=== PATIENT | female | born 1935 | race Caucasian/White ===

== ENCOUNTER 2018-12-27 17:18 | Emergency (ER) | payer BC, MEDICARE ==
[~2018-12-27] VITALS: Ht 170.2 cm; Wt 81.6 kg
--- OUTSIDE RECORDS SUMMARY | 2018-12-27 17:24 | XMS REPORT | Referral Summary ---
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 Name Role Phone Dago Bai PCP Encounter VC Date(s): 08/15/15 - 08/15/15 [facility] Le[facility], [address] [place] [address] Discharge Diagnosis: Hypertension Discharge Diagnosis: Hypothyroidism Discharge Diagnosis: Depression Discharge Diagnosis: Arthritis Discharge Diagnosis: Tension headache Discharge Disposition: 01-Home or Self Care Attending Physician: Dago Bai MD Admitting Physician: Dago Bai MD Vital Signs Most recent to 1 oldest [Reference Range]: Temperature Tympanic 5.7 degC [36.6-38.1 degC] *LOW* (08/15/15 11:26 AM) Peripheral Pulse 60 bpm Rate [60-100 bpm] (08/15/15 11:26 AM) Respiratory Rate 16 br/min [14-20 br/min] (08/15/15 11:26 AM) Blood Pressure 168/84 mmHg [90-140/60-90 mmHg] *HI* (08/15/15 11:26 AM) Problem List Condition Effective Dates Status Health Status Informant Allergic Active rhinitis(Confirmed) Allergies(Confirmed) Active Bladder Active problem(Confirmed) Blood Active transfusion(Confirme d) Bronchitis(Confirmed Active ) Chicken Active pox(Confirmed) Constipation(Confirm Active ed) Arthritis(Confirmed) Active Tension Active headache(Confirmed) Hearing Active loss(Confirmed) Hypertension(Confirm Active ed) Hyperthyroidism(Conf Active irmed) Hypothyroidism(Confi Active rmed) Osteoarthritis(Confi Active rmed) Overweight(Confirmed Active ) Pneumonia(Confirmed) Active Depression(Confirmed Active ) Sinus Active infection(Confirmed) Thyroid Active disease(Confirmed) Allergies, Adverse Reactions, Alerts Substance Reaction Severity Status acetaminophen ILL FEELING Active codeine Active HYDROcodone ILL FEELING Active iodine Active lisinopril Active pregabalin Active sulfamethoxazole Active Medications amitriptyline 25 mg oral tablet 2 tabs, Oral, Bedtime (once a day), # 180 tabs, 3 Refill(s), Pharmacy: [facility] [id number], 2 tabs Oral Bedtime (once a day) Start Date: 11/28/14 Status: Ordered amLODIPine 2.5 mg oral tablet See Instructions, TAKE ONE TABLET BY MOUTH EVERY DAY, # 90 tabs, 3 Refill(s), eRx: [facility] [id number], TAKE ONE TABLET BY MOUTH EVERY DAY Start Date: 09/18/14 Status: Ordered chlorzoxazone 500 mg oral tablet tabs, Oral, TID, 0 Refill(s) Start Date: 11/16/14 Status: Ordered Citracal + D Oral, BID, 0 Refill(s) Start Date: 06/07/14 Status: Ordered Coreg 25 mg oral tablet 1 tabs, Oral, BID, # 60 tabs, 10 Refill(s), Pharmacy: [facility] [id number], 1 tabs Oral BID Start Date: 11/16/14 Status: Ordered Fioricet oral tablet 1 tabs, Oral, q8hr, as needed for headache, [facility], # 90 tabs, 0 Refill(s), Pharmacy: [facility] [id number] Start Date: 08/15/15 Status: Ordered furosemide 40 mg oral tablet 1 tabs, Oral, Daily, # 90 tabs, 3 Refill(s), Pharmacy: [facility] [id number], 1 tabs Oral Daily Start Date: 11/28/14 Status: Ordered Inderal LA 120 mg oral capsule, extended release 1 caps, Oral, Daily, # 90 caps, 3 Refill(s), Pharmacy: [facility], 1 caps Oral Daily Start Date: 11/16/14 Status: Ordered Klor-Con M20 oral tablet, extended release 1 tabs, Oral, Daily, # 90 tabs, 3 Refill(s), Pharmacy: [facility] [id number], 1 tabs Oral Daily Start Date: 11/28/14 Status: Ordered levothyroxine 150 mcg (0.15 mg) oral tablet See Instructions, TAKE ONE TABLET BY MOUTH ONCE DAILY, # 90 tabs, eRx: [facility], TAKE ONE TABLET BY MOUTH ONCE DAILY Start Date: 06/21/15 Status: Ordered losartan 100 mg oral tablet See Instructions, TAKE ONE TABLET BY MOUTH EVERY DAY, # 90 tabs, 3 Refill(s), Pharmacy: [facility], TAKE ONE TABLET BY MOUTH EVERY DAY Start Date: 11/16/14 Status: Ordered meloxicam 15 mg oral tablet See Instructions, TAKE ONE TABLET BY MOUTH EVERY DAY, # 90 tabs, 3 Refill(s), eRx: [facility], TAKE ONE TABLET BY MOUTH EVERY DAY Start Date: 09/18/14 Status: Ordered multivitamin Daily, 0 Refill(s) Start Date: 06/07/14 Status: Ordered PARoxetine 20 mg oral tablet See Instructions, TAKE ONE TABLET BY MOUTH EVERY DAY, # 90 tabs, 4 Refill(s), eRx: [facility], TAKE ONE TABLET BY MOUTH EVERY DAY Start Date: 09/18/14 Status: Ordered pramipexole 0.25 mg oral tablet 1 tabs, Oral, BID, # 180 tabs, 3 Refill(s), Pharmacy: [facility] [id number], 1 tabs Oral BID Start Date: 11/16/14 Status: Ordered Vitamin C with Carole Hips Daily, 0 Refill(s) Start Date: 06/07/14 Status: Ordered Results Chemistry Most recent to 1 oldest [Reference Range]: Sodium Lvl [135-144 142 mEq/L mEq/L] (08/15/15 12:00 PM) Potassium Lvl 3.8 mEq/L [3.5-5.2 mEq/L] (08/15/15 12:00 PM) Chloride [99-111 108 mEq/L mEq/L] (08/15/15 12:00 PM) CO2 [22-31 mEq/L] 26 mEq/L (08/15/15 12:00 PM) AGAP [3-20] 8 (08/15/15 12:00 PM) BUN [10-20 mg/dL] 13 mg/dL (08/15/15 12:00 PM) Glucose Lvl [70-99 149 mg/dL mg/dL] *HI* (08/15/15 12:00 PM) Creatinine Lvl 0.92 mg/dL [0.57-1.11 mg/dL] (08/15/15 12:00 PM) eGFR [>60 mL/min] 59 mL/min 1 *ABN* (08/15/1500 PM) Calcium Lvl 9.0 mg/dL [8.9-10.5 mg/dL] (08/15/1500 PM) Albumin Lvl [3.4-4.8 4.2 gm/dL gm/dL] (08/15/15:00 PM) Total Protein 6.8 gm/dL [6.2-8.1 gm/dL] (08/15/15:00 PM) Globulin [1.8-4.0 2.6 gm/dL gm/dL] (08/15/15 12:00 PM) ALT [0-55 U/L] 19 U/L (08/15/15 PM) AST [5-34 U/L] 15 U/L (08/15/15:00 PM) Alk Phos [40-150 87 U/L U/L] (08/15/15:00 PM) Bili Total [0.2-1.2 0.7 mg/dL mg/dL] (08/15/15:00 PM) Chol [0-199 mg/dL] 229 mg/dL *HI* (08/15/1500 PM) Trig [0-149 mg/dL] 126 mg/dL (08/15/15:00 PM) HDL [40-84 mg/dL] 46 mg/dL (08/15/15:00 PM) LDL [0-130 mg/dL] 158 mg/dL *HI* (08/15/1500 PM) VLDL Cholesterol 25 mg/dL [0-28 mg/dL] (08/15/15 12:00 PM) Cardiac Risk 5.0 [0.0-5.0] (08/15/15 12:00 PM) TSH with Reflex Free 1.69 T4 [0.35-4.94] (08/15/15 12:00 PM) 1Result Comment: Multiply eGFR results by 1.21 for race. Immunizations Vaccine Date Refusal Reason influenza virus vaccine, inactivated 08/15/15 influenza virus vaccine, live 08/23/13 influenza virus vaccine, live 09/24/12 pneumococcal 23-polyvalent vaccine 04/02/09 Procedures Procedure Date Related Diagnosis Body Site Colonoscopy1, 2 08/30/10 Colon cancer screening3 10/26/09 Angioplasty Appendectomy Bladder repair Heel spur, removed from right foot Hysterectomy4 Knee replacement 1Colon cancer screening 2Polyp-like structures removed was benign, with inflammatory changes 3colonoscopy, polyp 4First year she had an abnormal then years later she had a vaginal hyst. Social History Social History Type Response Smoking Status Never smoker Assessment and Plan Extracted from: Title: Office Visit Note Author: Dago Bai MD Date: 08/15/15 Assessment/Plan Arthritis, Polyosteoarthritis, unspecified Chronic stable no change in current treatment. Ordered: Office Visit Level 4 Est 35373 Depression, Major depressive disorder, recurrent, mild Depression appears to be well-controlled no change in current treatment recommended. Ordered: Office Visit Level 4 Est 58715 Episodic tension-type headache, not intractable, Tension headache She feels like her headaches are pretty significantly since being on the Inderal will continue that without change. Fioricet was refilled. Ordered: Office Visit Level 4 Est 80036 Essential (primary) hypertension, Hypertension Blood pressures a little high here but it's been normal at home. No change in current treatment recommended. Fasting laboratory studies ordered today. Follow-up in 6 months. Ordered: influenza virus vaccine, inactivated, 0.5 mL, IntraMuscular, Once, First Dose: 08/15/15 12:00:00 CDT, Stop Date: 08/15/15 12:00:00 CDT Comprehensive Metabolic Panel Lipid Panel Office Visit Level 4 Est 25006 Hypothyroidism, Hypothyroidism, unspecified Ordered: TSH with Reflex Free T4 Orders: butalbital/acetaminophen/caffeine, 1 tabs, Oral, q8hr, as needed for headache, [facility], # 90 tabs, 0 Refill(s), Pharmacy: [id number]
--- OUTSIDE RECORDS SUMMARY | 2018-12-27 17:25 | XMS REPORT | Referral Summary ---
Author Author [facility], [facility] Organization [facility] Address Unknown Phone Unavailable Care Team Providers Care Record Keeper Name Role Phone Dago Bai PCP Encounter Date(s): 08/01/16 - 08/01/16 [facility] [address] [place] [id number] Discharge Diagnosis: Hypothyroidism Discharge Diagnosis: Depression Discharge Diagnosis: Allergic rhinitis Discharge Diagnosis: Hypertension Discharge Diagnosis: Osteoarthritis Discharge Disposition: 01-Home or Self Care Attending Physician: Dago Bai MD Admitting Physician: Dago Bai MD Vital Signs Most recent to 1 oldest [Reference Range]: Temperature Tympanic 35.7 degC [36.6-38.1 degC] *LOW* (08/01/16 9:53 AM) Peripheral Pulse 72 bpm Rate [60-100 bpm] (08/01/16 9:53 AM) Respiratory Rate 16 br/min [14-20 br/min] (08/01/16 9:53 AM) Blood Pressure 134/70 mmHg [90-140/60-90 mmHg] (08/01/16 9:53 AM) Problem List Condition Effective Dates Status Health Status Informant Allergic Active rhinitis(Confirmed) Allergies(Confirmed) Active Bladder Active problem(Confirmed) Blood Active transfusion(Confirme d) Bronchitis(Confirmed Active ) Chicken Active pox(Confirmed) Constipation(Confirm Active ed) Arthritis(Confirmed) Active Osteoarthritis(Confi Active rmed) Tension Active headache(Confirmed) Hearing Active loss(Confirmed) Hypertension(Confirm Active ed) Hyperthyroidism(Conf Active irmed) Hypothyroidism(Confi Active rmed) Overweight(Confirmed Active ) Pneumonia(Confirmed) Active Depression(Confirmed Active ) Sinus Active infection(Confirmed) Thyroid Active disease(Confirmed) Allergies, Adverse Reactions, Alerts Substance Reaction Severity Status acetaminophen ILL FEELING Active codeine Active HYDROcodone ILL FEELING Active iodine Active lisinopril Active pregabalin Active sulfamethoxazole Active Medications amitriptyline 25 mg oral tablet See Instructions, TAKE TWO TABLETS BY MOUTH ONCE DAILY AT BEDTIME, # 180 tabs, 1 Refill(s), eRx: [facility] [id number], TAKE TWO TABLETS BY MOUTH ONCE DAILY AT BEDTIME Start Date: 07/01/16 Status: Ordered amLODIPine 2.5 mg oral tablet See Instructions, TAKE ONE TABLET BY MOUTH ONCE DAILY, # 90 tabs, 1 Refill(s), eRx: [facility] [address], TAKE ONE TABLET BY MOUTH ONCE DAILY Start Date: 03/26/16 Status: Ordered chlorzoxazone 500 mg oral tablet See Instructions, TAKE ONE TABLET BY MOUTH THREE TIMES DAILY, # 200 tabs, eRx: [facility] [address], TAKE ONE TABLET BY MOUTH THREE TIMES DAILY Start Date: 05/23/16 Status: Ordered Citracal + D Oral, BID, 0 Refill(s) Start Date: 06/07/14 Status: Ordered Coreg 25 mg oral tablet 25 mg 1 tabs, Oral, BID, # 180 tabs, 3 Refill(s), Pharmacy: [facility] [address], 1 tabs Oral BID Start Date: 04/18/16 Status: Ordered Fioricet oral tablet 1 tabs, Oral, q8hr, as needed for headache, [facility], # 90 tabs, 0 Refill(s), Pharmacy: [place] [id number] Start Date: 08/15/15 Status: Ordered furosemide 40 mg oral tablet See Instructions, TAKE ONE TABLET BY MOUTH ONCE DAILY, # 90 tabs, 1 Refill(s), eRx: [facility] [address], TAKE ONE TABLET BY MOUTH ONCE DAILY Start Date: 07/01/16 Status: Ordered gabapentin 300 mg oral capsule 300 mg 1 caps, Oral, BID, # 60 caps, 1 Refill(s), Pharmacy: [facility] [address], 1 caps Oral BID Start Date: 04/18/16 Status: Ordered Klor-Con M20 oral tablet, extended release See Instructions, TAKE ONE TABLET BY MOUTH ONCE DAILY, # 90 tabs, 1 Refill(s), eRx: [facility] [address], TAKE ONE TABLET BY MOUTH ONCE DAILY Start Date: 03/17/16 Status: Ordered levothyroxine 150 mcg (0.15 mg) oral tablet See Instructions, TAKE ONE TABLET BY MOUTH ONCE DAILY, # 90 tabs, 10 Refill(s), eRx: [facility], TAKE ONE TABLET BY MOUTH ONCE DAILY Start Date: 09/03/15 Status: Ordered losartan 100 mg oral tablet See Instructions, TAKE ONE TABLET BY MOUTH ONCE DAILY, # 90 tabs, 1 Refill(s), eRx: [facility], TAKE ONE TABLET BY MOUTH ONCE DAILY Start Date: 07/30/16 Status: Ordered meloxicam 15 mg oral tablet See Instructions, TAKE ONE TABLET BY MOUTH ONCE DAILY, # 90 tabs, eRx: [facility] [address], TAKE ONE TABLET BY MOUTH ONCE DAILY Start Date: 07/22/16 Status: Ordered multivitamin Daily, 0 Refill(s) Start Date: 06/07/14 Status: Ordered PARoxetine 20 mg oral tablet See Instructions, TAKE ONE TABLET BY MOUTH ONCE DAILY, # 90 tabs, 1 Refill(s), eRx: [facility] [address], TAKE ONE TABLET BY MOUTH ONCE DAILY Start Date: 04/04/16 Status: Ordered pramipexole 0.25 mg oral tablet See Instructions, TAKE ONE TABLET BY MOUTH TWICE DAILY, # 180 tabs, 1 Refill(s) , eRx: [facility] [address], TAKE ONE TABLET BY MOUTH TWICE DAILY Start Date: 02/25/16 Status: Ordered prednisoLONE acetate ophthalmic 1 drops, Eye-Both, Daily, 0 Refill(s) Start Date: 01/30/16 Status: Ordered propranolol 120 mg oral capsule, extended release See Instructions, TAKE ONE CAPSULE BY MOUTH ONCE DAILY, # 90 caps, 1 Refill(s), eRx: [facility] [address], TAKE ONE CAPSULE BY MOUTH ONCE DAILY Start Date: 06/23/16 Status: Ordered triamcinolone 0.1% topical cream 1 nikolay, Topical, TID, # 30 g, 0 Refill(s), Pharmacy: [facility] [id number] Start Date: 01/30/16 Status: Ordered Vitamin C with Carole Hips Daily, 0 Refill(s) Start Date: 06/07/14 Status: Ordered Results No data available for this section Immunizations Vaccine Date Refusal Reason influenza virus vaccine, inactivated 08/01/16 influenza virus vaccine, inactivated 08/15/15 influenza virus vaccine, live 08/23/13 influenza virus vaccine, live 09/24/12 pneumococcal 13-valent conjugate vaccine 08/01/16 pneumococcal 23-polyvalent vaccine 04/02/09 Procedures Procedure Date [...] Visit Note Author: Dago Bai MD Date: 08/01/16 Assessment/Plan 1.Hypertension Blood pressure appears to be well-controlled no change in current treatment recommended. Recent laboratory studies reviewed. Report card reviewed and provided. Follow-up in 6 months. Ordered: Office Visit Level 4 Est 20973 2.Hypothyroidism She is due for TSH pedis are had lab drawn will see if they can run a TSHfrom the lab that was drawn previously. Continue current treatmentand dosage. Ordered: Office Visit Level 4 Est 28699 3.Depression Chronic relatively stable no change in current treatment recommended. Ordered: Office Visit Level 4 Est 34097 4.Osteoarthritis She appears to be having some trouble with her arthritis in her left thumb. We'll set up an appointment with Dr. Rg and see if they canhelp her with this perhaps with injection. Ordered: Office Visit Level 4 Est 34517 5.Allergic rhinitis Chronic stable no change in current treatment recommended. Ordered: Office Visit Level 4 Est 26859
--- OUTSIDE RECORDS SUMMARY | 2018-12-27 17:25 | XMS REPORT | Referral Summary ---
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 Name Role Phone Dago Bai PCP Encounter VC Date(s): 02/15/15 - 02/15/15 [facility], [address] [place] [id number] Discharge Diagnosis: Hypertension Discharge Diagnosis: Hypothyroidism Discharge Diagnosis: Osteoarthritis Discharge Diagnosis: Bilateral leg weakness Discharge Diagnosis: Depression Discharge Disposition: Home or Self Care Attending Physician: Dago Bai MD Admitting Physician: Dago Bai MD Vital Signs Most recent to 1 oldest [Reference Range]: Temperature Tympanic 36.2 degC [36.6-38.1 degC] *LOW* (02/15/15 10:17 AM) Peripheral Pulse 64 bpm Rate [60-100 bpm] (02/15/15 10:17 AM) Respiratory Rate 16 br/min [14-20 br/min] (02/15/15 10:17 AM) Blood Pressure 148/90 mmHg [90-140/60-90 mmHg] *HI* (02/15/15 10:17 AM) Problem List Condition Effective Dates Status Health Status Informant Allergic Active rhinitis(Confirmed) Allergies(Confirmed) Active Arthritis(Confirmed) Active Bladder Active problem(Confirmed) Blood Active transfusion(Confirme d) Bronchitis(Confirmed Active ) Chicken Active pox(Confirmed) Constipation(Confirm Active ed) Depression(Confirmed Active ) Hearing Active loss(Confirmed) Hypertension(Confirm Active ed) Hyperthyroidism(Conf Active irmed) Hypothyroidism(Confi Active rmed) Osteoarthritis(Confi Active rmed) Overweight(Confirmed Active ) Pneumonia(Confirmed) Active Sinus Active infection(Confirmed) Tension Active headache(Confirmed) Thyroid Active disease(Confirmed) Allergies, Adverse Reactions, Alerts Substance Reaction Severity Status acetaminophen ILL FEELING Active codeine Active HYDROcodone ILL FEELING Active iodine Active lisinopril Active pregabalin Active sulfamethoxazole Active Medications amitriptyline 25 mg oral tablet 2 tabs, Oral, Bedtime (once a day), # 180 tabs, 3 Refill(s), Pharmacy: [facility], 2 tabs Oral Bedtime (once a day) Start Date: 11/28/14 Status: Ordered amLODIPine 2.5 mg oral tablet See Instructions, TAKE ONE TABLET BY MOUTH EVERY DAY, # 90 tabs, 3 Refill(s), eRx: [facility], TAKE ONE TABLET BY MOUTH EVERY DAY Special Instructions: TAKE ONE TABLET BY MOUTH EVERY DAY Start Date: 09/18/14 Status: Ordered chlorzoxazone 500 mg oral tablet tabs, Oral, TID, 0 Refill(s) Start Date: 11/16/14 Status: Ordered Citracal + D Oral, BID, 0 Refill(s) Start Date: 06/07/14 Status: Ordered Coreg 25 mg oral tablet 1 tabs, Oral, BID, # 60 tabs, 10 Refill(s), Pharmacy: [place] [facility] [id number], 1 tabs Oral BID Start Date: 11/16/14 Status: Ordered Fioricet oral tablet 1 tabs, Oral, q8hr, as needed for headache, [facility], # 90 tabs, 0 Refill(s) Special Instructions: [facility] Start Date: 11/06/14 Stop Date: 11/06/15 Status: Ordered furosemide 40 mg oral tablet 1 tabs, Oral, Daily, # 90 tabs, 3 Refill(s), Pharmacy: [facility], 1 tabs Oral Daily Start Date: 11/28/14 Status: Ordered Inderal LA 120 mg oral capsule, extended release 1 caps, Oral, Daily, # 90 caps, 3 Refill(s), Pharmacy: [facility], 1 caps Oral Daily Start Date: 11/16/14 Status: Ordered Klor-Con M20 oral tablet, extended release 1 tabs, Oral, Daily, # 90 tabs, 3 Refill(s), Pharmacy: [facility], 1 tabs Oral Daily Start Date: 11/28/14 Status: Ordered levothyroxine 150 mcg (0.15 mg) oral tablet 1 tabs, Oral, Daily, # 90 tabs, 1 Refill(s), Pharmacy: [facility], 1 tabs Oral Daily Start Date: 09/25/14 Status: Ordered losartan 100 mg oral tablet See Instructions, TAKE ONE TABLET BY MOUTH EVERY DAY, # 90 tabs, 3 Refill(s), Pharmacy: [facility], TAKE ONE TABLET BY MOUTH EVERY DAY Special Instructions: TAKE ONE TABLET BY MOUTH EVERY DAY Start Date: 11/16/14 Status: Ordered meloxicam 15 mg oral tablet See Instructions, TAKE ONE TABLET BY MOUTH EVERY DAY, # 90 tabs, 3 Refill(s), eRx: [facility], TAKE ONE TABLET BY MOUTH EVERY DAY Special Instructions: TAKE ONE TABLET BY MOUTH EVERY DAY Start Date: 09/18/14 Status: Ordered multivitamin Daily, 0 Refill(s) Start Date: 06/07/14 Status: Ordered PARoxetine 20 mg oral tablet See Instructions, TAKE ONE TABLET BY MOUTH EVERY DAY, # 90 tabs, 4 Refill(s), eRx: [facility], TAKE ONE TABLET BY MOUTH EVERY DAY Special Instructions: TAKE ONE TABLET BY MOUTH EVERY DAY Start Date: 09/18/14 Status: Ordered pramipexole 0.25 mg oral tablet 1 tabs, Oral, BID, # 180 tabs, 3 Refill(s), Pharmacy: [facility] [place] [address], 1 tabs Oral BID Start Date: 11/16/14 Status: Ordered Vitamin C with Carole Hips Daily, 0 Refill(s) Start Date: 06/07/14 Status: Ordered Results No data available for this section Immunizations Vaccine Date Refusal Reason influenza virus vaccine, live 08/23/13 influenza virus [...] smoker Assessment and Plan Extracted from: Title: Ambulatory Patient Education Author: Dago Bai MD Date: Family Medicine Hypertension As your heart beats, it forces blood through your arteries. This force is your blood pressure. If the pressure is too high, it is called hypertension (HTN) or high blood pressure. HTN is dangerous because you may have it and not know it. High blood pressure may mean that your heart has to work harder to pump blood. Your arteries may be narrow or stiff. The extra work puts you at risk for heart disease, stroke, and other problems. Blood pressure consists of two numbers, a higher number over a lower, 110/72, for example. It is stated as "110 over 72." The ideal is below 120 for the top number (systolic ) and under 80 for the bottom (diastolic ). Write down your blood pressure today. You should pay close attention to your blood pressure if you have certain conditions such as: Heart failure. Prior heart attack. Diabetes Chronic kidney disease. Prior stroke. Multiple risk factors for heart disease. To see if you have HTN, your blood pressure should be measured while you are seated with your arm held at the level of the heart. It should be measured at least twice. A one-time elevated blood pressure reading (especially in the Emergency Department) does not mean that you need treatment. There may be conditions in which the blood pressure is different between your right and left arms. It is important to see your caregiver soon for a recheck. Most people have essential hypertension which means that there is not a specific cause. This type of high blood pressure may be lowered by changing lifestyle factors such as: Stress. Smoking. Lack of exercise. Excessive weight. Drug/tobacco/alcohol use. Eating less salt. Most people do not have symptoms from high blood pressure until it has caused damage to the body. Effective treatment can often prevent, delay or reduce that damage. TREATMENT When a cause has been identified, treatment for high blood pressure is directed at the cause. There are a large number of medications to treat HTN. These fall into several categories, and your caregiver will help you select the medicines that are best for you. Medications may have side effects. You should review side effects with your caregiver. If your blood pressure stays high after you have made lifestyle changes or started on medicines, Your medication(s) may need to be changed. Other problems may need to be addressed. Be certain you understand your prescriptions, and know how and when to take your medicine. Be sure to follow up with your caregiver within the time frame advised ( usually within two weeks) to have your blood pressure rechecked and to review your medications. If you are taking more than one medicine to lower your blood pressure, make sure you know how and at what times they should be taken. Taking two medicines at the same time can result in blood pressure that is too low. SEEK IMMEDIATE MEDICAL CARE IF: You develop a severe headache, blurred or changing vision, or confusion. You have unusual weakness or numbness, or a faint feeling. You have severe chest or abdominal pain, vomiting, or breathing problems. MAKE SURE YOU: Understand these instructions. Will watch your condition. Will get help right away if you are not doing well or get worse. Document Released: 10/12/2006 Document Revised: 01/03/2013 Document Reviewed: Exit[employer] Patient Information 2014 [place]. No follow up information was provided. Extracted from: Title: Office Visit Note Author: Dago Bai MD Date: 02/15/15 Assessment/Plan Bilateral leg weakness I recommended some physical therapy. I think this is likely due to deconditioning and perhaps related to her arthritis in her back. Hopefully the therapy will strength in her legs and reduce her fall risk and keep her more functional. If she has further problems with this she' ll let me know. Ordered: Office Visit Level 4 Est 63089 Depression Stable no change in current treatment. Follow-up in 3 months. Ordered: Office Visit Level 4 Est 12227 Hypertension Blood pressures at home within normal. Encouraged her to take her medication consistently. She has questions or concerns she'll let us now. Follow-up in 3 months. Ordered: Office Visit Level 4 Est 53296 Hypothyroidism Stable no change in current dosage. Ordered: Office Visit Level 4 Est 13429 Osteoarthritis Overall stable no change in current treatment.. Ordered: Office Visit Level 4 Est 63113
--- OUTSIDE RECORDS SUMMARY | 2018-12-27 17:25 | XMS REPORT | Referral Summary ---
Author Author [facility], [facility] Organization [facility] Le[facility] Address Unknown Phone Unavailable Care Team Providers Care Procurement Coordinator Name Role Phone Dago Bai PCP Encounter VC Date(s): 04/16/17 - 04/16/17 [facility]ARR[facility] Leija [place], [address] [place] [address]- Discharge Diagnosis: Dependent edema Discharge Diagnosis: Hypertension Discharge Disposition: 01-Home or Self Care Attending Physician: Dago Bai MD Admitting Physician: Dago Bai MD Vital Signs Most recent to 1 oldest [Reference Range]: Temperature Tympanic 36.5 degC [36.6-38.1 degC] *LOW* (04/16/17 9:22 AM) Peripheral Pulse 64 bpm Rate [60-100 bpm] (04/16/17 9:22 AM) Blood Pressure 128/66 mmHg [90-140/60-90 mmHg] (04/16/17 9:22 AM) Problem List Condition Effective Dates Status Health Status Informant Allergic Active rhinitis(Confirmed) Allergies(Confirmed) Active Bladder Active problem(Confirmed) Blood Active transfusion(Confirme d) Bronchitis(Confirmed Active ) Chicken Active pox(Confirmed) Constipation(Confirm Active ed) Arthritis(Confirmed) Active Osteoarthritis(Confi Active rmed) Tension Active headache(Confirmed) Hearing Active loss(Confirmed) Hypertension(Confirm Active ed) Hyperthyroidism(Conf Active irmed) Hypothyroidism(Confi Active rmed) [facility] arthritis, Active thumb, degenerative(Confirm ed) Overweight(Confirmed Active ) Pneumonia(Confirmed) Active Depression(Confirmed Active ) Sinus Active infection(Confirmed) Thyroid Active disease(Confirmed) Allergies, Adverse Reactions, Alerts Substance Reaction Severity Status acetaminophen ILL FEELING Active codeine Active HYDROcodone ILL FEELING Active iodine Active lisinopril Active pregabalin Active sulfamethoxazole Active Medications amitriptyline 25 mg oral tablet See Instructions, TAKE TWO TABLETS BY MOUTH ONCE DAILY AT BEDTIME, # 180 tabs, 2 Refill(s), eRx: [place] [address] Start Date: 12/31/16 Status: Ordered amLODIPine 2.5 mg oral tablet See Instructions, TAKE ONE TABLET BY MOUTH ONCE DAILY, # 90 tabs, 3 Refill(s), eRx: [place] [address] Start Date: 03/30/17 Status: Ordered butalbital/acetaminophen/caffeine 50 mg-325 mg-40 mg oral tablet See Instructions, TAKE ONE TABLET BY MOUTH EVERY 8 HOURS NEEDED FOR HEADACHE , # 90 tabs, eRx: [place] [address], TAKE ONE TABLET BY MOUTH EVERY 8 HOURS NEEDED FOR HEADACHE Start Date: 09/25/16 Status: Ordered chlorzoxazone 500 mg oral tablet See Instructions, TAKE ONE TABLET BY MOUTH THREE TIMES DAILY, # 200 tabs, eRx: [place] [address] Start Date: 03/30/17 Status: Ordered Citracal + D Oral, BID, 0 Refill(s) Start Date: 06/07/14 Status: Ordered Coreg 25 mg oral tablet 25 mg 1 tabs, Oral, BID, # 180 tabs, 3 Refill(s), Pharmacy: [place] [address], 1 tabs Oral BID Start Date: 04/18/16 Status: Ordered furosemide 40 mg oral tablet See Instructions, TAKE ONE TABLET BY MOUTH ONCE DAILY, # 90 tabs, 2 Refill(s), eRx: [place] [address] Start Date: 02/13/17 Status: Ordered gabapentin 300 mg oral capsule 300 mg 1 caps, Oral, BID, # 60 caps, 1 Refill(s), Pharmacy: [place] [address], 1 caps Oral BID Start Date: 04/18/16 Status: Ordered Klor-Con M20 oral tablet, extended release See Instructions, TAKE ONE TABLET BY MOUTH ONCE DAILY, # 90 tabs, 1 Refill(s), eRx: [place] [address], TAKE ONE TABLET BY MOUTH ONCE DAILY Start Date: 09/25/16 Status: Ordered levothyroxine 150 mcg (0.15 mg) oral tablet See Instructions, TAKE ONE TABLET BY MOUTH ONCE DAILY, # 90 tabs, 2 Refill(s), eRx: [place] [address], TAKE ONE TABLET BY MOUTH ONCE DAILY Start Date: 09/25/16 Status: Ordered losartan 100 mg oral tablet See Instructions, TAKE ONE TABLET BY MOUTH ONCE DAILY, # 90 tabs, 1 Refill(s), eRx: [facility], TAKE ONE TABLET BY MOUTH ONCE DAILY Start Date: 07/30/16 Status: Ordered meloxicam 15 mg oral tablet See Instructions, TAKE ONE HALF TABLET BY MOUTH ONCE DAILY, # 90 tabs, 0 Refill( s), other reason (Rx) Start Date: 04/07/17 Status: Ordered multivitamin Daily, 0 Refill(s) Start Date: 06/07/14 Status: Ordered PARoxetine 20 mg oral tablet See Instructions, TAKE ONE TABLET BY MOUTH ONCE DAILY, # 90 tabs, 1 Refill(s), eRx: [facility] Start Date: 11/11/16 Status: Ordered pramipexole 0.25 mg oral tablet See Instructions, TAKE ONE TABLET BY MOUTH TWICE DAILY, # 180 tabs, 1 Refill(s) , Pharmacy: [place] [address], TAKE ONE TABLET BY MOUTH TWICE DAILY Start Date: 11/11/16 Status: Ordered propranolol 120 mg oral capsule, extended release See Instructions, TAKE ONE CAPSULE BY MOUTH ONCE DAILY, # 90 caps, 1 Refill(s), eRx: [facility] Start Date: 12/31/16 Status: Ordered Tears Naturale drops, Eye-Both, BID, as needed for dry eyes, 0 Refill(s) Start Date: 04/07/17 Status: Ordered triamcinolone 0.1% topical cream 1 nikolay, Topical, TID, # 30 g, 0 Refill(s), Pharmacy: [place] [address] Start Date: 01/30/16 Status: Ordered Vitamin C with Carole Hips Daily, 0 Refill(s) Start Date: 06/07/14 Status: Ordered Results No data available for this section Immunizations Given and Recorded Vaccine Date Status Refusal Reason influenza virus vaccine, inactivated 08/01/16 Given influenza virus vaccine, inactivated 08/15/15 Given influenza virus vaccine, live 08/23/13 Given influenza virus vaccine, live 09/24/12 Given pneumococcal 13-valent conjugate vaccine 08/01/16 Given pneumococcal 23-polyvalent vaccine 04/02/09 Recorded Procedures Procedure Date Related Diagnosis Body Site [...] Visit Note Author: Dago Bai MD Date: 04/16/17 Assessment/Plan 1.Dependent edema Overall this is improved. I suggested that she take the second dose of Lasix on a when necessary basis. She is encouraged to try to keep her feet elevated when she has opportunity. I encouraged her to explorethe use of support stockings as recommended by Sarah during her last visit. Continue other medications without change. 2.Hypertension Overall stable no change in current treatment recommended. I told her would be glad to help withrecord transferwhen she establishes with a new physicianat her new home.
--- OUTSIDE RECORDS SUMMARY | 2018-12-27 17:25 | XMS REPORT | Referral Summary ---
Author Author [facility] Le[facility], [facility] Organization [facility] Le[facility] Address Unknown Phone Unavailable Care Team Providers Care Prom Burn Off Operator Name Role Phone Dago Bai PCP Encounter Date(s): 12/25/16 - 12/25/16 [facility]ARR[facility] Leija [place], [address] [place] [address] Discharge Diagnosis: Greater trochanteric bursitis of right hip Discharge Diagnosis: Pain of right hip joint Discharge Disposition: 01-Home or Self Care Attending Physician: Sarah Cross APRN Admitting Physician: Sarah Cross APRN Vital Signs Most recent to 1 oldest [Reference Range]: Temperature Tympanic 36 degC [36.6-38.1 degC] *LOW* (12/25/16 9:20 AM) Peripheral Pulse 68 bpm Rate [60-100 bpm] (12/25/16 9:20 AM) Blood Pressure 130/82 mmHg [90-140/60-90 mmHg] (12/25/16 9:20 AM) Problem List Condition Effective Dates Status [...] BEDTIME, # 180 tabs, 1 Refill(s), eRx: [facility] [place] [address], TAKE TWO TABLETS BY MOUTH ONCE DAILY AT BEDTIME Start Date: 07/01/16 Status: Ordered amLODIPine 2.5 mg oral tablet See Instructions, TAKE ONE TABLET BY MOUTH ONCE DAILY, # 90 tabs, 1 Refill(s), eRx: [facility] [place] [address], TAKE ONE TABLET BY MOUTH ONCE DAILY Start Date: 09/25/16 Status: Ordered butalbital/acetaminophen/caffeine 50 mg-325 mg-40 mg oral tablet See Instructions, TAKE ONE TABLET BY MOUTH EVERY 8 HOURS NEEDED FOR HEADACHE , # 90 tabs, eRx: [facility] [place] [address], TAKE ONE TABLET BY MOUTH EVERY 8 HOURS NEEDED FOR HEADACHE Start Date: 09/25/16 Status: Ordered chlorzoxazone 500 mg oral tablet See Instructions, TAKE ONE TABLET BY MOUTH THREE TIMES DAILY, # 200 tabs, eRx: [place] [address] Start Date: 11/11/16 Status: Ordered Citracal + D Oral, BID, 0 Refill(s) Start Date: 06/07/14 Status: Ordered Coreg 25 mg oral tablet 25 mg 1 tabs, Oral, BID, # 180 tabs, 3 Refill(s), Pharmacy: [place] [address], 1 tabs Oral BID Start Date: 04/18/16 Status: Ordered furosemide 40 mg oral tablet See Instructions, TAKE ONE TABLET BY MOUTH ONCE DAILY, # 90 tabs, 1 Refill(s), eRx: [place] [address], TAKE ONE TABLET BY MOUTH ONCE DAILY Start Date: 07/01/16 Status: Ordered gabapentin 300 mg oral capsule 300 mg 1 caps, Oral, BID, # 60 caps, 1 Refill(s), Pharmacy: [place] [address], 1 caps Oral BID Start Date: 04/18/16 Status: Ordered Klor-Con M20 oral tablet, extended release See Instructions, TAKE ONE TABLET BY MOUTH ONCE DAILY, # 90 tabs, 1 Refill(s), eRx: [place] [address], TAKE ONE TABLET BY MOUTH ONCE DAILY Start Date: 09/25/16 Status: Ordered levothyroxine 150 mcg (0.15 mg) oral tablet See Instructions, TAKE ONE TABLET BY MOUTH ONCE DAILY, # 90 tabs, 2 Refill(s), eRx: [facility]28, TAKE ONE TABLET BY MOUTH ONCE DAILY Start Date: 09/25/16 Status: Ordered losartan 100 mg oral tablet See Instructions, TAKE ONE TABLET BY MOUTH ONCE DAILY, # 90 tabs, 1 Refill(s), eRx: [facility], TAKE ONE TABLET BY MOUTH ONCE DAILY Start Date: 07/30/16 Status: Ordered meloxicam 15 mg oral tablet See Instructions, TAKE ONE TABLET BY MOUTH ONCE DAILY, # 90 tabs, eRx: [place] [address] Start Date: 11/11/16 Status: Ordered multivitamin Daily, 0 Refill(s) Start Date: 06/07/14 Status: Ordered PARoxetine 20 mg oral tablet See Instructions, TAKE ONE TABLET BY MOUTH ONCE DAILY, # 90 tabs, 1 Refill(s), eRx: [place] [address] Start Date: 11/11/16 Status: Ordered pramipexole 0.25 mg oral tablet See Instructions, TAKE ONE TABLET BY MOUTH TWICE DAILY, # 180 tabs, 1 Refill(s) , Pharmacy: [place] [address], TAKE ONE TABLET BY MOUTH TWICE DAILY Start Date: 11/11/16 Status: Ordered prednisoLONE acetate ophthalmic 1 drops, Eye-Both, Daily, 0 Refill(s) Start Date: 01/30/16 Status: Ordered propranolol 120 mg oral capsule, extended release See Instructions, TAKE ONE CAPSULE BY MOUTH ONCE DAILY, # 90 caps, 1 Refill(s), eRx: [place] [address], TAKE ONE CAPSULE BY MOUTH ONCE DAILY Start Date: 06/23/16 Status: Ordered triamcinolone 0.1% topical cream 1 nikolay, Topical, TID, # 30 g, 0 Refill(s), Pharmacy: [place] [address] Start Date: 01/30/16 Status: Ordered Vitamin C [...] Procedures Procedure Date Related Diagnosis Body Site Arthrocentesis, aspiration and/or injection, 12/25/16 major joint or bursa (eg, shoulder, hip, knee, subacromial bursa); without ultrasound guidance Colonoscopy1, 2 08/30/10 Colon cancer screening3 10/26/09 [...] and Plan Extracted from: Title: Office Visit Note-right hip Author: Sarah Cross APRN Date: pain Assessment/Plan 1.Greater trochanteric bursitis of right hip Discussed cortisone injection versus physical therapyversus pain control. Patient would like to try a cortisone injection. Side effects discussed. Risk of infection and bleeding discussed. Verbal consent is obtained. Patient is placed in a side lyingposition. Using sterile no touch technique utilizing 25-gauge 1-1/2 inchneedle. 1 mL of Kenalog (40 mg) and 1 mL of bupivacainewas injectedin the point of maximaltendernessin analiquot fashion. She tolerated this well and a sterile dressing was applied. She voices pain that had improved some but not completely resolved. 2.Pain of right hip joint X-ray of the hip obtained and reviewed. Mild degenerative changes. Discussed that to working diagnosis is the bursitis. Cannot completely exclude that her painmay be coming more from her backas she does have chronic low back pain and some mild radiculopathy symptoms. I requested she call us back on Thursday and give us an update on her pain. If anything changes in the meantime to let us know. Continue meloxicam, gabapentinas she has been doing and Tylenolas needed. Ordered: XR Hip w Pelvis when perform 2-3 vws RT
--- OUTSIDE RECORDS SUMMARY | 2018-12-27 17:25 | XMS REPORT | Referral Summary ---
Author Author Via HARRIS Leija Newton, [facility] Organization Via HARRIS Leija Newton [facility] Address Unknown Phone Unavailable Care Team Providers Care Tank Car Reconditioner Name Role Phone Dago Bai PCP Encounter Date(s): 10/16/15 - 10/16/15 Via HARRIS Leija Newton, [address] [place] [address] Discharge Diagnosis: Acute URI Discharge Diagnosis: Pharyngitis Discharge Disposition: 01-Home or Self Care Attending Physician: Sarah Cross APRN Admitting Physician: Sarah Cross APRN Vital Signs Most recent to 1 oldest [Reference Range]: Temperature Tympanic 36.9 degC [36.6-38.1 degC] (10/16/15 1:00 PM) Peripheral Pulse 68 bpm Rate [60-100 bpm] (10/16/15 1:00 PM) Blood Pressure 124/76 mmHg [90-140/60-90 mmHg] (10/16/15 1:00 PM) Problem List Condition Effective Dates Status Health [...] day), # 180 tabs, 3 Refill(s), Pharmacy: [id number], 2 tabs Oral Bedtime (once a day) Start Date: 11/28/14 Status: Ordered amLODIPine 2.5 mg oral tablet See Instructions, TAKE ONE TABLET BY MOUTH EVERY DAY, # 90 tabs, 1 Refill(s), eRx: [facility], TAKE ONE TABLET BY MOUTH EVERY DAY Start Date: 09/26/15 Status: Ordered amoxicillin 875 mg oral tablet 875 mg 1 tabs, Oral, BID, X 10 days, # 20 tabs, 0 Refill(s), 1 tabs Oral BID, x10 days Start Date: 10/16/15 Stop Date: 10/26/15 Status: Ordered chlorzoxazone 500 mg oral tablet tabs, Oral, TID, 0 Refill(s) Start Date: 11/16/14 Status: Ordered Citracal + D Oral, BID, 0 Refill(s) Start Date: 06/07/14 Status: Ordered Coreg 25 mg oral tablet 1 tabs, Oral, BID, # 60 tabs, 10 Refill(s), Pharmacy: [facility], 1 tabs Oral BID Start Date: 11/16/14 Status: Ordered Fioricet oral tablet 1 tabs, Oral, q8hr, as needed for headache, [facility], # 90 tabs, 0 Refill(s), Pharmacy: [facility] Start Date: 08/15/15 Status: Ordered furosemide 40 mg oral tablet 1 tabs, Oral, Daily, # 90 tabs, 3 Refill(s), Pharmacy: [facility], 1 tabs Oral Daily Start Date: 11/28/14 Status: Ordered Inderal LA 120 mg oral capsule, extended release 1 caps, Oral, Daily, # 90 caps, 3 Refill(s), Pharmacy: [facility], 1 caps Oral Daily Start Date: 11/16/14 Status: Ordered Klor-Con M20 oral tablet, extended release 1 tabs, Oral, Daily, # 90 tabs, 3 Refill(s), Pharmacy: [facility], 1 tabs Oral Daily Start Date: 11/28/14 Status: Ordered levothyroxine 150 mcg (0.15 mg) oral tablet See Instructions, TAKE ONE TABLET BY MOUTH ONCE DAILY, # 90 tabs, 10 Refill(s), eRx: [facility], TAKE ONE TABLET BY MOUTH ONCE DAILY Start Date: 09/03/15 Status: Ordered losartan 100 mg oral tablet See Instructions, TAKE ONE TABLET BY MOUTH EVERY DAY, # 90 tabs, 3 Refill(s), Pharmacy: [facility], TAKE ONE TABLET BY MOUTH EVERY DAY Start Date: 11/16/14 Status: Ordered meloxicam 15 mg oral tablet See Instructions, TAKE ONE TABLET BY MOUTH EVERY DAY, # 90 tabs, 3 Refill(s), eRx: [facility], TAKE ONE TABLET BY MOUTH EVERY DAY Start Date: 09/18/14 Status: Ordered multivitamin Daily, 0 Refill(s) Start Date: 06/07/14 Status: Ordered PARoxetine 20 mg oral tablet See Instructions, TAKE ONE TABLET BY MOUTH EVERY DAY, # 90 tabs, 4 Refill(s), eRx: [facility], TAKE ONE TABLET BY MOUTH EVERY DAY Start Date: 09/18/14 Status: Ordered pramipexole 0.25 mg oral tablet 1 tabs, Oral, BID, # 180 tabs, 3 Refill(s), Pharmacy: [place] [id number], 1 tabs Oral BID Start Date: 11/16/14 [...] and Plan Extracted from: Title: Office Visit Note-URI Author: Sarah Cross GERIATRICS PHYSICIAN Date: Assessment/Plan 1.Pharyngitis Rapid strep obtained. We'll call patient with results. Discussed with patient this is most likely viral in nature. If not improving over the next 2-3 days patient may start amoxicillin 875 mg one by mouth twice a day 10 days. Encourage extra rest, extra fluids. [id number] Mucinex or Delsym per package instructions are good choices for cough. Salt water gargles Chloraseptic spray, Tylenol for sore throat. Soft foods. Notify office if symptoms fail to improve. Ordered: Office Visit Level 3 Est 14233 Rapid Strep 2.Acute URI Ordered: Office Visit Level 3 Est 07987 Orders: amoxicillin, 875 mg 1 tabs, Oral, BID, X 10 days, # 20 tabs, 0 Refill( s), 1 tabs Oral BID,x10 days
--- OUTSIDE RECORDS SUMMARY | 2018-12-27 17:25 | XMS REPORT | Referral Summary ---
Author Author Via HARRIS Leija Newton, [facility] Organization Via PatriciaHARRIS Garza Newton [facility] Address Unknown Phone Unavailable Care Team Providers Care Photovoltaic Testing Technician Name Role Phone Dago Bai PCP Encounter VC Date(s): 03/27/17 - 03/27/17 [facility] HARRIS Leija Newton [address] [place] [address]- Discharge Diagnosis: Dependent edema Discharge Diagnosis: Osteoarthritis Discharge Diagnosis: Hypertension Discharge Diagnosis: Hypothyroidism Discharge Disposition: 01-Home or Self Care Attending Physician: Dago Bai MD Admitting Physician: Dago Bai MD Vital Signs Most recent to 1 oldest [Reference Range]: Temperature Tympanic 36.4 degC [36.6-38.1 degC] *LOW* (03/27/17 9:18 AM) Peripheral Pulse 64 bpm Rate [60-100 bpm] (03/27/17 9:18 AM) Respiratory Rate 18 br/min [14-20 br/min] (03/27/17 9:18 AM) Blood Pressure 130/68 mmHg [90-140/60-90 mmHg] (03/27/17 9:18 AM) Problem List Condition Effective Dates Status [...] BEDTIME, # 180 tabs, 2 Refill(s), eRx: [facility] [facility] [id number] Start Date: 12/31/16 Status: Ordered amLODIPine 2.5 mg oral tablet See Instructions, TAKE ONE TABLET BY MOUTH ONCE DAILY, # 90 tabs, 1 Refill(s), eRx: [facility] [id number], TAKE ONE TABLET BY MOUTH ONCE DAILY Start Date: 09/25/16 Status: Ordered butalbital/acetaminophen/caffeine 50 mg-325 mg-40 mg oral tablet See Instructions, TAKE ONE TABLET BY MOUTH EVERY 8 HOURS NEEDED FOR HEADACHE , # 90 tabs, eRx: [place] [id number], TAKE ONE TABLET BY MOUTH EVERY 8 HOURS NEEDED FOR HEADACHE Start Date: 09/25/16 Status: Ordered chlorzoxazone 500 mg oral tablet See Instructions, TAKE ONE TABLET BY MOUTH THREE TIMES DAILY, # 200 tabs, eRx: [place] [id number] Start Date: 11/11/16 Status: Ordered Citracal + D Oral, BID, 0 Refill(s) Start Date: 06/07/14 Status: Ordered Coreg 25 mg oral tablet 25 mg 1 tabs, Oral, BID, # 180 tabs, 3 Refill(s), Pharmacy: [place] [id number], 1 tabs Oral BID Start Date: 04/18/16 Status: Ordered furosemide 40 mg oral tablet See Instructions, TAKE ONE TABLET BY MOUTH ONCE DAILY, # 90 tabs, 2 Refill(s), eRx: [place] [id number] Start Date: 02/13/17 Status: Ordered gabapentin 300 mg oral capsule 300 mg 1 caps, Oral, BID, # 60 caps, 1 Refill(s), Pharmacy: [place] [id number], 1 caps Oral BID Start Date: 04/18/16 Status: Ordered Klor-Con M20 oral tablet, extended release See Instructions, TAKE ONE TABLET BY MOUTH ONCE DAILY, # 90 tabs, 1 Refill(s), eRx: [place] [id number], TAKE ONE TABLET BY MOUTH ONCE DAILY Start Date: 09/25/16 Status: Ordered levothyroxine 150 mcg (0.15 mg) oral tablet See Instructions, TAKE ONE TABLET BY MOUTH ONCE DAILY, # 90 tabs, 2 Refill(s), eRx: [place] [id number], TAKE ONE TABLET BY MOUTH ONCE DAILY Start Date: 09/25/16 Status: Ordered losartan 100 mg oral tablet See Instructions, TAKE ONE TABLET BY MOUTH ONCE DAILY, # 90 tabs, 1 Refill(s), eRx: [place] [id number], TAKE ONE TABLET BY MOUTH ONCE DAILY Start Date: 07/30/16 Status: Ordered meloxicam 15 mg oral tablet See Instructions, TAKE ONE TABLET BY MOUTH ONCE DAILY, # 90 tabs, eRx: [place] [id number] Start Date: 02/13/17 Status: Ordered multivitamin Daily, 0 Refill(s) Start Date: 06/07/14 Status: Ordered PARoxetine 20 mg oral tablet See Instructions, TAKE ONE TABLET BY MOUTH ONCE DAILY, # 90 tabs, 1 Refill(s), eRx: [place] [id number] Start Date: 11/11/16 Status: Ordered pramipexole 0.25 mg oral tablet See Instructions, TAKE ONE TABLET BY MOUTH TWICE DAILY, # 180 tabs, 1 Refill(s) , Pharmacy: [place] [address], TAKE ONE TABLET BY MOUTH TWICE DAILY Start Date: 11/11/16 Status: Ordered prednisoLONE acetate ophthalmic 1 drops, Eye-Both, Daily, 0 Refill(s) Start Date: 01/30/16 Status: Ordered propranolol 120 mg oral capsule, extended release See Instructions, TAKE ONE CAPSULE BY MOUTH ONCE DAILY, # 90 caps, 1 Refill(s), eRx: [place] [id number] Start Date: 12/31/16 Status: Ordered triamcinolone 0.1% topical cream 1 nikolay, Topical, TID, # 30 g, 0 Refill(s), Pharmacy: [place] [id number] Start Date: 01/30/16 Status: Ordered Vitamin C [...] Visit Note Author: Dago Bai MD Date: 03/27/17 Assessment/Plan 1.Dependent edema I think this edema is primarily dependentand in part may be due to medications. I've asked her to hold her meloxicamfor the next couple weeks. She may use extra strengthor arthritis strength Tylenolas a substitute. I've also asked her to increase her furosemide to40 mg twice a day for the next week. I encouraged her to continue to try to keep her legs elevated. If she is not improving with the edema over the next few weeks she'll let me now. We also discussed using some compression that may be of some benefit. 2.Hypertension Blood pressures relatively stable. We discussed that the amlodipine may be contributing to the swelling but I want her to continue on it and her other regular medications. 3.Hypothyroidism Chronic and stable no change in current treatment recommended. 4.Osteoarthritis We will take her off the meloxicam and she may usearthritis strength Tylenol as mentioned above. She's having increased trouble with her arthritis she'll let me know.
--- OUTSIDE RECORDS SUMMARY | 2018-12-27 17:26 | XMS REPORT | Referral Summary ---
Author Author Via HARRIS Leija Newton, [facility] Organization Via PatriciaHARRIS Garza Newton [facility] Address Unknown Phone Unavailable Care Team Providers Care Creative Guru Name Role Phone Dago Bai PCP Encounter VC Date(s): 01/30/16 - 01/30/16 Via HARRIS Leija Newton [address] [place] [address] Discharge Diagnosis: Hypothyroidism Discharge Diagnosis: Hypertension Discharge Diagnosis: Osteoarthritis Discharge Diagnosis: Allergic rhinitis Discharge Disposition: 01-Home or Self Care Attending Physician: Dago Bai MD Admitting Physician: Dago Bai MD Vital Signs Most recent to 1 oldest [Reference Range]: Temperature Tympanic 36 degC [36.6-38.1 degC] *LOW* (01/30/16 11:09 AM) Peripheral Pulse 72 bpm Rate [60-100 bpm] (01/30/16 11:09 AM) Respiratory Rate 16 br/min [14-20 br/min] (01/30/16 11:09 AM) Blood Pressure 144/84 mmHg [90-140/60-90 mmHg] *HI* (01/30/16 11:09 AM) Problem List Condition Effective Dates Status [...] BEDTIME, # 180 tabs, 1 Refill(s), eRx: [facility], TAKE TWO TABLETS BY MOUTH ONCE DAILY AT BEDTIME Start Date: 12/24/15 Status: Ordered amLODIPine 2.5 mg oral tablet See Instructions, TAKE ONE TABLET BY MOUTH EVERY DAY, # 90 tabs, 1 Refill(s), eRx: [place] [id number], TAKE ONE TABLET BY MOUTH EVERY DAY Start Date: 09/26/15 Status: Ordered chlorzoxazone 500 mg oral tablet 500 mg 1 tabs, Oral, TID, # 200 tabs, 0 Refill(s), Pharmacy: [place] [address], 1 tabs Oral TID Start Date: 11/12/15 Stop Date: 11/12/16 Status: Ordered Citracal + D Oral, BID, 0 Refill(s) Start Date: 06/07/14 Status: Ordered Coreg 25 mg oral tablet 25 mg 1 tabs, Oral, BID, # 180 tabs, 0 Refill(s), Pharmacy: [place] [address], 1 tabs Oral BID Start Date: 12/17/15 Status: Ordered Fioricet oral tablet 1 tabs, Oral, q8hr, as needed for headache, [facility], # 90 tabs, 0 Refill(s), Pharmacy: [place] [address] Start Date: 08/15/15 Status: Ordered furosemide 40 mg oral tablet See Instructions, TAKE ONE TABLET BY MOUTH ONCE DAILY, # 90 tabs, 1 Refill(s), eRx: [place] [address], TAKE ONE TABLET BY MOUTH ONCE DAILY Start Date: 12/24/15 Status: Ordered Klor-Con M20 oral tablet, extended release 1 tabs, Oral, Daily, # 90 tabs, 3 Refill(s), Pharmacy: [place] [id number], 1 tabs Oral Daily Start Date: 11/28/14 Status: Ordered levothyroxine 150 mcg (0.15 mg) oral tablet See Instructions, TAKE ONE TABLET BY MOUTH ONCE DAILY, # 90 tabs, 10 Refill(s), eRx: [place] [address], TAKE ONE TABLET BY MOUTH ONCE DAILY Start Date: 09/03/15 Status: Ordered losartan 100 mg oral tablet See Instructions, TAKE ONE TABLET BY MOUTH ONCE DAILY, # 90 tabs, eRx: [facility], TAKE ONE TABLET BY MOUTH ONCE DAILY Start Date: 01/21/16 Status: Ordered meloxicam 15 mg oral tablet See Instructions, TAKE ONE TABLET BY MOUTH EVERY DAY, # 90 tabs, eRx: [facility], TAKE ONE TABLET BY MOUTH EVERY DAY Start Date: 01/21/16 Status: Ordered multivitamin Daily, 0 Refill(s) Start Date: 06/07/14 Status: Ordered PARoxetine 20 mg oral tablet See Instructions, TAKE ONE TABLET BY MOUTH EVERY DAY, # 90 tabs, eRx: [facility], TAKE ONE TABLET BY MOUTH EVERY DAY Start Date: 01/21/16 Status: Ordered pramipexole 0.25 mg oral tablet 1 tabs, Oral, BID, # 180 tabs, 3 Refill(s), Pharmacy: [place] [address], 1 tabs Oral BID Start Date: 11/16/14 Status: Ordered prednisoLONE acetate ophthalmic 1 drops, Eye-Both, Daily, 0 Refill(s) Start Date: 01/30/16 Status: Ordered propranolol 120 mg oral capsule, extended release See Instructions, TAKE ONE CAPSULE BY MOUTH ONCE DAILY, # 90 caps, 1 Refill(s), eRx: [facility], TAKE ONE CAPSULE BY MOUTH ONCE DAILY Start Date: 12/19/15 Status: Ordered triamcinolone 0.1% topical cream 1 nikolay, Topical, TID, # 30 g, 0 Refill(s), Pharmacy: [place] [id number] Start Date: 01/30/16 Status: Ordered Vitamin C [...] Visit Note Author: Dago Bai MD Date: 01/30/16 Assessment/Plan Allergic rhinitis, Allergic rhinitis due to pollen Chronic stable no change in current treatment is recommended. Ordered: Office Visit Level 4 Est 79905 Essential (primary) hypertension, Hypertension Blood pressure is adequately controlled for now want her at at this point. Medications and treatments reviewed no changes are recommended at this time. Laboratory studies from last fall reviewed. Report card reviewed and provided. Follow-up in 6 months with fasting lab prior to that appointment. Ordered: Office Visit Level 4 Est 15111 Hypothyroidism, Hypothyroidism, unspecified Chronic stable on current dosage will check lab withnext appointment. Ordered: Office Visit Level 4 Est 55108 Osteoarthritis, Polyosteoarthritis, unspecified Chronic stable no change in current treatment. Ordered: Office Visit Level 4 Est 60194 Orders: triamcinolone topical, 1 nikolay, Topical, TID, # 30 g, 0 Refill(s), Pharmacy: [id number]
--- OUTSIDE RECORDS SUMMARY | 2018-12-27 17:26 | XMS REPORT | Referral Summary ---
Author Author Via HARRIS Leija Newton, [facility] Organization Via HARRIS Leija Newton [facility] Address Unknown Phone Unavailable Care Team Providers Care Bilingual Administrative Assistant Name Role Phone Dago Bai PCP Encounter VC Date(s): 08/15/15 - 08/15/15 Via HARRIS Leija Newton, [address] [place] [address]- Discharge Diagnosis: Hypertension Discharge Diagnosis: Hypothyroidism Discharge [...] BEDTIME, # 180 tabs, 1 Refill(s), eRx: [facility], TAKE TWO TABLETS BY MOUTH ONCE DAILY AT BEDTIME Start Date: 12/24/15 Status: Ordered amLODIPine 2.5 mg oral tablet See Instructions, TAKE ONE TABLET BY MOUTH EVERY DAY, # 90 tabs, 1 Refill(s), eRx: [place] [address], TAKE ONE TABLET BY MOUTH EVERY DAY Start Date: 09/26/15 Status: Ordered chlorzoxazone 500 mg oral tablet 500 mg 1 tabs, Oral, TID, # 200 tabs, 0 Refill(s), Pharmacy: [place] [address], 1 tabs Oral TID Start Date: 11/12/15 Stop Date: 11/12/16 Status: Ordered Citracal + D Oral, BID, 0 Refill(s) Start Date: 06/07/14 Status: Ordered Coreg 25 mg oral tablet 25 mg 1 tabs, Oral, BID, # 180 tabs, 0 Refill(s), Pharmacy: [place] [address], 1 tabs Oral BID Start Date: 12/17/15 Status: Ordered Fioricet oral tablet 1 tabs, Oral, q8hr, as needed for headache, [facility], # 90 tabs, 0 Refill(s), Pharmacy: [place] [address] Start Date: 08/15/15 Status: Ordered furosemide 40 mg oral tablet See Instructions, TAKE ONE TABLET BY MOUTH ONCE DAILY, # 90 tabs, 1 Refill(s), eRx: [place] [address], TAKE ONE TABLET BY MOUTH ONCE DAILY Start Date: 12/24/15 Status: Ordered Klor-Con M20 oral tablet, extended release 1 tabs, Oral, Daily, # 90 tabs, 3 Refill(s), Pharmacy: [place] [address], 1 tabs Oral Daily Start Date: 11/28/14 Status: Ordered levothyroxine 150 mcg (0.15 mg) oral tablet See Instructions, TAKE ONE TABLET BY MOUTH ONCE DAILY, # 90 tabs, 10 Refill(s), eRx: [place] [address], TAKE ONE TABLET BY MOUTH ONCE DAILY Start Date: 09/03/15 Status: Ordered losartan 100 mg oral tablet See Instructions, TAKE ONE TABLET BY MOUTH ONCE DAILY, # 90 tabs, eRx: [facility], TAKE ONE TABLET BY MOUTH ONCE DAILY Start Date: 01/21/16 Status: Ordered meloxicam 15 mg oral tablet See Instructions, TAKE ONE TABLET BY MOUTH EVERY DAY, # 90 tabs, eRx: [facility], TAKE ONE TABLET BY MOUTH EVERY DAY Start Date: 01/21/16 Status: Ordered multivitamin Daily, 0 Refill(s) Start Date: 06/07/14 Status: Ordered PARoxetine 20 mg oral tablet See Instructions, TAKE ONE TABLET BY MOUTH EVERY DAY, # 90 tabs, eRx: [facility], TAKE ONE TABLET BY MOUTH EVERY DAY Start Date: 01/21/16 Status: Ordered pramipexole 0.25 mg oral tablet 1 tabs, Oral, BID, # 180 tabs, 3 Refill(s), Pharmacy: [place] [address], 1 tabs Oral BID Start Date: 11/16/14 Status: Ordered prednisoLONE acetate ophthalmic 1 drops, Eye-Both, Daily, 0 Refill(s) Start Date: 01/30/16 Status: Ordered propranolol 120 mg oral capsule, extended release See Instructions, TAKE ONE CAPSULE BY MOUTH ONCE DAILY, # 90 caps, 1 Refill(s), eRx: [facility], TAKE ONE CAPSULE BY MOUTH ONCE DAILY Start Date: 12/19/15 Status: Ordered triamcinolone 0.1% topical cream 1 nikolay, Topical, TID, # 30 g, 0 Refill(s), Pharmacy: [place] [address] Start Date: 01/30/16 Status: Ordered Vitamin C [...] eGFR [>60 mL/min] 59 mL/min 1 *ABN* (08/15/15:00 PM) Calcium Lvl 9.0 mg/dL [8.9-10.5 mg/dL] (08/15/15:00 PM) Albumin Lvl [3.4-4.8 4.2 gm/dL gm/dL] (08/15/15 12:00 PM) Total Protein 6.8 gm/dL [6.2-8.1 gm/dL] (08/15/15 12:00 PM) Globulin [1.8-4.0 2.6 gm/dL gm/dL] (08/15/15 12:00 PM) ALT [0-55 U/L] 19 U/L (08/15/15:00 PM) AST [5-34 U/L] 15 U/L (08/15/15 12:00 PM) Alk Phos [40-150 87 U/L U/L] (08/15/15 12:00 PM) Bili Total [0.2-1.2 0.7 mg/dL mg/dL] (08/15/15 12:00 PM) Chol [0-199 mg/dL] 229 mg/dL *HI* (08/15/15 12:00 PM) Trig [0-149 mg/dL] 126 mg/dL (08/15/15 12:00 PM) HDL [40-84 mg/dL] 46 mg/dL (08/15/15 12:00 PM) LDL [0-130 mg/dL] 158 mg/dL *HI* (08/15/15:00 PM) VLDL Cholesterol 25 mg/dL [0-28 mg/dL] [...] treatment. Ordered: Office Visit Level 4 Est 41212 Depression, Major depressive disorder, recurrent, mild Depression appears to be well-controlled no change in current treatment recommended. Ordered: Office Visit Level 4 Est 69428 Episodic tension-type headache, not intractable, Tension headache She feels like her headaches are pretty significantly since being on the Inderal will continue that without change. Fioricet was refilled. Ordered: Office Visit Level 4 Est 49355 Essential (primary) hypertension, Hypertension Blood pressures a little high here but it's been normal at home. No change in current treatment recommended. Fasting laboratory studies ordered today. Follow-up in 6 months. Ordered: influenza virus vaccine, inactivated, 0.5 mL, IntraMuscular, Once, First Dose: 08/15/15 12:00:00 CDT, Stop Date: 08/15/15 12:00:00 CDT Comprehensive Metabolic Panel Lipid Panel Office Visit Level 4 Est 74676 Hypothyroidism, Hypothyroidism, unspecified Ordered: TSH with Reflex Free T4 Orders: butalbital/acetaminophen/caffeine, 1 tabs, Oral, q8hr, as needed for headache, [facility], # 90 tabs, 0 Refill(s), Pharmacy: [id number]
--- OUTSIDE RECORDS SUMMARY | 2018-12-27 17:26 | XMS REPORT | Referral Summary ---
Author Author [facility] Organization [facility] Address Unknown Phone Unavailable Care Team Providers Care Manufacturing Engineering Director Name Role Phone Dago Bai PCP Encounter VC Date(s): 09/03/16 - 09/03/16 [facility] [address] [facility] [place] [id number] Discharge Diagnosis: CMC arthritis, thumb, degenerative Discharge Disposition: 01-Home or Self Care Attending Physician: Peyman Martin MD Admitting Physician: Peyman Martin MD Vital Signs Most recent to 1 oldest [Reference Range]: Respiratory Rate 16 br/min [14-20 br/min] (09/03/16 10:59 AM) Problem List Condition Effective Dates Status [...] BEDTIME, # 180 tabs, 1 Refill(s), eRx: [id number], TAKE TWO TABLETS BY MOUTH ONCE DAILY AT BEDTIME Start Date: 07/01/16 Status: Ordered amLODIPine 2.5 mg oral tablet See Instructions, TAKE ONE TABLET BY MOUTH ONCE DAILY, # 90 tabs, 1 Refill(s), eRx: [place] [id number], TAKE ONE TABLET BY MOUTH ONCE DAILY Start Date: 03/26/16 Status: Ordered chlorzoxazone 500 mg oral tablet See Instructions, TAKE ONE TABLET BY MOUTH THREE TIMES DAILY, # 200 tabs, eRx: [place] [id number], TAKE ONE TABLET BY MOUTH THREE TIMES DAILY Start Date: 05/23/16 Status: Ordered Citracal + D Oral, BID, 0 Refill(s) Start Date: 06/07/14 Status: Ordered Coreg 25 mg oral tablet 25 mg 1 tabs, Oral, BID, # 180 tabs, 3 Refill(s), Pharmacy: [place] [id number], 1 tabs Oral BID Start Date: 04/18/16 Status: Ordered Fioricet oral tablet 1 tabs, Oral, q8hr, as needed for headache, [facility], # 90 tabs, 0 Refill(s), Pharmacy: [place] [id number] Start Date: 08/15/15 Status: Ordered furosemide 40 mg oral tablet See Instructions, TAKE ONE TABLET BY MOUTH ONCE DAILY, # 90 tabs, 1 Refill(s), eRx: [place] [id number], TAKE ONE TABLET BY MOUTH ONCE DAILY Start Date: 07/01/16 Status: Ordered gabapentin 300 mg oral capsule 300 mg 1 caps, Oral, BID, # 60 caps, 1 Refill(s), Pharmacy: [place] [id number], 1 caps Oral BID Start Date: 04/18/16 Status: Ordered Klor-Con M20 oral tablet, extended release See Instructions, TAKE ONE TABLET BY MOUTH ONCE DAILY, # 90 tabs, 1 Refill(s), eRx: [place] [id number], TAKE ONE TABLET BY MOUTH ONCE DAILY Start Date: 03/17/16 Status: Ordered levothyroxine 150 mcg (0.15 mg) oral tablet See Instructions, TAKE ONE TABLET BY MOUTH ONCE DAILY, # 90 tabs, 10 Refill(s), eRx: [place] [id number], TAKE ONE TABLET BY MOUTH ONCE DAILY Start Date: 09/03/15 Status: Ordered losartan 100 mg oral tablet See Instructions, TAKE ONE TABLET BY MOUTH ONCE DAILY, # 90 tabs, 1 Refill(s), eRx: [facility] [id number], TAKE ONE TABLET BY MOUTH ONCE DAILY Start Date: 07/30/16 Status: Ordered meloxicam 15 mg oral tablet See Instructions, TAKE ONE TABLET BY MOUTH ONCE DAILY, # 90 tabs, eRx: [facility] 2428, TAKE ONE TABLET BY MOUTH ONCE DAILY Start Date: 07/22/16 Status: Ordered multivitamin Daily, 0 Refill(s) Start Date: 06/07/14 Status: Ordered PARoxetine 20 mg oral tablet See Instructions, TAKE ONE TABLET BY MOUTH ONCE DAILY, # 90 tabs, 1 Refill(s), eRx: [facility] 2428, TAKE ONE TABLET BY MOUTH ONCE DAILY Start Date: 04/04/16 Status: Ordered pramipexole 0.25 mg oral tablet See Instructions, TAKE ONE TABLET BY MOUTH TWICE DAILY, # 180 tabs, 1 Refill(s) , eRx: [place] [id number], TAKE ONE TABLET BY MOUTH TWICE DAILY Start Date: 02/25/16 Status: Ordered prednisoLONE acetate ophthalmic 1 drops, Eye-Both, Daily, 0 Refill(s) Start Date: 01/30/16 Status: Ordered propranolol 120 mg oral capsule, extended release See Instructions, TAKE ONE CAPSULE BY MOUTH ONCE DAILY, # 90 caps, 1 Refill(s), eRx: [facility] 242, TAKE ONE CAPSULE BY MOUTH ONCE DAILY Start Date: 06/23/16 Status: Ordered triamcinolone 0.1% topical cream 1 nikolay, Topical, TID, # 30 g, 0 Refill(s), Pharmacy: [place] [id number] Start Date: 01/30/16 Status: Ordered Vitamin C [...] Diagnosis Body Site Arthrocentesis, aspiration and/or injection, 09/03/16 small joint or bursa (eg, fingers, toes); without ultrasound guidance Colonoscopy1, 2 08/30/10 Colon [...] Extracted from: Title: Office Visit Note Author: Peyman Martin MD Date: 09/03/16 Assessment/Plan Bilateral thumb pain The left thumb on x-ray hassignificant CMC arthritis. There is grade 3 CMC arthritis. I recommended an injection of his left thumb. We'll also give her a brace to wear. 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 There is no significant osteophytes. The patient was instructed todo some splinting of the IP joint on this right side for the next 4 weeks. Splint is much as possible. We'll give her an anti-inflammatory also to rub around the joint. Hopefully this will be helpful in decreasing the discomfort. I explained that injections at the IP joint much less effective than anthe larger joints of the hand. Injection: 40 mg Kenalog Technique: The basilar joint of theleft thumb was prepped with a chlorhexidine stick. Injection of 1 percent lidocaine with epinephrine was performed in a field block around the basilar joint on the radial side. This injection was taken down to the joint capsule. 5 mL of 1 percent lidocaine with epinephrine was utilized for the field block. This was allowed to sit for 5 minutes. Injection of 40 mg of Kenalog was directed into the joint. A Band-Aid was placed. Patient had full range of motion without any discomfort after the procedure. No signs of complications. Band-Aid placed. Ordered: Request for Therapies XR Finger Thumb Left XR Finger Thumb Right
--- OUTSIDE RECORDS SUMMARY | 2018-12-27 17:26 | XMS REPORT | Referral Summary ---
Author Author [facility] Organization [facility] Address Unknown Phone Unavailable Care Team Providers Care Children'S Attendant Name Role Phone Dago Bai PCP Encounter VC Date(s): 10/03/16 - 10/03/16 [facility] 1947 [facility] [place] [id number] Discharge Diagnosis: CMC arthritis, thumb, degenerative Discharge Disposition: 01-Home or Self Care Attending Physician: Peyman Martin MD Admitting Physician: Peyman Martin MD Vital Signs No data available for this section Problem List Condition Effective Dates Status Health [...] BEDTIME, # 180 tabs, 1 Refill(s), eRx: [id number], TAKE TWO TABLETS BY MOUTH ONCE DAILY AT BEDTIME Start Date: 07/01/16 Status: Ordered amLODIPine 2.5 mg oral tablet See Instructions, TAKE ONE TABLET BY MOUTH ONCE DAILY, # 90 tabs, 1 Refill(s), eRx: [facility] 2428, TAKE ONE TABLET BY MOUTH ONCE DAILY Start Date: 09/25/16 Status: Ordered butalbital/acetaminophen/caffeine 50 mg-325 mg-40 mg oral tablet See Instructions, TAKE ONE TABLET BY MOUTH EVERY 8 HOURS NEEDED FOR HEADACHE , # 90 tabs, eRx: [facility] 2428, TAKE ONE TABLET BY MOUTH EVERY 8 HOURS NEEDED FOR HEADACHE Start Date: 09/25/16 Status: Ordered chlorzoxazone 500 mg oral tablet See Instructions, TAKE ONE TABLET BY MOUTH THREE TIMES DAILY, # 200 tabs, eRx: [facility] 242, TAKE ONE TABLET BY MOUTH THREE TIMES DAILY Start Date: 05/23/16 Status: Ordered Citracal + D Oral, BID, 0 Refill(s) Start Date: 06/07/14 Status: Ordered Coreg 25 mg oral tablet 25 mg 1 tabs, Oral, BID, # 180 tabs, 3 Refill(s), Pharmacy: [place] [id number], 1 tabs Oral BID Start Date: 04/18/16 Status: Ordered furosemide 40 mg oral tablet See Instructions, TAKE ONE TABLET BY MOUTH ONCE DAILY, # 90 tabs, 1 Refill(s), eRx: [place] [id number], TAKE ONE TABLET BY MOUTH ONCE DAILY Start Date: 07/01/16 Status: Ordered gabapentin 300 mg oral capsule 300 mg 1 caps, Oral, BID, # 60 caps, 1 Refill(s), Pharmacy: [place] [id number], 1 caps Oral BID Start Date: 04/18/16 Status: Ordered Klor-Con M20 oral tablet, extended release See Instructions, TAKE ONE TABLET BY MOUTH ONCE DAILY, # 90 tabs, 1 Refill(s), eRx: [facility] 2428, TAKE ONE TABLET BY MOUTH ONCE DAILY Start Date: 09/25/16 Status: Ordered levothyroxine 150 mcg (0.15 mg) oral tablet See Instructions, TAKE ONE TABLET BY MOUTH ONCE DAILY, # 90 tabs, 2 Refill(s), eRx: [facility] 2428, TAKE ONE TABLET BY MOUTH ONCE DAILY Start Date: 09/25/16 Status: Ordered losartan 100 mg oral tablet See Instructions, TAKE ONE TABLET BY MOUTH ONCE DAILY, # 90 tabs, 1 Refill(s), eRx: [facility] 2428, TAKE ONE TABLET BY MOUTH ONCE DAILY Start Date: 07/30/16 Status: Ordered meloxicam 15 mg oral tablet See Instructions, TAKE ONE TABLET BY MOUTH ONCE DAILY, # 90 tabs, eRx: [facility] 2428, TAKE ONE TABLET BY MOUTH ONCE DAILY Start Date: 07/22/16 Status: Ordered multivitamin Daily, 0 Refill(s) Start Date: 06/07/14 Status: Ordered PARoxetine 20 mg oral tablet See Instructions, TAKE ONE TABLET BY MOUTH ONCE DAILY, # 90 tabs, 1 Refill(s), eRx: [facility] 2428, TAKE ONE TABLET BY MOUTH ONCE DAILY Start Date: 04/04/16 Status: Ordered pramipexole 0.25 mg oral tablet See Instructions, TAKE ONE TABLET BY MOUTH TWICE DAILY, # 180 tabs, 1 Refill(s) , eRx: [facility] 242, TAKE ONE TABLET BY MOUTH TWICE DAILY Start Date: 02/25/16 Status: Ordered prednisoLONE acetate ophthalmic 1 drops, Eye-Both, Daily, 0 Refill(s) Start Date: 01/30/16 Status: Ordered propranolol 120 mg oral capsule, extended release See Instructions, TAKE ONE CAPSULE BY MOUTH ONCE DAILY, # 90 caps, 1 Refill(s), eRx: [facility] 2428, TAKE ONE CAPSULE BY MOUTH ONCE DAILY Start Date: 06/23/16 Status: Ordered triamcinolone 0.1% topical cream 1 nikolay, Topical, TID, # 30 g, 0 Refill(s), Pharmacy: [place] [id number] Start Date: 01/30/16 Status: Ordered Vitamin C [...] Visit Note Author: Peyman Martin MD Date: 10/03/16 Assessment/Plan The patient was given theoptions of a repeat injection around 3 months after the previous one versus a possible surgical intervention. Did explain the trapezius to me andreconstruction of the ligament to the patient. The patient will consider these options. She will contact us if she wants to proceed with either. I once again told her that it has to be at least 3 months from the last injection prior to another injection of the left side. If she decides she wants an injection on the right just give us a call and we can get her scheduled.
--- OUTSIDE RECORDS SUMMARY | 2018-12-27 17:26 | XMS REPORT | Continuity of Care Document ---
Author Author [facility] Address Unknown Phone Unavailable Care Team Providers Care Marine Equipment Preservation Inspector Name Role Phone Dago Bai PP Unavailable Payers Payer name Insurance type Covered democrat ID Authorization(s) Unknown Problems Condition Effective Dates (start - stop) Clinical Status Cellulitis, face - *Acute Backache - *Acute Restless leg syndrome - Cellulitis - *Acute Upper Respiratory Infection, Acute - *Acute Hypertension, Unspecified - *Chronic Open wound of knee, leg (except thigh), and ankle, without mention of complication - Changing Hypergranulation - *Fair Control Open wound of knee, leg (except thigh), and ankle, without mention of complication - *Resolved Open wound of knee, leg (except thigh), and ankle, without mention of complication - *Acute Open wound of knee, leg (except thigh), and ankle, without mention of complication - *Chronic Unspecified disorder of skin and subcutaneous tissue - *Acute Bronchitis - *Acute Peripheral neuropathy - *Acute Influenza Vaccine - Impacted cerumen - Improved Open wound of knee, leg (except thigh), and ankle, without mention of complication - Healing Open wound of knee, leg (except thigh), and ankle, without mention of complication - *Acute Cellulitis - *Acute Hypertension, Unspecified - *Chronic Depression - *Chronic Tension headache - *Chronic Open wound of knee, leg (except thigh), and ankle, without mention of complication - *Acute ACQUIRED HYPOTHYROID NEC - TENSION HEADACHE - 311 - DEPRESSIVE DISORDER NEC - HYPERTENSION NOS - ALLERGIC RHINITIS NOS - Open wound of knee, leg (except thigh), and ankle, without mention of complication - Improved Backache - *Chronic Hypertension, Unspecified - *Chronic Other specified acquired hypothyroidism - *Chronic Depression - *Chronic Unspecified idiopathic peripheral neuropathy - *Chronic Open wound of knee, leg (except thigh), and ankle, without mention of complication - *Acute Open wound of knee, leg (except thigh), and ankle, without mention of complication - Improved Hypergranulation - New onset Open wound of knee, leg (except thigh), and ankle, without mention of complication - Healing Open wound of knee, leg (except thigh), and ankle, without mention of complication - Healing Open wound of knee, leg (except thigh), and ankle, without mention of complication - Healing Lower leg mass - *Acute Follow-up examination, following other surgery - *Acute Other cyst of bone, unspecified lower leg - *Acute Cellulitis - *Acute Open wound of knee, leg (except thigh), and ankle, without mention of complication - *Acute Cellulitis - *Acute Family History Family Member Diagnosis Age At Onset Status Sister (Unknown) Hypertension Yes Mother (Unknown) Cancer - throat Yes Sister (Unknown) Diabetes Yes Brother (Unknown) Hypertension Yes Father (Unknown) CAD Yes Social History Social History Element Description Quantity Unknown Allergies, Adverse Reactions, Alerts Substance Reaction Severity Status IODINE Unknown PREGABALIN Unknown CODEINE Unknown SULFA (SULFONAMIDE ANTIBIOTICS) Unknown LISINOPRIL Unknown ACETAMINOPHEN ILL FEELING Unknown HYDROCODONE BITARTRATE ILL FEELING Unknown Medications Medication Instructions Dosage Effective Dates (start - stop) Status betamethasone dipropionate 0.05 % topical cream APLLY THIN LAYER TO AFFECTED AREA TWICE A DAY NEEDED - Active Keflex 500 mg capsule take 1 capsule (500MG) by oral route every 8 hours 500 MG - No Longer Active Multiple Vitamins Daily tablet take 1 Tablet by Oral route every day 0 - Active VITAMIN C (unknown strength) daily - Active CALCIO [place] (unknown strength) take 1 Tablet by Oral route every day - Active Zyrtec 10 mg tablet take 1 tablet (10MG) by oral route every day as needed 10 MG - Active levothyroxine 150 mcg tablet Take 1 tablet by mouth every day. 2012 - Active furosemide 40 mg tablet Take 1 tablet by mouth every day. - Active Fioricet 50 mg-325 mg-40 mg tablet Take 1 tablet by mouth every 8 hours as needed. - Active Klor-Con M20 mEq tablet,extended release Take 1 tablet by mouth every day. - Active losartan 100 mg tablet Take 1 by mouth every day. - Active meloxicam 15 mg tablet Take 1 tablet by mouth every day. - Active Mirapex 0.25 mg tablet take 1 tablet (0.25MG) by oral route 2 times every day - Active Coreg 25 mg tablet Take 1 tablet by mouth twice a day. - Active Paxil 20 mg tablet Take 1 tablet by mouth every day. - Active Parafon Forte DSC 500 mg tablet take 1 tablet (500MG) by oral route 3 times every day prn 500 MG - Active tramadol 50 mg tablet take 1 tablet (50MG) by oral route every 6 hours as needed 50 MG - Active amlodipine 2.5 mg tablet Take 1 by mouth every day. - Active amitriptyline 25 mg tablet take 2 tablet by oral route every day at bedtime - Active Tessalon Perles 100 mg capsule take 1 - 2 Capsule (100MG) by oral route every 4 hours 100 MG - Active Immunizations Vaccine Date Status Comments Flu (split) (3 yrs or older) completed Flu (split) (3 yrs or older) completed pneumo (2 yrs or older) (PPV23) completed - Completed reason: source unspecified Results Test Name Date and Time Measure Units Reference Range Abnormal Flag Comments Unknown Vital Signs Date / Time: Height Weight Pulse Rate Blood Pressure Temperature /09:54:00 65.00 in 195.00 lbs 64 /min 150/88 mm[Hg] 97.4 F Procedures Procedure Date Unknown Encounters Encounter Location [facility] [place] [facility] Patient [facility] Patient [facility] Patient [facility] [place] [facility] [place] [facility] [place] [facility] [place] [facility] [place] [facility] [place] Patient [facility] [place] [facility] [place] [facility] New Patient [facility] [place] Patient Visit [facility] Patient [facility] [place] Patient [facility] [place] [facility] [place] [facility] [place] Patient [place] [facility] [place] Patient [place] [facility] [place] [facility] [place] [facility] [place] Patient [facility] New Patient Visit [facility] Patient Visit [facility] [place] Patient Visit [facility] Patient Visit [facility] Advance Directives Directive Effective Date Unknown
--- OUTSIDE RECORDS SUMMARY | 2018-12-27 17:27 | XMS REPORT | Continuity of Care Document ---
Author Author Renate MYRICK, FACS, M [facility] Ambulatory Address [address] [facility] [place] [address] Phone Care Team Providers Care On Air Announcer Name Role Phone Dago Bai PP Unavailable Payers Payer name Insurance type Covered republican ID Authorization(s) Unknown Problems Condition Effective Dates (start - stop) Clinical Status Open wound of knee, leg (except thigh), and ankle, without mention of complication - *Resolved Backache - *Acute Restless leg syndrome - Cellulitis - *Acute Cellulitis, face - *Acute Upper Respiratory Infection, Acute - [...] Dosage Effective Dates (start - stop) Status Multiple Vitamins Daily tablet take 1 Tablet [...] by mouth every day. 2012 - Active Fioricet 50 mg-325 mg-40 mg [...] route every day at bedtime - Active betamethasone dipropionate 0.05 % topical cream APLLY THIN LAYER TO AFFECTED AREA TWICE A DAY NEEDED - Active Tessalon Perles 100 mg capsule take 1 - 2 Capsule (100MG) by oral route every 4 hours 100 MG - Active furosemide 40 mg tablet Take 1 tablet by mouth every day. - Active Immunizations Vaccine Date Status Comments Flu (split) (3 yrs or older) completed Flu (split) (3 yrs or older) completed pneumo (2 yrs or older) (PPV23) completed - Completed reason: source unspecified Results Test Name Date and Time Measure Units Reference Range Abnormal Flag Comments Unknown Vital Signs Date / Time: Height Weight Pulse Rate Blood Pressure Temperature /11:22:00 65.00 in 193.00 lbs 96.2 F Procedures Procedure Date Unknown Encounters Encounter Location Date [facility] [place] [facility] Patient [facility] Patient [facility] Patient [facility] [place] [facility] [place] [facility] [place] [facility] [place] [facility] [place] [facility] [place] [facility] Patient [facility] [place] Patient Visit [facility] Patient [facility] [place] Patient [facility] Patient [facility] [place] [facility] [place] [facility] [place] [facility] [place] [facility] [place] [facility] [place] [facility] [place] [facility] Advance Directives Directive Effective Date Unknown
--- OUTSIDE RECORDS SUMMARY | 2018-12-27 17:27 | XMS REPORT | Continuity of Care Document ---
Author Author [facility] Address Unknown Phone Unavailable Care Team Providers Care Hog Grader Name Role Phone Dago Bai PP Unavailable Payers Payer name Insurance type Covered libertarian ID Authorization(s) Unknown Problems Condition Effective Dates (start - stop) Clinical Status Follow-up examination, following other surgery - *Acute ACQUIRED HYPOTHYROID NEC - TENSION HEADACHE - 311 - DEPRESSIVE DISORDER NEC - HYPERTENSION NOS - ALLERGIC RHINITIS NOS - Backache - *Acute Restless leg syndrome - Cellulitis - *Acute Open wound of knee, leg (except thigh), and ankle, without mention of complication - *Acute Open wound of knee, leg (except thigh), and ankle, without mention of complication - *Acute Unspecified disorder of skin and subcutaneous tissue - *Acute Bronchitis - *Acute Peripheral neuropathy - *Acute Influenza Vaccine - Impacted cerumen - Improved Open wound of knee, leg (except thigh), and ankle, without mention of complication - *Acute Cellulitis - *Acute Hypertension, Unspecified - *Chronic Depression - *Chronic Tension headache - *Chronic Backache - *Chronic Hypertension, Unspecified - *Chronic Other specified acquired hypothyroidism - *Chronic Depression - *Chronic Unspecified idiopathic peripheral neuropathy - *Chronic Lower leg mass - *Acute Other cyst of bone, unspecified [...] Adverse Reactions, Alerts Substance Reaction Severity Status ACETAMINOPHEN ILL FEELING Unknown HYDROCODONE BIT ILL FEELING Unknown IODINE Unknown PREGABALIN Unknown CODEINE Unknown SULFA (SULFONAMIDE ANTIBIOTICS) Unknown LISINOPRIL Unknown Medications Medication Instructions Dosage Effective Dates (start - stop) Status betamethasone dipropionate 0.05 % Topical Cream APLLY THIN LAYER TO AFFECTED AREA TWICE A DAY NEEDED - Active amlodipine 2.5 mg tablet Take 1 by mouth every day. - Active Multiple Vitamins Daily tablet take 1 [...] route 2 times every day - Active amitriptyline 25 mg tablet take 2 tablet by oral route every day at bedtime - Active Coreg 25 mg tablet Take [...] hours as needed 50 MG - Active Levaquin 500 mg tablet take 1 tablet (500MG) by oral route every 24 hours 500 MG - Active Immunizations Vaccine Date Status Comments Flu (split) (3 yrs or older) completed Flu (split) (3 yrs or older) completed pneumo (2 yrs or older) (PPV23) completed - Completed reason: source unspecified Results Test Name Date and Time Measure Units Reference Range Abnormal Flag Comments Unknown Vital Signs Date / Time: Height Weight Pulse Rate Blood Pressure Temperature /13:43:00 65.00 in 198.00 lbs 97.3 F Procedures Procedure Date Unknown Encounters Encounter Location Date Patient Visit [facility] Patient Visit [facility] Patient Visit [facility] Patient Visit [facility] Patient Visit [facility] Patient Visit [facility] Patient Visit [facility] Patient Visit [facility] Patient [facility] Patient Visit [facility] Patient Visit [facility] Patient Visit [facility] Patient Visit [facility] Patient Visit [facility] Patient Visit [facility] Patient Visit [facility] Patient Visit [facility] Patient Visit [facility] Patient Visit [facility] Patient Visit [facility] Patient Visit [facility] Patient Visit [facility] Patient Visit [facility] Advance Directives Directive Effective Date Unknown
--- OUTSIDE RECORDS SUMMARY | 2018-12-27 17:27 | XMS REPORT | Continuity of Care Document ---
Author Author Renate MYRICK, FACS, M [facility] Address [address] [facility] [place] [address] Phone Care Team Providers Care Tube Winder Name Role Phone Dago Bai PP Unavailable Payers Payer name Insurance type Covered republican ID Authorization(s) Unknown Problems Condition Effective Dates (start - stop) Clinical Status Open wound of knee, leg (except thigh), and ankle, without mention of complication - Improved Backache - *Acute Restless leg syndrome - Cellulitis - *Acute Cellulitis, face - *Acute Open wound of knee, leg [...] ankle, without mention of complication - Healing Cellulitis - *Acute Other cyst of bone, unspecified lower leg - *Acute Lower leg mass - *Acute ALLERGIC RHINITIS NOS - HYPERTENSION NOS - 311 - DEPRESSIVE DISORDER NEC - TENSION HEADACHE - ACQUIRED HYPOTHYROID NEC - Open wound of knee, leg (except thigh), and ankle, without mention of complication - *Acute Open wound of knee, leg (except thigh), and ankle, without mention of complication - *Acute Peripheral neuropathy - *Acute Bronchitis - *Acute Impacted cerumen - Improved Influenza Vaccine - Unspecified disorder of skin and subcutaneous tissue - *Acute Open wound of knee, leg (except thigh), and ankle, without mention of complication - *Chronic Open wound of knee, leg (except thigh), and ankle, without mention of complication - *Acute Cellulitis - *Acute Follow-up examination, following other surgery - *Acute Open wound of knee, leg (except thigh), and ankle, without mention of complication - Healing Unspecified idiopathic peripheral neuropathy - *Chronic Depression - *Chronic Other specified acquired hypothyroidism - *Chronic Hypertension, Unspecified - *Chronic Backache - *Chronic Tension headache - *Chronic Depression - *Chronic Hypertension, Unspecified - *Chronic Cellulitis - *Acute Open wound of knee, leg (except thigh), and ankle, without mention of complication - *Resolved Open wound of knee, leg (except thigh), and ankle, without mention of complication - Healing Open wound of knee, leg (except thigh), and ankle, without mention of complication - *Acute Family History Family Member Diagnosis Age At Onset Status Sister (Unknown) Hypertension Yes Mother (Unknown) Cancer - throat Yes Sister (Unknown) Diabetes Yes Brother (Unknown) Hypertension Yes Father (Unknown) CAD Yes Social History Social History Element Description Quantity Unknown Allergies, Adverse Reactions, Alerts Substance Reaction Severity Status IODINE Unknown ACETAMINOPHEN ILL FEELING Unknown HYDROCODONE BITARTRATE ILL FEELING Unknown PREGABALIN Unknown CODEINE Unknown SULFA (SULFONAMIDE [...] route every day at bedtime - Active Keflex 500 mg capsule take 1 capsule (500MG) by oral route every 8 hours 500 MG - Active betamethasone dipropionate 0.05 % topical cream APLLY THIN LAYER TO AFFECTED AREA TWICE A DAY NEEDED - Active Immunizations Vaccine Date Status Comments Flu (split) (3 yrs or older) completed Flu (split) (3 yrs or older) completed pneumo (2 yrs or older) (PPV23) completed - Completed reason: source unspecified Results Test Name Date and Time Measure Units Reference Range Abnormal Flag Comments Unknown Vital Signs Date / Time: Height Weight Pulse Rate Blood Pressure Temperature /11:41:00 65.00 in 193.00 lbs 95.9 F Procedures Procedure Date Unknown Encounters Encounter Location Date Patient [facility] Patient [facility] Patient Visit [facility] Patient [facility] Patient [facility] Patient [facility] Advance Directives Directive Effective Date Unknown
--- OUTSIDE RECORDS SUMMARY | 2018-12-27 17:28 | XMS REPORT | Continuity of Care Document ---
Author Author Juliette Rivas [facility] Address [address] [facility] [place] [address] Phone Care Team Providers Care Long Chain Beamer Name Role Phone Dago Bai PP Unavailable Payers Payer name Insurance type Covered democrat ID Authorization(s) Unknown Problems Condition Effective Dates (start - stop) Clinical Status Open wound of knee, leg (except thigh), and ankle, without mention of complication - Healing Backache - *Acute Restless leg syndrome - [...] Measure Units Reference Range Abnormal Flag Comments Panel Description: Wound Culture/Sensitivity-[facility] Aerobic Wound Culture 11:36:00 Source: Wound Collected: 12/27/13 11:36 Site: LEG LEFT Received : 12/27/13 14:57 Order#: [id number] is the Site? : LEGLAerobic Wound Culture PRELIM 12/28/13 10:37 Staphylococcus aureus Moderate amountKEY FOR RESULTS: * - NEW RESULT - RESULT WAS MODIFIED AFTER FINAL STATUS SETPerform at [facility] Reference Lab [address] [place] [address] Water Plant Operator Leandro Wilde MD Panel Description: Aerobic & Anaerobic Culture-[facility] Wound Culture (Aerobic and Anaerobic) 11:36:00 Source: Wound Collected: 12/27/13 11:36 Site: LEG LEFT Received : 12/27/13 14:57 Order#: [id number] Wound Culture PRELIM 12/29/13 08:42 Staphylococcus aureus Moderate amountAnaerobic Culture PENDINGKEY FOR RESULTS: * - NEW RESULT - RESULT WAS MODIFIED AFTER FINAL STATUS SETPerform at [address] [address] Water Plant Operator Leandro Wilde MD Panel Description: Aerobic & Anaerobic Culture-[facility] Wound Culture (Aerobic and Anaerobic) 11:36:00 Source: Wound Collected: 12/27/13 11:36 Site: LEG LEFT Received : 12/27/13 14:57 Order#: [id number] Wound Culture PRELIM 12/29/13 09:38 Staphylococcus aureus - Methicillin Resistant Moderate amount____ MRSA Antibiotic EDWIN INT Clindamycin >=8 R Erythromycin >=8 R Oxacillin >=4 R Tetracycline <=1 S Trimethoprim/Sulfa <=10 S Vancomycin <=0.5 S S=SUSCEPTIBLE I=INTERMEDIATE R=RESISTANT S-DD=SUSCEPTIBLE, DOSE DEPENDENT Anaerobic Culture PENDINGKEY FOR RESULTS: * - NEW RESULT - RESULT WAS MODIFIED AFTER FINAL STATUS SETPerform at [facility] Reference Lab [address] [facility] [address] Water Plant Operator Leandro Wilde MD Panel Description: Aerobic & Anaerobic Culture-[facility] Wound Culture (Aerobic and Anaerobic) 11:36:00 Source: Wound Collected: 12/27/13 11:36 Site: LEG LEFT Received : 12/27/13 14:57 Order#: [id number] Wound Culture FINAL 12/30/13 08:52 Staphylococcus aureus - Methicillin Resistant Moderate amount____ MRSA Antibiotic EDWIN INT Clindamycin >=8 R Erythromycin >=8 R Oxacillin >=4 R Tetracycline <=1 S Trimethoprim/Sulfa <=10 S Vancomycin <=0.5 S S=SUSCEPTIBLE I=INTERMEDIATE R=RESISTANT S-DD=SUSCEPTIBLE, DOSE DEPENDENT Anaerobic Culture PRELIM 12/30/13 08:52 No anaerobes [facility]: * - NEW RESULT - RESULT WAS MODIFIED AFTER FINAL STATUS SETPerform at [facility] Reference Lab [address] [facility] [address] Water Plant Operator Leandro Wilde MD Panel Description: Aerobic & Anaerobic Culture-[facility] Wound Culture (Aerobic and Anaerobic) 11:36:00 Source: Wound Collected: 12/27/13 11:36 Site: LEG LEFT Received : 12/27/13 14:57 Order#: [id number] Wound Culture FINAL 12/30/13 08:52 Staphylococcus aureus - Methicillin Resistant Moderate amount____ MRSA Antibiotic EDWIN INT Clindamycin >=8 R Erythromycin >=8 R Oxacillin >=4 R Tetracycline <=1 S Trimethoprim/Sulfa <=10 S Vancomycin <=0.5 S S=SUSCEPTIBLE I=INTERMEDIATE R=RESISTANT S-DD=SUSCEPTIBLE, DOSE DEPENDENT Anaerobic Culture FINAL 01/01/14 11:36 No anaerobes isolatedKEY FOR RESULTS: * - NEW RESULT - RESULT WAS MODIFIED AFTER FINAL STATUS SETPerform at [facility] [address] [facility] [address] Water Plant Operator Leandro Wilde MD Vital Signs Date / Time: Height Weight Pulse Rate Blood Pressure Temperature /10:57:00 65.00 in 194.00 lbs 96.0 F Procedures Procedure Date Unknown Encounters Encounter Location Date Patient Visit [facility] Patient Visit [facility] Patient [facility] Patient [facility] Patient [facility] Patient [facility] Patient Visit [facility] Patient [facility] Patient [facility] Patient [facility] Patient [facility] Patient [facility] Patient [facility] Patient [facility] Patient [facility] Advance Directives Directive Effective Date Unknown
--- OUTSIDE RECORDS SUMMARY | 2018-12-27 17:28 | XMS REPORT | Referral Summary ---
Author Organization Unknown Address Unknown Phone Unavailable Care Team Providers Care Pipe Covering Molder Name Role Phone Dago Bai PCP Encounter [facility] Date(s): 11/16/14 - 11/16/14 [address] [facility] [place], [address] [place] [address] Discharge Diagnosis: Depression Discharge Diagnosis: Hypothyroidism Discharge Diagnosis: Classic migraine Discharge Diagnosis: Generalized OA Discharge Diagnosis: Hypertension Discharge Disposition: Home or Self Care Attending Physician: Dago Bai MD Admitting Physician: Dago Bai MD Vital Signs Most recent to 1 oldest [Reference Range]: Peripheral Pulse 68 bpm Rate [60-100 bpm] (11/16/14 9:52 AM) Respiratory Rate 14 br/min [14-20 br/min] (11/16/14 9:52 AM) Blood Pressure 124/76 mmHg [90-140/60-90 mmHg] (11/16/14 9:52 AM) Problem List Condition Effective Dates Status [...] See Instructions, TAKE TWO TABLETS BY MOUTH AT BEDTIME, # 180 tabs, eRx: [id number], TAKE TWO TABLETS BY MOUTH AT BEDTIME Special Instructions: TAKE TWO TABLETS BY MOUTH AT BEDTIME Start Date: 09/01/14 Status: Ordered amLODIPine 2.5 mg oral tablet See Instructions, TAKE ONE TABLET BY MOUTH EVERY DAY, # 90 tabs, 3 Refill(s), eRx: [id number], TAKE ONE TABLET BY [...] BID, # 60 tabs, 10 Refill(s), Pharmacy: [place] [id number], 1 tabs Oral BID Start Date: 11/16/14 Status: Ordered Fioricet oral tablet 1 tabs, Oral, q8hr, as needed for headache, [facility], # 90 tabs, 0 Refill(s) Special Instructions: [facility] Start Date: 11/06/14 Stop Date: 11/06/15 Status: Ordered furosemide 40 mg oral tablet See Instructions, TAKE ONE TABLET BY MOUTH EVERY DAY, # 90 tabs, eRx: [place] [id number], TAKE ONE TABLET BY MOUTH EVERY DAY Special Instructions: TAKE ONE TABLET BY MOUTH EVERY DAY Start Date: 08/08/14 Status: Ordered Inderal LA 120 mg oral capsule, extended release 1 caps, Oral, Daily, # 90 caps, 3 Refill(s), Pharmacy: [place] [address], 1 caps Oral Daily Start Date: 11/16/14 Status: Ordered Klor-Con M20 oral tablet, extended release See Instructions, TAKE ONE TABLET BY MOUTH EVERY DAY., # 90 tabs, 1 Refill(s), eRx: [facility], TAKE ONE TABLET BY MOUTH EVERY DAY. Special Instructions: TAKE ONE TABLET BY MOUTH EVERY DAY. Start Date: 05/19/14 Status: Ordered levothyroxine 150 mcg (0.15 mg) oral tablet 1 tabs, Oral, Daily, # 90 tabs, 1 Refill(s), Pharmacy: [place] [id number], 1 tabs Oral Daily Start Date: 09/25/14 Status: Ordered losartan 100 mg oral tablet See Instructions, TAKE ONE TABLET BY MOUTH EVERY DAY, # 90 tabs, 3 Refill(s), Pharmacy: [facility], TAKE ONE TABLET BY MOUTH EVERY DAY Special Instructions: TAKE ONE TABLET BY MOUTH EVERY DAY Start Date: 11/16/14 Status: Ordered meloxicam 15 mg oral tablet See Instructions, TAKE ONE TABLET BY MOUTH EVERY DAY, # 90 tabs, 3 Refill(s), eRx: [facility], TAKE ONE TABLET BY MOUTH EVERY DAY Special Instructions: TAKE ONE TABLET BY MOUTH EVERY DAY Start Date: 09/18/14 Status: Ordered multivitamin Daily, 0 Refill(s) Start Date: 06/07/14 Status: Ordered PARoxetine 20 mg oral tablet See Instructions, TAKE ONE TABLET BY MOUTH EVERY DAY, # 90 tabs, 4 Refill(s), eRx: [facility], TAKE ONE TABLET BY MOUTH EVERY DAY Special Instructions: TAKE ONE TABLET BY MOUTH EVERY DAY Start Date: 09/18/14 Status: Ordered pramipexole 0.25 mg oral tablet 1 tabs, Oral, BID, # 180 tabs, 3 Refill(s), Pharmacy: [facility], 1 tabs Oral BID Start Date: 11/16/14 Status: Ordered propranolol 80 mg oral capsule, extended release 1 caps, Oral, Daily, # 30 caps, 3 Refill(s), Pharmacy: [facility], 1 caps Oral Daily Start Date: 06/07/14 Status: Ordered Vitamin C with Carole Hips [...] Social History Type Response Smoking Status Never smoker; Tobacco use per day: 1 Pack Assessment and Plan Extracted from: Title: Ambulatory [...] Released: 10/12/2006 Document Revised: 01/03/2013 [facility] BYOM!. No follow up information was provided. Extracted from: Title: Office Visit Note Author: Dago Bai MD Date: 11/16/14 Assessment/Plan Classic migraine Overall these have been improved on the propranolol. Refills were given. She has been on Paxil primarily for migraine prophylaxis would like to see how she does off of it. We'll have her go every other day for a couple weeks and if the headaches don't worsen she can stop it at that time. Ordered: Office Visit Level 4 Est 76998 Generalized OA She may continue use intermittent Tylenol or ibuprofen if she 's been doing. Ordered: Office Visit Level 4 Est 72738 Hypertension Blood pressure is adequately controlled. Refills given on losartan and Coreg. Follow-up in 3 months. Ordered: Office Visit Level 4 Est 01421 Hypothyroidism Stable no change in current treatment. Ordered: Office Visit Level 4 Est 11375 Orders: carvedilol, 1 tabs, Oral, BID, # 60 tabs, 10 Refill(s), Pharmacy: [facility], 1 tabs Oral BID losartan, See Instructions, TAKE ONE TABLET BY MOUTH EVERY DAY, # 90 tabs, 3 Refill(s), Pharmacy: [facility], TAKE ONE TABLET BY MOUTH EVERY DAY pramipexole, 1 tabs, Oral, BID, # 180 tabs, 3 Refill(s), Pharmacy: [facility], 1 tabs Oral BID propranolol, 1 caps, Oral, Daily, # 90 caps, 3 Refill(s), Pharmacy: [facility], 1 caps Oral Daily
--- OUTSIDE RECORDS SUMMARY | 2018-12-27 17:28 | XMS REPORT | Continuity of Care Document ---
Author Author Linda Joyner Ambulatory Address Unknown Phone Unavailable Care Team Providers Care Production Inspector Name Role Phone Dago Bai PP Unavailable Payers Payer name Insurance type Covered green party ID Authorization(s) Unknown Problems Condition Effective Dates (start - stop) Clinical Status Open wound of knee, leg (except thigh), and ankle, without mention of complication - Changing Hypergranulation - *Fair Control Backache - *Acute Restless leg syndrome - [...] Height Weight Pulse Rate Blood Pressure Temperature /15:11:00 65.00 in 193.00 lbs 96.7 F Procedures Procedure Date Unknown Encounters Encounter Location Date Patient Visit [facility] Patient Visit [facility] Patient Visit [facility] Patient Visit [facility] Patient Visit [facility] Patient [facility] Patient [facility] Patient [facility] Patient Visit [facility] Patient Visit [facility] Patient Visit [facility] Patient Visit [facility] Patient Visit [facility] Patient Visit [facility] Patient Visit [facility] Patient Visit [facility] Patient Visit [facility] Patient Visit [facility] Patient Visit [facility] Patient Visit [facility] Patient Visit [facility] Patient Visit [facility] Patient Visit [facility] Patient [facility] Patient [facility] Patient [facility] Patient [facility] Patient Visit [facility] Patient Visit [facility] Patient Visit [facility] Patient Visit [facility] Patient Visit [facility] Advance Directives Directive Effective Date Unknown
--- OUTSIDE RECORDS SUMMARY | 2018-12-27 17:29 | XMS REPORT | Continuity of Care Document ---
Author Author Linda Joyner Ambulatory Address Unknown Phone Unavailable Care Team Providers Care Healthcare Representative Name Role Phone Dago Bai PP Unavailable [...] Height Weight Pulse Rate Blood Pressure Temperature /09:48:00 65.00 in 193.00 lbs 98.4 F Procedures Procedure Date Unknown Encounters Encounter Location Date Patient Visit [facility] Patient Visit [facility] Patient Visit [facility] Patient Visit [facility] Patient [facility] Patient [facility] Patient [facility] Patient [facility] Patient Visit [facility] Patient Visit [facility] Patient Visit [facility] Advance Directives Directive Effective Date Unknown
--- OUTSIDE RECORDS SUMMARY | 2018-12-27 17:29 | XMS REPORT | Continuity of Care Document ---
Author Author Virgie Iqbal [facility] Ambulatory Address [address] [place] [address] Phone Unavailable Care Team Providers Care Real Estate Representative Name Role Phone Dago Bai PP Unavailable Payers Payer name Insurance type Covered green party ID Authorization(s) Unknown Problems Condition Effective Dates (start - stop) Clinical Status Cellulitis - *Acute ACQUIRED HYPOTHYROID NEC - TENSION [...] ankle, without mention of complication - *Acute Lower leg mass - *Acute Follow-up examination, following other surgery - *Acute Other cyst of bone, unspecified lower leg - *Acute Open wound of knee, leg [...] Dosage Effective Dates (start - stop) Status cephalexin 500 mg capsule take 1 capsule (500MG) by oral route 3 times every day for 10 days 500 MG - No Longer Active betamethasone dipropionate 0.05 % Topical Cream APLLY THIN LAYER TO AFFECTED AREA TWICE A DAY NEEDED - Active Multiple Vitamins Daily tablet take [...] every 24 hours 500 MG - Active amlodipine 2.5 mg tablet Take 1 by mouth every day. - Active Immunizations Vaccine Date Status Comments Flu (split) (3 yrs or older) completed Flu (split) (3 yrs or older) completed pneumo (2 yrs or older) (PPV23) completed - Completed reason: source unspecified Results Test Name Date and Time Measure Units Reference Range Abnormal Flag Comments Unknown Vital Signs Date / Time: Height Weight Pulse Rate Blood Pressure Temperature /10:22:00 65.00 in 200.60 lbs 72 /min 172/80 mm[Hg] 97.0 F Procedures Procedure Date Unknown Encounters Encounter Location Date Patient Visit [facility] Patient Visit [facility] Patient Visit [facility] Patient Visit [facility] Patient Visit [facility] Patient Visit [facility] Patient Visit [facility] Patient Visit [facility] Patient Visit [facility] Patient Visit [facility] Patient Visit [facility] Patient Visit [facility] Patient Visit [facility] Patient Visit [facility] Patient [facility] Patient Visit [facility] Patient Visit [facility] Patient Visit [facility] Patient [facility] Patient [facility] Patient Visit [facility] Patient Visit [facility] New Surg Patient Visit [facility] Patient Visit [facility] Advance Directives Directive Effective Date Unknown
--- OUTSIDE RECORDS SUMMARY | 2018-12-27 17:29 | XMS REPORT | Continuity of Care Document ---
Author Author Linda Joyner Ambulatory Address Unknown Phone Unavailable Care Team Providers Care Filters Assembler Name Role Phone Dago Bai PP Unavailable [...] route every day at bedtime - Active Immunizations Vaccine Date Status Comments Flu (split) (3 yrs or older) completed Flu (split) (3 yrs or older) completed pneumo (2 yrs or older) (PPV23) completed - Completed reason: source unspecified Results Test Name Date and Time Measure Units Reference Range Abnormal Flag Comments Unknown Vital Signs Date / Time: Height Weight Pulse Rate Blood Pressure Temperature /:16:00 65.00 in 193.00 lbs 96.3 F Procedures Procedure Date Unknown Encounters Encounter Location Date Patient Visit [facility] Patient Visit [facility] Patient Visit [facility] Patient Visit [facility] Patient Visit [facility] Patient Visit [facility] Patient Visit [facility] Patient Visit [facility] Patient Visit [facility] S[facility] Patient Visit [facility] Patient Visit [facility] Patient Visit [facility] Patient Visit [facility] Patient [facility] Patient [facility] Patient [facility] Patient Visit [facility] Patient [facility] Patient [facility] Patient [facility] Patient [facility] New Surg Patient Visit [facility] New Surg Patient Visit [facility] Patient Visit [facility] Patient Visit [facility] Surg Patient Visit [facility] Patient Visit [facility] Advance Directives Directive Effective Date Unknown
--- OUTSIDE RECORDS SUMMARY | 2018-12-27 17:29 | XMS REPORT | Continuity of Care Document ---
Author Author Linda Joyner Ambulatory Address Unknown Phone Unavailable Care Team Providers Care Ammonium Sulfate Operator Name Role Phone Dago Bai PP Unavailable [...] Height Weight Pulse Rate Blood Pressure Temperature /11:05:00 65.00 in 194.00 lbs 97.9 F Procedures Procedure Date Unknown Encounters Encounter Location Date Patient Visit [facility] Patient [facility] Patient [facility] Patient [facility] Advance Directives Directive Effective Date Unknown
--- OUTSIDE RECORDS SUMMARY | 2018-12-27 17:30 | XMS REPORT | Continuity of Care Document ---
Author Author Kwame Bai MD Ambulatory Address [address] [facility] [place] [id number] Phone Care Team Providers Care Assembler Clip On Sunglasses Name Role Phone Dago Bai PP Unavailable Payers Payer name Insurance type Covered democrat ID Authorization(s) Unknown Problems Condition Effective Dates (start - stop) Clinical Status Upper Respiratory Infection, Acute - *Acute Hypertension, Unspecified - *Chronic Backache - *Acute Restless leg syndrome - [...] Dosage Effective Dates (start - stop) Status Ruy Ordoñezes 100 mg capsule take 1 - 2 Capsule (100MG) by oral route every 4 hours 100 MG - Active Multiple Vitamins Daily tablet take [...] route 2 times every day - Active Paxil 20 mg tablet Take [...] AREA TWICE A DAY NEEDED - Active furosemide 40 mg tablet Take 1 tablet by mouth every day. - Active Coreg 25 mg tablet Take 1 tablet by mouth twice a day. - Active Immunizations Vaccine Date Status Comments Flu (split) (3 yrs or older) completed Flu (split) (3 yrs or older) completed pneumo (2 yrs or older) ([id number]) completed - Completed reason: source unspecified Results Test Name Date and Time Measure Units Reference Range Abnormal Flag Comments Unknown Vital Signs Date / Time: Height Weight Pulse Rate Blood Pressure Temperature /14:27:00 65.00 in 190.00 lbs 84 /min 160/88 mm[Hg] 97.8 F Procedures Procedure Date Unknown Encounters [facility] Patient Visit [facility] Patient [facility] Advance Directives Directive Effective [facility] Unknown
--- OUTSIDE RECORDS SUMMARY | 2018-12-27 17:30 | XMS REPORT | Continuity of Care Document ---
Author Author [facility] Organization [facility] Address Unknown Phone Unavailable Allergies Active Description Code Type Severity Reaction Onset Reported/Identified Relationship to Patient Clinical Status Yes acetaminophen NKMA N/A ILL FEELING 02/22/2014 Yes codeine NKMA N/A N /A 02/22/2014 Yes HYDROcodone NKMA N/A ILL FEELING 02/22/2014 Yes iodine NKMA N/A N/ A 02/22/2014 Yes lisinopril NKMA N/A N/A 02/22/2014 Yes pregabalin NKMA N/A N/A 02/22/2014 Yes sulfamethoxazole NKMA N/A N/A 02/22/2014 Yes codeine Drug Allergy Unknown HIVES, THROAT CLOSES 05/02/2016 Yes Gadolinium-Containing Contrast Media Drug Allergy Unknown HIVES 2015 Yes lisinopril Drug Allergy Unknown CHRONIC COUGH 05/02/2016 Yes LORTAB Drug Allergy Unknown ITCHY, SKIN CRAWLING SENSATION 05/02/2016 Yes Lyrica Drug Allergy Unknown FEELS WEIRD 05/02/2016 Yes Sulfa (Sulfonamide Antibiotics) Drug Allergy Unknown HIVES, THROAT CLOSES 05/02/2016 Medications Medication Packaging Start Date Stop Date Route Dosage Sig chlorzoxazone(chlorzoxazone 500 mg oral tablet) 06/07/2014 09/07/2014 See Instructions, TAKE ONE TABLET BY MOUTH THREE TIMES DAILY NEEDED, 200 tabs propranolol(propranolol 80 mg oral capsule, extended release) 1 caps 06/07/2014 01/31/2015 Oral 80 mg 1 caps, Oral, Daily, 30 caps carvedilol(Coreg 25 mg oral tablet) 1 tabs 06/07/2014 11/16/2014 Oral 25 mg 1 tabs, Oral, BID, 180 tabs levothyroxine(levothyroxine 150 mcg (0.15 mg) oral tablet) 1 tabs 06/07/2014 09/25/2014 Oral 150 mcg 1 tabs, Oral, Daily, 90 tabs furosemide(Lasix 40 mg oral tablet) 1 tabs 06/07/2014 08/08/2014 Oral 40 mg 1 tabs, Oral, Daily, 90 tabs meloxicam(meloxicam 15 mg oral tablet) 1 tabs 06/07/2014 06/20/2014 Oral 15 mg 1 tabs, Oral, Daily, 90 tabs butalbital/acetaminophen/caffeine(Fioricet oral tablet) 1 tabs 06/07/2014 11/06/2014 Oral 1 tabs, Oral, TID, PRN: as needed for headache PARoxetine(Paxil 20 mg oral tablet) 1 tabs 06/07/2014 09/18/2014 Oral 20 mg 1 tabs, Oral, Daily, 90 tabs methocarbamol(Robaxin-750 oral tablet) 1 tabs 06/07/2014 11/16/2014 Oral 750 mg 1 tabs, Oral, TID amitriptyline(amitriptyline 25 mg oral tablet) 1 tabs 06/07/2014 09/01/2014 Oral 25 mg 1 tabs, Oral, Bedtime (once a day) amLODIPine(amLODIPine 2.5 mg oral tablet) 1 tabs 06/07/2014 09/18/2014 Oral 2.5 mg 1 tabs, Oral, Daily, 90 tabs multivitamin(multivitamin) 2013 Daily meloxicam(meloxicam 15 mg oral tablet) 06/20/2014 09/18/2014 See Instructions, TAKE ONE TABLET BY MOUTH EVERY DAY, 90 tabs propranolol(Inderal LA 120 mg oral capsule, extended release) 1 caps 07/10/2014 11/16/2014 Oral 120 mg 1 caps, Oral, Daily, 30 caps butalbital/acetaminophen/caffeine(Fioricet oral tablet) 1 tabs 11/06/2014 03/15/2015 Oral 1 tabs, Oral, q8hr, [facility], PRN: as needed for headache, 90 tabs, 0 Refill(s) losartan(losartan 100 mg oral tablet) 11/16/2014 01/21/2016 See Instructions, TAKE ONE TABLET BY MOUTH EVERY DAY, 90 tabs carvedilol(Coreg 25 mg oral tablet) 1 tabs 11/16/2014 11/05/2015 Oral 25 mg 25 mg=1 tabs, Oral, BID, 60 tabs, 10 Refill(s) propranolol(Inderal LA 120 mg oral capsule, extended release) 1 caps 11/16/2014 12/19/2015 Oral 120 mg 1 caps, Oral, Daily, 90 caps pramipexole(pramipexole 0.25 mg oral tablet) 1 tabs 11/16/2014 02/25/2016 Oral 0.25 mg 1 tabs, Oral, BID, 180 tabs chlorzoxazone(chlorzoxazone 500 mg oral tablet) tabs 11/16/2014 11/12/2015 Oral mg tabs, Oral, TID potassium chloride(Klor-Con M20 oral tablet, extended release) 1 tabs 11/28/2014 03/17/2016 Oral 20 mEq 1 tabs, Oral, Daily, 90 tabs furosemide(furosemide 40 mg oral tablet) 1 tabs 11/28/2014 12/24/2015 Oral 40 mg 1 tabs, Oral, Daily, 90 tabs amitriptyline(amitriptyline 25 mg oral tablet) 2 tabs 11/28/2014 12/24/2015 Oral 50 mg 2 tabs, Oral, Bedtime (once a day), 180 tabs butalbital/acetaminophen/caffeine(Fioricet oral tablet) 1 tabs 08/15/2015 09/25/2016 Oral 1 tabs, Oral, q8hr, [facility], PRN: as needed for headache, 90 tabs, 0 Refill(s) influenza virus vaccine, inactivated(influenza virus vaccine) 0.5 mL 08/15/2015 08/15/2015 IntraMuscular 0.5 mL, IntraMuscular, Once influenza virus vaccine, inactivated(influenza virus vaccine, inactivated) 0.5 mL 08/15/20152014 IntraMuscular 0.5 mL, IntraMuscular, Once amoxicillin(amoxicillin 875 mg oral tablet) 1 tabs 10/16/2015 10/26/2015 Oral 875 mg 875 mg=1 tabs, Oral, BID, for 10 days, 20 tabs, 0 Refill(s) propranolol(propranolol 120 mg oral capsule, extended release) 12/19/2015 See Instructions, TAKE ONE CAPSULE BY MOUTH ONCE DAILY , 90 caps, 1 Refill(s) amitriptyline(amitriptyline 25 mg oral tablet) 12/24/2015 See Instructions, TAKE TWO TABLETS BY MOUTH ONCE DAILY AT BEDTIME, 180 tabs, 1 Refill(s) furosemide(furosemide 40 mg oral tablet) 12/24/2015 See Instructions, TAKE ONE TABLET BY MOUTH ONCE DAILY, 90 tabs, 1 Refill(s) triamcinolone topical(triamcinolone 0.1% topical cream) 1 nikolay 01/30/2016 Topical 1 nikolay, Topical, TID, 30 g, 0 Refill(s) pramipexole(pramipexole 0.25 mg oral tablet) 02/25/2016 11/11/2016 See Instructions, TAKE ONE TABLET BY MOUTH TWICE DAILY, 180 tabs , 1 Refill(s) potassium chloride(Klor-Con M20 oral tablet, extended release) 03/17/2016 See Instructions, TAKE ONE TABLET BY MOUTH ONCE DAILY, 90 tabs, 1 Refill(s) potassium chloride(Klor-Con M20 oral tablet, extended release) 03/17/2016 09/25/2016 See Instructions, TAKE ONE TABLET BY MOUTH ONCE DAILY, 90 tabs, 1 Refill(s) gabapentin(gabapentin 300 mg oral capsule) 1 caps 04/18/2016 05/11/2017 Oral 300 mg 300 mg=1 caps, Oral, BID, 60 caps, 1 Refill(s) carvedilol(Coreg 25 mg oral tablet) 1 tabs 04/18/2016 05/06/2017 Oral 25 mg 25 mg=1 tabs, Oral, BID, 180 tabs, 3 Refill(s) triamcinolone(triamcinolone acetonide 40 mg/mL injectable suspension) 04/18/2016 04/18/2016 IntraMuscular 1 cc, IntraMuscular , Once Fioricet 50 mg-300 mg-40 mg capsule Capsule 05/02/2016 50-300-40 mg take 1 (one) Capsule by Oral route three times per day as needed Citracal + D Slow Release 600 mg calcium-500 unit tablet, ext.release 05/02/2016 05/02/2016 600 mg calcium- 500 unit 1 (one) by Oral route daily Vitamin C 1,000 mg tablet 201505/02/2016 1,000 mg take 1 (one) Tablet by Oral route daily chlorzoxazone 500 mg tablet Tablet 05/02/2016 500 mg take 1 (one) Tablet by Oral route daily ZyrTEC 10 mg tablet 05/02/2016 05/02/2016 10 mg take 1 (one) Tablet by Oral route daily amitriptyline 25 mg tablet 2015 25 mg take 1 ( one) Tablet by Oral route daily levothyroxine 150 mcg tablet 05/201605/02/2016 150 mcg 1 (one) by Oral route daily pramipexole 0.25 mg tablet Tablet 05/02/2016 0.25 mg take 1 (one) Tablet by Oral route two times per day Klor-Con M10 mEq tablet,extended release 05/02/2016 10 mEq 1 (one) by Oral route daily propranolol ER 120 mg capsule,24 hr,extended release 05/02/2016 120 mg take 1 (one) by Oral route daily triamcinolone acetonide 0.1 % topical cream 05/02/2016 0.1 % 1 (one) by Topical route three times per day gabapentin 300 mg capsule Capsule 05/02/2016 300 mg take 1 (one) Capsule by Oral route two times per day as needed meloxicam 15 mg tablet 201505/02/2016 15 mg take 1 (one) Tablet by Oral route daily PARoxetine 20 mg tablet 201505/02/2016 20 mg take 1 (one) Tablet by Oral route daily furosemide 40 mg tablet 201505/02/2016 40 mg take 1 (one) Tablet by Oral route daily losartan 100 mg tablet 201505/02/2016 100 mg take 1 (one) Tablet by Oral route daily amLODIPine 2.5 mg tablet 2015 2.5 mg take 1 ( one) Tablet by Oral route daily Coreg 25 mg tablet Tablet 2015 25 mg take 1 ( one) Tablet by Oral route daily propranolol(propranolol 120 mg oral capsule, extended release) 06/23/2016 12/31/2016 See Instructions, TAKE ONE CAPSULE BY MOUTH ONCE DAILY, 90 caps, 1 Refill(s) amitriptyline(amitriptyline 25 mg oral tablet) 07/01/2016 12/31/2016 See Instructions, TAKE TWO TABLETS BY MOUTH ONCE DAILY AT BEDTIME, 180 tabs, 1 Refill(s) furosemide(furosemide 40 mg oral tablet) 07/01/2016 02/13/2017 See Instructions, TAKE ONE TABLET BY MOUTH ONCE DAILY, 90 tabs, 1 Refill(s) triamcinolone(triamcinolone acetonide 40 mg/mL injectable suspension) 09/09/2016 09/09/2016 IntraARTICULAR 40 mg 40 mg, IntraARTICULAR, Once levothyroxine(levothyroxine 150 mcg (0.15 mg) oral tablet) 09/25/2016 See Instructions, TAKE ONE TABLET BY MOUTH ONCE DAILY, 90 tabs, 2 Refill(s) amLODIPine(amLODIPine 2.5 mg oral tablet) 09/25/2016 03/30/2017 See Instructions, TAKE ONE TABLET BY MOUTH ONCE DAILY, 90 tabs, 1 Refill(s) butalbital/acetaminophen/caffeine(butalbital/acetaminophen/ caffeine 50 mg-325 mg-40 mg oral tablet) 09/2505/11/2017 See Instructions, TAKE ONE TABLET BY MOUTH EVERY 8 HOURS NEEDED FOR HEADACHE , 90 tabs potassium chloride(Klor-Con M20 oral tablet, extended release) 09/25/2016 See Instructions, TAKE ONE TABLET BY MOUTH ONCE DAILY, 90 tabs, 1 Refill(s) amitriptyline(amitriptyline 25 mg oral tablet) 12/31/2016 See Instructions, TAKE TWO TABLETS BY MOUTH ONCE DAILY AT BEDTIME, 180 tabs, 2 Refill(s) propranolol(propranolol 120 mg oral capsule, extended release) 12/31/2016 05/06/2017 See Instructions, TAKE ONE CAPSULE BY MOUTH ONCE DAILY, 90 caps, 1 Refill(s) furosemide(furosemide 40 mg oral tablet) 02/13/2017 See Instructions, TAKE ONE TABLET BY MOUTH ONCE DAILY, 90 tabs, 2 Refill(s) meloxicam(meloxicam 15 mg oral tablet) 02/13/2017 04/07/2017 See Instructions, TAKE ONE TABLET BY MOUTH ONCE DAILY, 90 tabs ocular lubricant(Tears Naturale) drops 04/07/2017 Eye-Both drops, Eye-Both, BID, PRN: as needed for dry eyes, 0 Refill(s) meloxicam(meloxicam 15 mg oral tablet) 04/07/2017 05/11/2017 See Instructions, TAKE ONE HALF TABLET BY MOUTH ONCE DAILY, 90 tabs, 0 Refill(s) Problems Date Dx Coded Attending Type Code Diagnosis Diagnosed By 04/18/2016 Dago Bai Final E66.3 Overweight 04/18/2016 Dago Bai Final F33.0 Major depressive disorder, recurrent, mild 04/18/2016 Dago Bai Final H91.90 Unspecified hearing loss, unspecified ear 04/18/2016 Dago Bai Final I10 Essential (primary) hypertension 04/18/2016 Dago Bai Final J30.1 Allergic rhinitis due to pollen 04/18/2016 Dago Bai Final M15.9 Polyosteoarthritis, unspecified 05/07/2016 NICKO MYRICK, BARBARA C H90.3 Sensorineural hearing loss, bilateral NICKO MYRICK, BARBARA C 05/07/2016 BUNPAUL MYRICK, BARBARA C H90.3 Sensorineural hearing loss, bilateral NIDIA STEPHEN V 05/09/2016 NICKO MYRICK, BARBARA C H90.3 Sensorineural hearing loss, bilateral KEVINAKIKO VEGA O 05/28/2016 NICKO MYRICK, BARBARA C H90.3 Sensorineural hearing loss, bilateral VAMSI STEVENSON L 06/23/2016 NICKO MYRICK, BARBARA C H90.3 Sensorineural hearing loss, bilateral NICKO MYRICK, BARBARA C 07/22/2016 BUNPAUL MYRICK, BARBARA C H90.3 Sensorineural hearing loss, bilateral BUNPAUL MYRICK, BARBARA C 08/01/2016 Dago Bai Final E03.9 Hypothyroidism, unspecified 08/01/2016 Dago Bai Final F33.0 Major depressive disorder, recurrent, mild 08/01/2016 Dago Bai I10 Essential (primary) hypertension 08/01/2016 Dago Bai Final M15.9 Polyosteoarthritis, unspecified 08/01/2016 Dago Bai Final J30.1 Allergic rhinitis due to pollen 08/15/2016 NICKO MYRICK BARBARA C H90.3 Sensorineural hearing loss, bilateral NICKO MYRICK, BARBARA C 09/03/2016 Peyman Martin Final M18.9 Osteoarthritis of first carpometacarpal joint, unspecified 10/03/2016 Peyman Martin Final M18.9 Osteoarthritis of first carpometacarpal joint, unspecified 12/23/2016 NICKO MYRICK, BARBARA C H90.3 Sensorineural hearing loss, bilateral EDDELBUTTEL, YULISA 12/25/2016 Sarah Cross Final M25.551 Pain in right hip 12/25/2016 Sarah Cross Final M70.61 Trochanteric bursitis, right hip 02/05/2017 Dago Bai Final F33.0 Major depressive disorder, recurrent, mild 02/05/2017 Dago Bai Final I10 Essential (primary) hypertension 02/05/2017 Dago Bai Final J30.1 Allergic rhinitis due to pollen 02/05/2017 Dago Bai Final M15.9 Polyosteoarthritis, unspecified 02/05/2017 Dago Bai Final E03.8 Other specified hypothyroidism 02/05/2017 Dago Bai R73.09 Other abnormal glucose 03/27/2017 Dago Bai E03.8 Other specified hypothyroidism 03/27/2017 Dago Bai I10 Essential (primary) hypertension 03/27/2017 Dago Bai R60.9 Edema, unspecified 03/27/2017 Dago Bai M15.9 Polyosteoarthritis, unspecified 04/07/2017 Sarah Cross M15.9 Polyosteoarthritis, unspecified 04/07/2017 Sarah Cross R60.9 Edema, unspecified 04/16/2017 Dago Bai Final I10 Essential (primary) hypertension 04/16/2017 Dago Bai R60.9 Edema, unspecified 04/24/2017 BARBARA MAHARAJ MD H90.3 Sensorineural hearing loss, bilateral VAMSI STEVENSON L 08/25/2017 BARBARA MAHARAJ MD H90.3 Sensorineural hearing loss, bilateral GARIMA STEVENSONER L Procedures Code Description [place] [address] Therapeutic, prophylactic, or diagnostic injection (specify substance or drug); subcutaneous or intramuscular 04/18/2016 33946 Office or other outpatient visit for the evaluation and management of an established patient, which requires at least 2 of these 3 orellana components: A detailed history; A detailed examination; Medical d 04/18/2016 J3301 TRIAMCINOLONE ACET INJ N 04/18/2016 15105 COMPREHENSIVE AUDIOMETRY THRESHOLD EVAL & SPEECH RECOGNITION STEPHEN JACOB V 05/07/2016 32942 Office or other outpatient visit for the evaluation and management of a new patient, which requires BARBARA MAHARAJ MD 05/07/2016 V5140 HEARING AID AKIKO FITZPATRICK 05/09/2016 V5140 HEARING AID BIN MARIANE KEVINAKIKO DEL RIO O 05/23/2016 M505 TRIAL CHECK UP VAMSI STEVENSON 05/28/2016 M700 CASAS ADJUSTMENT/PROBLEM ELVA YAOMARI Vela 05/28/2016 87259 COMPREHENSIVE AUDIOMETRY THRESHOLD EVAL & SPEECH RECOGNITION STEPHEN JACOB V 06/03/2016 25026 Office or other outpatient visit for the evaluation and management of a new patient, which requires BARBARA MAHARAJ MD 06/03/2016 M505 TRIAL CHECK UP BARBARA MAHARAJ MD 06/23/2016 M505 TRIAL CHECK UP BARBARA MAHARAJ MD 07/22/2016 M510 VERIFIT BARBARA MAHARAJ MD 07/22/2016 59922 Pneumococcal conjugate vaccine, 13 valent (PCV13), for intramuscular use 08/01/2016 10711 Office or other outpatient visit for the evaluation and management of an established patient, which requires at least 2 of these 3 orellana components: A detailed history; A detailed examination; Medical d 08/01/2016 M505 TRIAL CHECK UP BARBARA MAHARAJ MD 08/15/2016 89874 Arthrocentesis, aspiration and/or injection, small joint or bursa (eg, fingers, toes); without ultrasound guidance 09/03/2016 62202 Radiologic examination, finger(s), minimum of 2 views 09/03/2016 40974 Office or other outpatient visit for the evaluation and management of a new patient, which requires these 3 orellana components: A detailed history; A detailed examination; Medical decision making of low c 09/03/2016 J3301 TRIAMCINOLONE ACET INJ N 09/03/2016 75136 Office or other outpatient visit for the evaluation and management of an established patient, which requires at least 2 of these 3 orellana components: A problem focused history; A problem focused examinat 10/03/2016 M125 REGULAR MAINT 3 MONTH EDDELBUTTELYULISA 12/23/2016 M151 CMP EAR CLEANING EDDELBUTTEL, YULISA 12/23/2016 51198 Arthrocentesis, aspiration and/or injection, major joint or bursa (eg, shoulder, hip, knee, subacromial bursa); without ultrasound guidance 2016 06180 Radiologic examination, hip , unilateral, with pelvis when performed; 2-3 views 12/25/2016 Office or other outpatient visit for the evaluation and management of an established patient, which requires at least 2 of these 3 orellana components: An expanded problem focused history; An expanded prob 12/25/2016 Office or other outpatient visit for the evaluation and management of an established patient, which requires at least 2 of these 3 orellana components: A detailed history; A detailed examination; Medical d 02/05/2017 Office or other outpatient visit for the evaluation and management of an established patient, which requires at least 2 of these 3 orellana components: A detailed history; A detailed examination; Medical d 03/27/2017 Office or other outpatient visit for the evaluation and management of an established patient, which requires at least 2 of these 3 orellana components: An expanded problem focused history; An expanded prob 04/07/2017 Office or other outpatient visit for the evaluation and management of an established patient, which requires at least 2 of these 3 orellana components: An expanded problem focused history; An expanded prob 04/16/2017 M125 REGULAR MAINT 3 MONTH VAMSI STEVENSON 04/24/2017 M125 REGULAR MAINT 3 MONTH VAMSI STEVENSON 08/25/2017 Results Test Result Range Basic Metabolic Panel (BMP) - 04/07/17 11:23 Anion Gap 8 mEq/L 3-20 BUN 20 mg/dL 10-20 Calcium 9.4 mg/dL 8.4-10.2 Chloride 107 mEq/L 99-111 CO2 26 mEq/L 22-31 Creatinine 0.97 mg/dL 0.57-1.11 Glucose 139 mg/dL 70-99 Potassium 4.3 mEq/L 3.5-5.2 Sodium 141 mEq/L 135-144 eGFR - 04/07/17 11:23 eGFR 55 mL/min >60 B-Type Natriuretic Peptide - 04/07/17 11:23 B-Type Natriuretic Peptide 111 pg/mL 0-99 Encounters ACCT No. Visit Date/Time Discharge Status Pt. Type Provider Facility Loc./Unit Complaint [id number] 01/11/2014 14:16:00 01/11/2014 23:59:59 [facility] Outpatient [id number] 01/03/2014 11:21:00 01/03/2014 23:59:59 [facility] Outpatient [id number] 12/27/2013 10:56:00 12/27/2013 23:59:59 [facility] Outpatient [id number] 12/20/2013 11:04:00 12/20/2013 23:59:59 [facility] Outpatient [id number] 12/08/2013 09:47:00 12/08/2013 23:59:59 [facility] Outpatient [id number] 11/24/2013 09:47:00 11/24/2013 23:59:59 [facility] Outpatient [id number] 11/22/2013 11:40:00 11/22/2013 23:59:59 [facility] Outpatient [id number] 11/15/2013 15:09:00 11/15/2013 23:59:59 [facility]LS Outpatient [id number] 09/27/2013 14:15:00 09/27/2013 23:59:59 CLS Outpatient [id number] 08/23/2013 10:10:00 08/23/2013 23:59:59 CLS Outpatient [id number] 08/16/2013 13:42:00 08/16/2013 23:59:59 CLS Outpatient [id number] 04/08/2017 05:23:50 Document Registration [id number] 02/14/2017 05:16:03 Document Registration [id number] 01/01/2017 05:17:21 Document Registration [id number] 09/26/2016 05:16:50 Document Registration [id number] 09/10/2016 05:16:47 Document Registration [id number] 07/02/2016 05:19:34 Document Registration [id number] 06/24/2016 05:19:42 Document Registration [id number] 04/19/2016 05:16:30 Document Registration [id number] 03/18/2016 05:17:20 Document Registration [id number] 02/26/2016 05:19:13 Document Registration [id number] 01/31/2016 05:18:01 Document Registration [id number] 12/25/2015 05:18:19 Document Registration [id number] 12/20/2015 05:17:09 Document Registration [id number] 10/17/2015 05:16:46 Document Registration [id number] 08/16/2015 21:41:10 Document Registration [id number] 08/15/2015 12:23:10 Document Registration [id number] 08/15/2015 11:49:15 Document Registration [id number] 08/15/2015 11:10:55 Document Registration [id number] 08/15/2015 11:03:22 Document Registration [id number] 08/15/2015 10:56:49 Document Registration [id number] 08/15/2015 10:33:13 Document Registration [id number] 08/15/2015 10:27:50 Document Registration [id number] 08/15/2015 10:22:56 Document Registration [id number] 08/15/2015 10:17:21 Document Registration [id number] 08/15/2015 10:04:26 Document Registration [id number] 08/15/2015 09:38:38 Document Registration [id number] 08/15/2015 09:33:20 Document Registration [id number] 11/05/2018 00:05:00 11/05/2018 23:59:59 CLS Outpatient BARBARA MAHARAJ MD C [id number] 04/16/2017 09:13:00 04/16/2017 23:59:00 DIS Outpatient Daog Bai [facility] ck edema [id number] 04/07/2017 10:37:00 04/07/2017 23:59:00 DIS Outpatient Sarah Cross [facility] ARTHRITIS MED CHECK [id number] 03/27/2017 09:12:00 03/27/2017 23:59:00 DIS Outpatient Dago Bai [facility] swollen legs [id number] 02/05/2017 14:34:00 02/05/2017 23:59:00 DIS Outpatient Dago Bai [facility] CDV HTN [id number] 12/25/2016 09:14:00 12/25/2016 23:59:00 DIS Outpatient Sarah Cross [facility] rt leg pain effecting gait [id number] 10/03/2016 09:15:00 10/03/2016 23:59:00 DIS Outpatient Peyman Martin [facility] FC Ortho RCK LT THUMB PAIN [id number] 09/03/2016 10:34:00 09/03/2016 23:59:00 DIS Outpatient Peyman Martin [facility] NPT LT THUMB PAIN [id number] 08/01/2016 09:50:00 08/01/2016 23:59:00 DIS Outpatient Dago Bai [facility] TCPA htn [id number] 04/18/2016 08:34:00 04/18/2016 23:59:00 DIS Outpatient Dago Bai [facility] severe headaches and arthritis worse [id number] 01/30/2016 10:58:00 01/30/2016 23:59:00 DIS Outpatient Dago Bai [facility] 3 month [id number] 10/16/2015 12:54:00 10/16/2015 23:59:59 CLS Outpatient Sarah Cross [facility] sore throat cough [id number] 08/15/2015 10:56:00 08/15/2015 23:59:00 DIS Outpatient Dago Bai [facility] med ck [id number] 11/30/2014 13:22:00 11/30/2014 23:59:00 DIS Outpatient Dago Bai [facility] LT SHOULDER PAIN [id number] 11/16/2014 09:48:00 11/16/2014 23:59:00 DIS Outpatient Dago Bai [facility] med check [id number] 02/15/2015 10:12:00 Document Registration [id number] 01/31/2015 10:50:00 Document Registration
--- OUTSIDE RECORDS SUMMARY | 2018-12-27 17:30 | XMS REPORT | Referral Summary ---
Author Organization Unknown Address Unknown Phone Unavailable Care Team Providers Care Customs Entry Writer Name Role Phone Dago Bai PCP Encounter VC Date(s): 11/30/14 - 11/30/14 [address] [facility] [place], [address] [place] [id number] Discharge Diagnosis: Arthritis of shoulder Discharge Disposition: Home or Self Care Attending Physician: Dago Bai MD Admitting Physician: Dago Bai MD Vital Signs Most recent to 1 oldest [Reference Range]: Temperature Tympanic 36.0 degC [36.6-38.1 degC] *LOW* (11/30/14 1:27 PM) Peripheral Pulse 80 bpm Rate [60-100 bpm] (11/30/14 1:27 PM) Respiratory Rate 16 br/min [14-20 br/min] (11/30/14 1:27 PM) Blood Pressure 124/74 mmHg [90-140/60-90 mmHg] (11/30/14 1:27 PM) Problem List Condition Effective Dates Status [...] day), # 180 tabs, 3 Refill(s), Pharmacy: [id number], 2 tabs Oral Bedtime (once a day) Start Date: 11/28/14 Status: Ordered amLODIPine 2.5 mg oral tablet See Instructions, TAKE ONE TABLET BY MOUTH EVERY DAY, # 90 tabs, 3 Refill(s), eRx: [id number], TAKE ONE TABLET [...] BID, # 60 tabs, 10 Refill(s), Pharmacy: [facility], 1 tabs Oral BID Start Date: 11/16/14 Status: Ordered Fioricet oral tablet 1 tabs, Oral, q8hr, as needed for headache, [facility], # 90 tabs, 0 Refill(s) Special Instructions: [facility] Start Date: 11/06/14 Stop Date: 11/06/15 Status: Ordered furosemide 40 mg oral tablet 1 tabs, Oral, Daily, # 90 tabs, 3 Refill(s), Pharmacy: [facility], 1 tabs Oral Daily Start Date: 11/28/14 Status: Ordered Inderal LA 120 mg oral capsule, extended release 1 caps, Oral, Daily, # 90 caps, 3 Refill(s), Pharmacy: [facility], 1 caps Oral Daily Start Date: 11/16/14 Status: Ordered Klor-Con M20 oral tablet, extended release 1 tabs, Oral, Daily, # 90 tabs, 3 Refill(s), Pharmacy: [facility], 1 tabs Oral Daily Start Date: 11/28/14 Status: Ordered levothyroxine 150 mcg (0.15 mg) oral tablet 1 tabs, Oral, Daily, # 90 tabs, 1 Refill(s), Pharmacy: [facility], 1 tabs Oral Daily Start Date: 09/25/14 Status: Ordered losartan 100 mg oral tablet See Instructions, TAKE ONE TABLET BY MOUTH EVERY DAY, # 90 tabs, 3 Refill(s), Pharmacy: [facility], TAKE ONE TABLET BY MOUTH EVERY DAY Special Instructions: TAKE ONE TABLET BY MOUTH EVERY DAY Start Date: 11/16/14 Status: Ordered meloxicam 15 mg oral tablet See Instructions, TAKE ONE TABLET BY MOUTH EVERY DAY, # 90 tabs, 3 Refill(s), eRx: [facility], TAKE ONE TABLET BY MOUTH EVERY DAY Special Instructions: TAKE ONE TABLET BY MOUTH EVERY DAY Start Date: 09/18/14 Status: Ordered multivitamin Daily, 0 Refill(s) Start Date: 06/07/14 Status: Ordered PARoxetine 20 mg oral tablet See Instructions, TAKE ONE TABLET BY MOUTH EVERY DAY, # 90 tabs, 4 Refill(s), eRx: [facility], TAKE ONE TABLET BY MOUTH EVERY DAY Special Instructions: TAKE ONE TABLET BY MOUTH EVERY DAY Start Date: 09/18/14 Status: Ordered pramipexole 0.25 mg oral tablet 1 tabs, Oral, BID, # 180 tabs, 3 Refill(s), Pharmacy: [facility], 1 tabs Oral BID Start Date: 11/16/14 Status: Ordered propranolol 80 mg oral capsule, extended release 1 caps, Oral, Daily, # 30 caps, 3 Refill(s), Pharmacy: [facility], 1 caps Oral Daily Start Date: 06/07/14 Status: Ordered Vitamin C with Carole Hips Daily, 0 Refill(s) Start Date: 06/07/14 Status: Ordered Results No data available for this section Immunizations Vaccine Date Refusal Reason influenza virus vaccine, live 08/23/13 influenza virus vaccine, live 09/24/12 pneumococcal 23-polyvalent vaccine 04/02/09 Procedures Procedure Date Related Diagnosis Body Site Arthrocentesis, aspiration and/or injection, 11/30/14 major joint or bursa (eg, shoulder, hip, [...] Patient Education Author: Dago Bai MD Date: No follow up information was provided. Extracted from: Title: Office Visit Note Author: Dago Bai MD Date: 11/30/14 Assessment/Plan Arthritis of shoulder We discussed various options for treatment of this problem. As mentioned above she did have an injection previously and the right shoulder that helped quite a bit. After discussing options she elected to opt for an inlection today. I did inject the left shoulder with 2 mL of Kenalog and 1 mL of lidocaine under sterile technique anteriorly. She tolerated this well no further treatment needed. If it's not improving over the next few days to week she'll let me know. Ordered: Arthro/Asp Major Joint Inj (Shoulder, Hip, Knee) [id number]
--- NOTE | 2018-12-27 17:40 | ED Syncope ---
General Chief Complaint: Fever dizziness shortness of breath Stated Complaint: FEVER,DIZZY,PT FELL AT HOME Source of Information: Patient, Family Exam Limitations: Other (Dyspnea, patient has poor insight into her medical conditions) (NANCY JALLOH MD) History of Present Illness Date Seen by Provider: Dec 27, 2018 Time Seen by Provider: 17:30 83-year-old female who started having shortness of breath, muscle aches, and fatigue started yesterday evening. She went to bed early which is out of character for her. This morning her daughter noticed that she was more fatigued , and walking less.patient nearly passed out and felt dizzy.she has not been hospitalized recently and has no sick contacts.reports fever and chills, with productive cough she is uncertain of the color of sputum. (NANCY JALLOH MD) Allergies and Home Medications Allergies Coded Allergies: Sulfa (Sulfonamide Antibiotics) (Unverified Allergy, Severe, CLOSES THROAT , 12/27/18) codeine (Unverified Allergy, Severe, CLOSES THROAT, 12/27/18) Iodinated Contrast- Oral and IV Dye (Unverified Allergy, Intermediate, HIVES, 12/27/18) lisinopril (Unverified Adverse Reaction, Intermediate, CHRONIC COUGH, ) acetaminophen (Unverified Adverse Reaction, Unknown, 12/27/18) hydrocodone (Unverified Adverse Reaction, Unknown, 12/27/18) pregabalin (Unverified Adverse Reaction, Unknown, 12/27/18) Patient Home Medication List Home Medication List Reviewed: Yes (NANCY JALLOH MD) Review of Systems Constitutional: chills, fever, malaise, weakness EENTM: No ear pain, No blurred vision Respiratory: cough, dyspnea on exertion; No hemoptysis; short of breath Cardiovascular: No chest pain, No edema, No syncope; other (Near syncope) Gastrointestinal: No abdominal pain, No nausea, No vomiting Musculoskeletal: joint pain, muscle pain Skin: No lesions, No rash (NANCY JALLOH MD) Past Dzpzzmd-Txcxxz-Dmpacb Hx Past Med/Social Hx: Reviewed Nursing Past Med/Soc Hx (NANCY JALLOH MD) Patient Social History Recent Foreign Travel: No Contact w/Someone Who Travel: No (NANCY JALLOH MD) Physical Exam Vital Signs Vital Signs - First Documented 12/27/18 12/27/18 17:25 17:30 Temp 99.3 Pulse 78 Resp 20 B/P (MAP) 124/51 (75) Pulse Ox 84 O2 Delivery Room Air O2 Flow Rate 7.00 (DARINEL JARAMILLO DO) Vital Signs Capillary Refill : (NANCY JALLOH MD) Height, Weight, BMI Height: '" Weight: lbs. oz. kg; BMI Method: General Appearance: WD/WN, Moderate Distress (Speaks 3-5 word sentences.) HEENT: PERRL/EOMI, Normal ENT Inspection Neck: Full Range of Motion, Supple Cardiovascular: Regular Rate, Rhythm, No Edema, No Gallop, No JVD, No Murmur, Normal Peripheral Pulses Respiratory: Chest Non Tender, No Accessory Muscle Use, Rhonci (Left lower lobe ) Gastrointestinal: Normal Bowel Sounds, No Organomegaly, No Pulsatile Mass, Non Tender, Soft Back: No CVA Tenderness, No Vertebral Tenderness Extremities: Normal Capillary Refill, Normal Inspection, Normal Range of Motion , No Pedal Edema Neurologic/Psychiatric: Alert, Oriented x3, No Motor/Sensory Deficits (NANCY JALLOH MD) Focused Exam Lactate Level 12/27/18 17:40: Lactic Acid Level 3.34*H (DARINEL JARAMILLO DO) Lactic Acid Level Laboratory Tests Test 12/27/18 17:40 Lactic Acid Level 3.34 MMOL/L (0.50-2.00) *H (DARINEL JARAMILLO DO) Progress/Results/Core Measures Results/Orders Lab Results Laboratory Tests Test 12/27/18 17:40 Range/Units White Blood Count 14.5 H 4.3-11.0 10^3/uL Red Blood Count 4.41 4.35-5.85 10^6/uL Hemoglobin 12.6 11.5-16.0 G/DL Hematocrit 39 35-52 % Mean Corpuscular Volume 88 80-99 FL Mean Corpuscular Hemoglobin 29 25-34 PG Mean Corpuscular Hemoglobin Concent 33 32-36 G/DL Red Cell Distribution Width 13.6 10.0-14.5 % Platelet Count 122 L 130-400 10^3/uL Mean Platelet Volume 11.7 H 7.4-10.4 FL Neutrophils (%) (Auto) 87 H 42-75 % Lymphocytes (%) (Auto) 10 L 12-44 % Monocytes (%) (Auto) 3 0-12 % Eosinophils (%) (Auto) 0 0-10 % Basophils (%) (Auto) 0 0-10 % Neutrophils # (Auto) 12.6 H 1.8-7.8 X 10^3 Lymphocytes # (Auto) 1.5 1.0-4.0 X 10^3 Monocytes # (Auto) 0.4 0.0-1.0 X 10^3 Eosinophils # (Auto) 0.0 0.0-0.3 10^3/uL Basophils # (Auto) 0.0 0.0-0.1 10^3/uL Prothrombin Time 17.2 H 12.2-14.7 SEC INR Comment 1.4 0.8-1.4 Activated Partial Thromboplast Time 40 H 24-35 SEC Sodium Level 138 135-145 MMOL/L Potassium Level 3.9 3.6-5.0 MMOL/L Chloride Level 98 98-107 MMOL/L Carbon Dioxide Level 22 21-32 MMOL/L Anion Gap 18 H 5-14 MMOL/L Blood Urea Nitrogen 29 H 7-18 MG/DL Creatinine 1.43 H 0.60-1.30 MG/DL Estimat Glomerular Filtration Rate 35 BUN/Creatinine Ratio 20 Glucose Level 301 H 70-105 MG/DL Lactic Acid Level 3.34 *H 0.50-2.00 MMOL/L Calcium Level 8.7 8.5-10.1 MG/DL Corrected Calcium 8.9 8.5-10.1 MG/DL Total Bilirubin 1.1 H 0.1-1.0 MG/DL Aspartate Amino Transf (AST/SGOT) 12 5-34 U/L Alanine Aminotransferase (ALT/SGPT) 16 0-55 U/L Alkaline Phosphatase 58 40-136 U/L Troponin T 102 *H <=10 NG/L Total Protein 6.7 6.4-8.2 GM/DL Albumin 3.8 3.2-4.5 GM/DL (DARINEL JARAMILLO DO) Micro Results Microbiology 12/27/18 Influenza Types A,B Antigen (EDWIN) - Final, Complete (DARINEL JARAMILLO DO) My Orders Orders - DARINEL JARAMILLO DO Oseltamivir 75 Mg Capsule (Tamiflu 75 (12/27/18 18:26) Ondansetron Injection (Zofran Injectio (12/27/18 18:27) Heparin Drip 53727 Unit/500ml (Heparin (12/27/18 18:49) Heparin (Bolus Per Protocol) (Heparin (B (12/27/18 18:49) Aspirin Chewable Tablet (Baby Aspirin Ch (12/27/18 18:54) Troponin I (12/27/18 19:45) (DARINEL JARAMILLO DO) Medications Given in ED Current Medications Medications Dose Ordered Sig/Alan Route Start Time Stop Time Status Last Admin Dose Admin Albuterol/ Ipratropium 3 ml STK-MED ONCE .ROUTE 12/27/18 17:45 12/27/18 17:47 DC 12/27/18 17:49 3 ML Azithromycin 500 mg/Sodium Chloride 250 ml @ 250 mls/hr ONCE ONCE IV 12/27/18 18:00 12/27/18 18:59 DC 12/27/18 18:28 250 MLS/HR Ceftriaxone Sodium 1000 mg/ Sterile Water 10 ml @ 200 mls/hr ONCE ONCE IV 12/27/18 18:00 12/27/18 18:02 DC 12/27/18 19:17 200 MLS/HR Heparin Sodium (Porcine) HEPARIN BOLUS ACS PROTOC... 1849 ONCE IV 12/27/18 18:49 12/27/18 18:55 DC 12/27/18 19:16 4,900 UNIT Heparin Sodium/ Dextrose 500 ml @ 0 mls/hr Q0M ONCE IV 12/27/18 18:49 12/27/18 18:55 DC 12/27/18 19:18 20.7 MLS/HR Sodium Chloride 2,000 ml @ ud STK-MED ONCE .ROUTE 12/27/18 17:44 12/27/18 17:46 DC 12/27/18 17:56 1,000 MLS/HR (DARINEL JARAMILLO DO) Vital Signs/I&O 12/27/18 12/27/18 17:25 17:30 Temp 99.3 Pulse 78 Resp 20 B/P (MAP) 124/51 (75) Pulse Ox 84 84 O2 Delivery Room Air OxyMask O2 Flow Rate 7.00 (DARINEL JARAMILLO DO) Progress Progress Note : Time: 18:55 Progress Note Clint addendum: I reevaluated the patient at 6 PM upon change of shift. She and her family described to me that she started to feel a general malaise last night, fatigue, only later in the day today did she develop shortness of breath. She did have a fever at home of 101. She did endorse a mild cough. She has not had chest pain. She did have some lightheadedness at home earlier not associated with palpitations or chest pain. She also did not have any nausea or vomiting at home however during my evaluation she had an episode of dry heaving that was brief. I ordered a small dose of Zofran however ECG had a borderline prolonged QTc and I asked the nurse not to give this medication. Patient was feeling improved at that point. On exam she was in no acute distress although she was wearing an oxygen mask, oxygen saturation was approximately 90%. She had good air exchange in both of her lung saldana without obvious adventitious noises, heart sounds were normal, there is no edema, there is no JVD, abdomen was soft and nontender. I spoke with the patient and her family about the infiltrate on chest x-ray, she has not had any hospitalizations or treatment with antibiotics in the last three months, previous provider had ordered azithromycin and Rocephin for the patient. The lab called us and notified us of lactate of 3.34, also a troponin that was "critically elevated" over 100, our lab's cut off for "elevated" is 15. I spoke with the patient and family about these findings, the infiltrate on chest x-ray, also the incidentally elevated glucose level <300. She denies any known history of diabetes or coronary artery disease, no history of stress test or cardiac catheterization. Patient was to notify us of any worsening of her symptoms specifically development of chest pain or worsening shortness of breath, recurrent nausea or lightheadedness or palpitations. At approximately 6:50 PM patient was accepted for transport by Dr. Bar at [facility]. I discussed with him anticoagulating the patient given the significantly elevated troponin and symptoms that are potentially suggestive of cardiac ischemia in this elderly female patient with new diagnosis of diabetes, specifically fatigue, lightheadedness, nausea, dyspnea. He deferred the decision to us. I spoke to patient about any contraindications to anticoagulation, she has had no history of easy bleeding or bruising, no bloody or black stools or intracranial hemorrhages. (DARINEL JARAMILLO DO) Initial ECG Impression Date: Dec 27, 2018 Initial ECG Impression Time: 17:48 Comment Sinus rhythm 80 bpm MT and QRS intervals are normal prolonged QTC 492, normal axis and no hypertrophy no STEMI (NANCY JALLOH MD) EKG : Comment 1743: Normal sinus rhythm rate of 76. Nonspecific flattening/inversion of the T- wave in lead V2, nonspecific flattening of the T-wave in aVL. Possible Q-wave in lead 3 with some artifact in the inferior leads. Delayed precordial R-wave progression. QTC is 492 ms. (DARINEL JARAMILLO DO) Transfer of Care Time: 18:03 Care transferred to: Dr. Darinel Jaramillo at shift change pending re-evaluation and work-up results. (NANCY JALLOH MD) CAP: Antibiotics (s), Blood Cultures, CXR or CT, SaO2 (NANCY JALLOH MD) Critical Care Note Critical Care Total Time (minutes) 30 Progress Spelled by me at the bedside directing care, reviewing EKG discussing plan with the patient's family documentation. Ms. Ponce is critically ill with constant threat to life due to hypoxemia is likely due to pneumonia plus or minus influenza. Blood cultures were sent. She is a poor historian but based on her medications I suspect she may have some heart failure (on Lasix and Coreg) but she does not have any rales or edema on exam, therefore I do think she will tolerate 30 cc/kg of crystalloid bolus. Oxygen therapy started, DuoNeb, treat for community-acquired pneumonia with azithromycin and ceftriaxone. (NANCY JALLOH MD) Departure Impression Primary Impression: Severe sepsis Additional Impressions: NSTEMI (non-ST elevated myocardial infarction) Pneumonia Diabetes mellitus, new onset Disposition: XF [facility] Condition: Stable (guarded) Transfer Time Spoke to Accepting Phy: 06:50 Transfer Progress Notes Kelly Mendoza, accepted by Dr Bar Method of Transfer: EMS (DARINEL JARAMILLO DO) Departure-Patient Inst. Referrals: LUPIS AGUIAR DO (PCP) Primary Care Physician NANCY JALLOH MD Dec 27, 2018 17:40 DARINEL JARAMILLO DO Dec 27, 2018 19:02
[2018-12-27] MEDS ORDERED: NS IV 1000 ML 2,000 ML ONE (17:44)
[2018-12-27] MEDS ORDERED: RT-ALBUTEROL/IPRATROPIUM 3 ML (DUONEB) VIAL ONE (17:45)
[2018-12-27] MEDS ORDERED: AZITHROMYCIN INJECTION 500 MG in NS (IVPB) 250 ML IV ONE (18:00)
[2018-12-27] MEDS ORDERED: cefTRIAXone FOR IV USE 1,000 MG in WATER (STERILE) FOR INJECTION 10 ML IV ONE (18:00)
[2018-12-27 18:04] LABS: BASOPHILS % (AUTO) 0 % (0-10); EOSINOPHILS % (AUTO) 0 % (0-10); HEMATOCRIT 39 % (35-52); HEMOGLOBIN 12.6 G/DL (11.5-16.0); LYMPHOCYTES # (AUTO) 1.5 X 10^3 (1.0-4.0); LYMPHOCYTES % (AUTO) 10 % (12-44); MEAN CORPUSCULAR HEMOGLOBIN 29 PG (25-34); MEAN CORPUSCULAR HGB CONC 33 G/DL (32-36); MEAN CORPUSCULAR VOLUME 88 FL (80-99); MEAN PLATELET VOLUME 11.7 FL (7.4-10.4); MONOCYTES # (AUTO) 0.4 X 10^3 (0.0-1.0); MONOCYTES % (AUTO) 3 % (0-12); NEUTROPHILS # (AUTO) 12.6 X 10^3 (1.8-7.8); NEUTROPHILS % (AUTO) 87 % (42-75); PLATELET COUNT 122 10^3/uL (130-400); RED CELL DISTRIBUTION WIDTH 13.6 % (10.0-14.5); WHITE BLOOD COUNT 14.5 10^3/uL (4.3-11.0)
[2018-12-27 18:06] LABS: INR 1.4 (0.8-1.4); PROTHROMBIN TIME PATIENT 17.2 SEC (12.2-14.7)
--- NOTE | 2018-12-27 18:24 | Diagnostic Imaging Report ---
INDICATION: Fever. Upright AP portable view of the chest is obtained. Comparison is made to study of 07/23/2011. FINDINGS: There has been development of consolidation within the left lower lobe. There is also mild right parahilar atelectasis and/or pneumonitis. No pneumothorax is seen. IMPRESSION: Left lower lobe pneumonia with right parahilar atelectasis and/or pneumonitis. Followup PA and lateral views of the chest should be obtained to document resolution. Dictated by: Dictated on workstation # [id number]
[2018-12-27] MEDS ORDERED: OSELTAMIVIR 75 MG (TAMIFLU) CAPSULE PO STA (18:26)
[2018-12-27] MEDS ORDERED: ONDANSETRON 4 MG/2 ML (SDV) Z0FRAN IVP STA (18:27)
[2018-12-27 18:33] LABS: POTASSIUM 3.9 MMOL/L (3.6-5.0)
[2018-12-27 18:34] LABS: BILIRUBIN,TOTAL 1.1 MG/DL (0.1-1.0); CALCIUM 8.7 MG/DL (8.5-10.1); CREATININE SERUM 1.43 MG/DL (0.60-1.30)
[2018-12-27 18:35] LABS: ALBUMIN 3.8 GM/DL (3.2-4.5); TOTAL PROTEIN 6.7 GM/DL (6.4-8.2)
--- NOTE | 2018-12-27 18:43 | NUR ---
REGISTRATION FAXING FACE SHEET TO [facility].
[2018-12-27] MEDS ORDERED: HEParin DRIP 25000 UNIT/500ML 500 ML IV ONE (18:49)
[2018-12-27] MEDS ORDERED: HEParin 1000 UNIT/ML (10ML VIAL) FOR BOLUS IV ONE (18:49)
[2018-12-27] MEDS ORDERED: ASPIRIN 81 MG CHEW (CHILDREN'S ASA) PO STA (18:54)
--- NOTE | 2018-12-27 19:00 | NUR ---
Report to Susanne DUBON and David DUBON.
--- NOTE | 2018-12-27 19:00 | NUR ---
Registration is now sending pt's Facesheet to [facility]. Updated info required prior to sending.
[2018-12-27 20:02] VITALS: BP 122/63
== END 2018-12-27 20:02 | disposition short-term general hospital (02) ==
LOC: ER FS 17:22
DX: A41.9 Sepsis, unspecified organism (principal); R65.20 Severe sepsis without septic shock; I21.4 Non-ST elevation (NSTEMI) myocardial infarction; J18.9 Pneumonia, unspecified organism; E11.9 Type 2 diabetes mellitus without complications; Z88.2 Allergy status to sulfonamides; Z88.5 Allergy status to narcotic agent; Z91.041 Radiographic dye allergy status; Z88.8 Allergy status to other drugs, medicaments and biological substances; Z88.6 Allergy status to analgesic agent
CPT/HCPCS: 36415; 71045; 80053; 83605; 84484; 85025; 85610; 85730; 87040; 87804

== ENCOUNTER → 2019-01-19 | Outpatient (CLI) | payer MEDICARE, BC ==
--- NOTE | 2019-01-19 18:30 | Diagnostic Imaging Report ---
INDICATION: Pneumonia. COMPARISON: Comparison with 12/27/2018. TECHNIQUE: PA and lateral views. FINDINGS: There has been significant improvement in the left lower lung with improved aeration and decreased infiltrate. There continues to be mild infiltrate medially in the left lung base with mild blunting of the left costophrenic angle. The right lung is now well-aerated and clear. The heart is upper limits of normal. The upper lungs are clear with no evidence of pulmonary edema. IMPRESSION: 1. Right lung is now clear. 2. There has been significant decrease in infiltrate and effusion on the left though there continues to be mild infiltrate and small left basilar effusion. Dictated by: Dictated on workstation # [id number]
== END ==
LOC: RAD FS 17:01
PROVIDERS: ATTEND Nurse Practitioner
DX: J18.9 Pneumonia, unspecified organism (principal); J90 Pleural effusion, not elsewhere classified
CPT/HCPCS: 71046

== ENCOUNTER → 2021-01-04 | Outpatient (CLI) | payer MEDICARE, BC | LOC: LAB FS 10:00 | PROVIDERS: ATTEND Emergency Medicine | DX: Z01.812 Encounter for preprocedural laboratory examination (principal); Z20.822 Contact with and (suspected) exposure to COVID-19 | CPT/HCPCS: 87635 ==

== ENCOUNTER → 2021-01-22 | Outpatient (CLI) | payer MEDICARE, BC | LOC: LAB FS 10:00 | PROVIDERS: ATTEND Emergency Medicine | DX: Z01.812 Encounter for preprocedural laboratory examination (principal); Z20.822 Contact with and (suspected) exposure to COVID-19 | CPT/HCPCS: 87635 ==

== ENCOUNTER 2022-05-09 07:38 | Emergency (ER) | payer MEDICARE, BC ==
[~2022-05-09] VITALS: Ht 170 cm; Wt 69.0 kg
[2022-05-09 07:59] LABS: BASOPHILS % (AUTO) 0 % (0-10); EOSINOPHILS # (AUTO) 0.1 10^3/uL (0.0-0.3); EOSINOPHILS % (AUTO) 1 % (0-10); HEMATOCRIT 35 % (35-52); HEMOGLOBIN 11.4 g/dL (11.5-16.0); LYMPHOCYTES # (AUTO) 1.6 10^3/uL (1.0-4.0); LYMPHOCYTES % (AUTO) 13 % (12-44); MEAN CORPUSCULAR HEMOGLOBIN 28 pg (25-34); MEAN CORPUSCULAR HGB CONC 32 g/dL (32-36); MEAN CORPUSCULAR VOLUME 86 fL (80-99); MEAN PLATELET VOLUME 11.1 fL (9.0-12.2); MONOCYTES # (AUTO) 0.9 10^3/uL (0.0-1.0); MONOCYTES % (AUTO) 7 % (0-12); NEUTROPHILS # (AUTO) 9.7 10^3/uL (1.8-7.8); NEUTROPHILS % (AUTO) 79 % (42-75); PLATELET COUNT 145 10^3/uL (130-400); WHITE BLOOD COUNT 12.3 10^3/uL (4.3-11.0)
[2022-05-09] MEDS ORDERED: NITROGLYCERIN 0.4 MG SL TABS BTL 25'S SL PRN (08:00)
[2022-05-09] MEDS ORDERED: ASPIRIN 81 MG CHEW (CHILDREN'S ASA) PO ONE (08:00)
--- NOTE | 2022-05-09 08:03 | ED Chest Pain ---
General Chief Complaint: Chest Pain Stated Complaint: CHEST PAIN; SOB Source: patient, family, old records History of Present Illness Date Seen by Provider: May 09, 2022 Time Seen by Provider: 07:39 Initial Comments 86-year-old female presenting with family to the emergency department complaining of pain across her chest. She states that this started around 1:30 in the morning and has been constant since then. It is worse when she takes a d eep breath or is talking. She describes it as a dull pressure. It does not go into her back or abdomen. She does have the pain going from the upper chest into her neck. She denies having pain or symptoms like this previously. She reports having COPD and having a cough related to that but does not feel that she is coughing any more than usual. She denies fever, chills, body aches, nausea, vomiting. She had gone to the urgent care clinic and they referred her to the emergency department this morning. She took Tylenol for the pain and states the pain has improved down to a 5 out of 10 now. Timing/Duration: 4-6 hours (since 130 am) Severity/Quality: moderate, dull, pressure Location: central (across front of chest) Radiation: neck Activities at Onset: rest Prior CP/Workup: non-cardiac (had elevated Troponin in 2019 with pneumonia and transferred to [facility] but pt denies heart problems or stents) Modifying Factors: worse with breathing (deep breaths and talking makes the pain worse) ASA po INSIDE WIRER: No NTG SL INSIDE WIRER: No Associated Symptoms: No abdominal pain, No back pain, No diaphoresis, No dizziness, No edema, No fatigue, No fever/chills, No headache, No heartburn, No nausea/vomiting, No rash; shortness of breath; No swelling/lump in chest, No syncope, No weakness Allergies and Home Medications Allergies Coded Allergies: Sulfa (Sulfonamide Antibiotics) (Unverified Allergy, Severe, CLOSES THROAT, 12/27/18) codeine (Unverified Allergy, Severe, CLOSES THROAT, 12/27/18) Iodinated Contrast- Oral and IV Dye (Unverified Allergy, Intermediate, HIVES, 12/27/18) lisinopril (Unverified Adverse Reaction, Intermediate, CHRONIC COUGH, 12/27/18) acetaminophen (Unverified Adverse Reaction, Unknown, 12/27/18) hydrocodone (Unverified Adverse Reaction, Unknown, 12/27/18) pregabalin (Unverified Adverse Reaction, Unknown, 12/27/18) Patient Home Medication List Home Medication List Reviewed: Yes Review of Systems Review of Systems Constitutional: No chills, No diaphoresis, No dizziness, No fever EENTM: No Nose Congestion Respiratory: See HPI Cardiovascular: See HPI Gastrointestinal: See HPI; Denies Nausea, Denies Vomiting Genitourinary: No Symptoms Reported Musculoskeletal: no symptoms reported Skin: No rash Psychiatric/Neurological: Denies Numbness, Denies Paresthesia Endocrine: No Symptoms Reported Hematologic/Lymphatic: Denies Blood Clots Past Euuyflg-Macptd-Wwzisr Hx Patient Social History Tobacco Use?: Yes Tobacco type used: Cigarettes Smoking Status: Former Smoker Use of E-Cig and/or Vaping dev: No Substance use?: No Alcohol Use?: No Pt feels they are or have been: No Immunizations Up To Date First/Initial COVID19 Vaccinat: 2020 Second COVID19 Vaccination Nabil: 2020 Third COVID19 Vaccination Date: 2020 COVID19 Vaccine Grey Goods Tester: Lela Seasonal Allergies Seasonal Allergies: No Past Medical History Surgery/Hospitalization HX: DIABETES, HTN, Hypothyroid, Hypercholesterolemia. COPD Respiratory: Yes COPD Cardiac: Yes (poor historian) High Cholesterol, Hypertension Neurological: Yes (poor historian) Headaches /Migraines Genitourinary: No (poor historian) Gastrointestinal: No (poor historian) Musculoskeletal: Yes (RLS of legs) Osteoporosis, Arthritis Endocrine: Yes Hypothyroidsim HEENT: No (poor historian) Cancer: No (poor historian ) Psychosocial: No (poor historian) Integumentary: No (poor historian) Physical Exam Vital Signs Vital Signs - First Documented 05/09/22 07:43 Temp 36.6 Pulse 80 Resp 18 B/P (MAP) 134/83 (100) Pulse Ox 96 Capillary Refill : Less Than 3 Seconds Height, Weight, BMI Height: 5'7.00" Weight: 180lbs. oz. 81.223065oh; BMI Method:Stated General Appearance: No Apparent Distress, WD/WN HEENT: PERRL/EOMI, Pharynx Normal Neck: Full Range of Motion, Normal Inspection, Non Tender, Supple Respiratory: Chest Non Tender, Lungs Clear, Normal Breath Sounds, No Accessory Muscle Use, No Respiratory Distress Cardiovascular: Regular Rate, Rhythm, No Edema, No Murmur, Normal Peripheral Pulses Gastrointestinal: Normal Bowel Sounds, No Pulsatile Mass, Non Tender, Soft Rectal: Deferred Extremity: Normal Capillary Refill, Normal Inspection, No Calf Tenderness, No Pedal Edema Neurologic/Psychiatric: Alert, Oriented x3, No Motor/Sensory Deficits, hand coremaker II- XII Norm as Tested Skin: Normal Color, Warm/Dry Images 1 - states the pain is across her upper chest and radiates to her neck Progress/Results/Core Measures Results/Orders Lab Results Laboratory Tests Test 05/09/22 07:48 05/09/22 08:09 Range/Units White Blood Count 12.3 H 4.3-11.0 10^3/uL Red Blood Count 4.10 3.80-5.11 10^6/uL Hemoglobin 11.4 L 11.5-16.0 g/dL Hematocrit 35 35-52 % Mean Corpuscular Volume 86 80-99 fL Mean Corpuscular Hemoglobin 28 25-34 pg Mean Corpuscular Hemoglobin Concent 32 32-36 g/dL Red Cell Distribution Width 13.7 10.0-14.5 % Platelet Count 145 130-400 10^3/uL Mean Platelet Volume 11.1 9.0-12.2 fL Immature Granulocyte % (Auto) 1 % Neutrophils (%) (Auto) 79 H 42-75 % Lymphocytes (%) (Auto) 13 12-44 % Monocytes (%) (Auto) 7 0-12 % Eosinophils (%) (Auto) 1 0-10 % Basophils (%) (Auto) 0 0-10 % Neutrophils # (Auto) 9.7 H 1.8-7.8 10^3/uL Lymphocytes # (Auto) 1.6 1.0-4.0 10^3/uL Monocytes # (Auto) 0.9 0.0-1.0 10^3/uL Eosinophils # (Auto) 0.1 0.0-0.3 10^3/uL Basophils # (Auto) 0.0 0.0-0.1 10^3/uL Immature Granulocyte # (Auto) 0.1 0.0-0.1 10^3/uL Prothrombin Time 14.5 12.2-14.7 SEC INR Comment 1.1 0.8-1.4 Activated Partial Thromboplast Time 28 24-35 SEC Sodium Level 139 135-145 MMOL/L Potassium Level 3.9 3.6-5.0 MMOL/L Chloride Level 106 98-107 MMOL/L Carbon Dioxide Level 20 L 21-32 MMOL/L Anion Gap 13 5-14 MMOL/L Blood Urea Nitrogen 28 H 7-18 MG/DL Creatinine 0.92 0.60-1.30 MG/DL Estimat Glomerular Filtration Rate 60 BUN/Creatinine Ratio 30 Glucose Level 253 H 70-105 MG/DL Calcium Level 8.8 8.5-10.1 MG/DL Corrected Calcium 8.6 8.5-10.1 MG/DL Magnesium Level 2.0 1.6-2.4 MG/DL Total Bilirubin 0.4 0.1-1.0 MG/DL Aspartate Amino Transf (AST/SGOT) 13 5-34 U/L Alanine Aminotransferase (ALT/SGPT) 15 0-55 U/L Alkaline Phosphatase 68 40-136 U/L Myoglobin 119.3 H <58.0 NG/ML Troponin I < 0.30 <0.30 NG/ML Pro-B-Type Natriuretic Peptide 1057.0 H <450.0 PG/ML Total Protein 7.0 6.4-8.2 GM/DL Albumin 4.3 3.2-4.5 GM/DL Lipase 18 8-78 U/L Influenza Type A (RT-PCR) Not Detected Not Detecte Influenza Type B (RT-PCR) Not Detected Not Detecte SARS-CoV-2 RNA (RT-PCR) Not Detected Not Detecte My Orders Orders - DANITA GARCIA MD Cbc With Automated Diff (05/09/22 07:49) Magnesium (05/09/22 07:49) Chest 1 View Ap/Pa Only (05/09/22 07:49) Ekg Tracing (05/09/22 07:49) Comprehensive Metabolic Panel (05/09/22 07:49) Myoglobin Serum (05/09/22 07:49) Protime With Inr (05/09/22 07:49) Partial Thromboplastin Time (05/09/22 07:49) O2 (05/09/22 07:49) Monitor-Rhythm Ecg Trace Only (05/09/22 07:49) Aspirin Chewable Tablet (Baby Aspirin Ch (05/09/22 08:00) Ed Iv/Invasive Line Start (05/09/22 07:49) Lipase (05/09/22 07:49) Troponin I Fs (05/09/22 07:49) Probnp Fs (05/09/22 07:49) Nitroglycerin 0.4 Mg Btl 25's (Nitrostat (05/09/22 08:00) Covid 19 Inhouse Test (05/09/22 07:53) Influenza A And B By Pcr (05/09/22 07:53) Isolation Central Supply Req (05/09/22 07:53) Medications Given in ED Current Medications Medications Dose Ordered Sig/Alan Route Start Time Stop Time Status Last Admin Dose Admin Aspirin 324 mg ONCE ONCE PO 05/09/22 08:00 05/09/22 08:01 DC 05/09/22 08:01 324 MG Nitroglycerin 1 TAB Q 5 MIN X 3 NEEDED PRN SL 05/09/22 08:00 05/09/22 08:01 0.4 MG Vital Signs/I&O 05/09/22 07:43 Temp 36.6 Pulse 80 Resp 18 B/P (MAP) 134/83 (100) Pulse Ox 96 Progress Progress Note #1: Progress Note Check basic labs and electrocardiogram as well as chest x-ray. Swab for COVID and influenza. Administer aspirin 324 mg p.o. as well as sublingual nitroglycerin 0.4 mg every 5 minutes x3 as needed chest pain. Differential diagnosis includes pneumonia, non-STEMI, heart failure, COVID, influenza, pleurisy, musculoskeletal chest pain Progress Note #2: Progress Note Labs are stable without acute significant abnormality. She did have a mild elevation of her white blood cell count to 12.3. Her coags were negative. Her chemistry panel showed a negative troponin of less than 0.3. This is after over 6 hours of pain on presentation to the ED and drawing of blood. Her proBNP was slightly elevated at 1067. Chest x-ray showed some cardiomegaly without infiltrate or effusion. Swab for COVID and influenza was all negative. Her pain was improved with treatment in the ED. Since she does not have acute ST elevation on ECG and no elevation of Troponin after over 6 hours of pain and sym ptoms will discharge on short course of NSAID for pleuritic chest pain or musculoskeletal chest pain. Encouraged to check back with Dr. Otto or pcp. 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 Initial ECG Impression Date: May 09, 2022 Initial ECG Impression Time: 07:44 Initial ECG Rate: 76 Initial ECG Rhythm: Normal Sinus Initial ECG Comparisson: Changed (Now shows Intraventricular conduction delay) Comment Ectopic atrial rhythm with a heart rate of 76 bpm. ND interval 161 ms. Prolonged QT interval 441 ms and QTc interval [address] elevation. She does have moderate intraventricular conduction delay which is new from her previous EKG in 2019. Otherwise the rest of the tracing appears similar to her EKG from 2019. Diagnostic Imaging Diagonstic Imaging: Xray Plain Films/CT/US/NM/MRI: chest Comments NAME: [facility] REC#: [id number] PT STATUS: REG ER : 1935 PHYSICIAN: DANITA GARCIA MD ADMIT DATE: 05/09/22/ER FS Draft Date of Exam:05/09/22 CHEST 1 VIEW AP/PA ONLY INDICATION: Chest pain Frontal chest obtained at 8:02 a.m. and compared to 01/19/2019. There is cardiomegaly. There is poor inspiration. There is mild bibasilar atelectasis. There is no pneumothorax or significant pleural fluid. IMPRESSION: Mild cardiomegaly and bibasilar atelectasis. No pneumothorax or pleural fluid. Dictated on workstation # [id number] Dict: 05/09/22 0808 Trans: 05/09/22 0811 [facility] [id number] Interpreted by: LEV MO MD Electronically signed by: Reviewed: Reviewed by Me Departure Impression Primary Impression: Atypical chest pain Additional Impression: Pleuritic chest pain Disposition: 01 HOME, SELF-CARE Condition: Stable Departure-Patient Inst. Decision time for Depature: 09:29 Referrals: JOVITA OTTO MD (PCP) Primary Care Physician Patient Instructions: Pleuritic Chest Pain ED, Chest Pain, Adult ED Add. Discharge Instructions: Your tests this morning did not show any indication of heart attack or heart damage The chest x-ray did not show any pneumonia or fluid buildup. Your symptoms may be from inflammation due to the lining of the lungs or to the chest wall itself. We will try a short course of anti-inflammatories to help with pain and inflammation. Check back with primary care provider for continued symptoms or if not improving. Return or seek medical care if you have new or worsening symptoms before you follow up with the clinic. All discharge instructions reviewed with patient and/or family. Voiced understa nding. Scripts Meloxicam (Meloxicam) 7.5 Mg Tablet 7.5 MG PO DAILY for pleuritic chest pain for 7 Days, #7 TAB 0 Refills Prov: DANITA GARCIA MD 05/09/22 DANITA GARCIA MD May 09, 2022 08:03
--- NOTE | 2022-05-09 08:12 | Diagnostic Imaging Report ---
INDICATION: Chest pain Frontal chest obtained at 8:02 a.m. and compared to 01/19/2019. There is cardiomegaly. There is poor inspiration. There is mild bibasilar atelectasis. There is no pneumothorax or significant pleural fluid. IMPRESSION: Mild cardiomegaly and bibasilar atelectasis. No pneumothorax or pleural fluid. Dictated by: Dictated on workstation # [id number]
[2022-05-09 08:59] LABS: CALCIUM 8.8 MG/DL (8.5-10.1); CREATININE SERUM 0.92 MG/DL (0.60-1.30); POTASSIUM 3.9 MMOL/L (3.6-5.0)
[2022-05-09 09:00] LABS: ALBUMIN 4.3 GM/DL (3.2-4.5); BILIRUBIN,TOTAL 0.4 MG/DL (0.1-1.0)
[2022-05-09 09:05] LABS: INR 1.1 (0.8-1.4); PROTHROMBIN TIME PATIENT 14.5 SEC (12.2-14.7)
[2022-05-09] MEDS ORDERED: KETOROLAC 30 MG/ML VIAL IVP STA (09:35)
[2022-05-09] MEDS ORDERED: MELO7.5T46 PO (09:35)
[2022-05-09 09:52] VITALS: BP 99/49
[2022-05-10] MEDS ORDERED: AMLO2.5T4 PO (12:14)
[2022-05-10] MEDS ORDERED: FURO40TA4 PO (12:14)
[2022-05-10] MEDS ORDERED: POTA-179 PO (12:14)
[2022-05-10] MEDS ORDERED: CARV25TA PO (12:14)
[2022-05-10] MEDS ORDERED: PRAM0.257 PO (12:14)
[2022-05-10] MEDS ORDERED: SIMV20TA26 PO (12:14)
[2022-05-10] MEDS ORDERED: NORT50CA PO (12:14)
[2022-05-10] MEDS ORDERED: TOPI50TA13 PO (12:14)
[2022-05-10] MEDS ORDERED: GABA300C PO (12:14)
[2022-05-10] MEDS ORDERED: METF-399 PO (12:14)
[2022-05-10] MEDS ORDERED: LEVO150T6 PO (12:14)
[2022-05-12] MEDS ORDERED: CEFD300C3 PO (13:22)
[2022-05-12] MEDS ORDERED: ALBU18HF2 INH (13:22)
[2022-05-12] MEDS ORDERED: METF-397 PO (13:22)
[2022-05-12] MEDS ORDERED: ATOR10TA66 PO (13:22)
== END 2022-05-09 09:53 | disposition home or self-care (01) ==
LOC: EDUNIT# 07:38 → ER FS 07:40
DX: R07.81 Pleurodynia (principal); D72.829 Elevated white blood cell count, unspecified; R79.89 Other specified abnormal findings of blood chemistry; Z20.822 Contact with and (suspected) exposure to COVID-19
CPT/HCPCS: 36415; 71045; 80053; 83690; 83735; 83874; 83880; 84484; 85025; 85610; 85730; 87636; 93005; 93041

== ENCOUNTER 2022-05-09 13:44 | Inpatient (IN) | payer MEDICARE, BC ==
[~2022-05-09] VITALS: Ht 170 cm; Wt 81.5 kg
[~2022-05-09 13:44] MED LIST: MELO7.5T46 PO
[2022-05-09] MEDS ORDERED: NS IV 1000 ML 1,000 ML ONE (14:06)
[2022-05-09] MEDS ORDERED: VANCOMYCIN INJECTION 1,500 MG in NS IV 500 ML 500 ML IV ONE (14:15)
[2022-05-09] MEDS ORDERED: CEFEPIME INJECTION 1,000 MG in NS (IVPB) 50 ML IV ONE (14:15)
[2022-05-09 14:21] LABS: BASOPHILS % (AUTO) 0 % (0-10); EOSINOPHILS % (AUTO) 0 % (0-10); HEMOGLOBIN 10.5 g/dL (11.5-16.0)
[2022-05-09 14:23] LABS: HEMATOCRIT 33 % (35-52); LYMPHOCYTES # (AUTO) 2.2 10^3/uL (1.0-4.0); LYMPHOCYTES % (AUTO) 17 % (12-44); MEAN CORPUSCULAR HEMOGLOBIN 28 pg (25-34); MEAN CORPUSCULAR HGB CONC 32 g/dL (32-36); MEAN CORPUSCULAR VOLUME 90 fL (80-99); MEAN PLATELET VOLUME 11.7 fL (9.0-12.2); MONOCYTES # (AUTO) 1.2 10^3/uL (0.0-1.0); MONOCYTES % (AUTO) 9 % (0-12); NEUTROPHILS # (AUTO) 9.8 10^3/uL (1.8-7.8); NEUTROPHILS % (AUTO) 74 % (42-75); PLATELET COUNT 140 10^3/uL (130-400); WHITE BLOOD COUNT 13.3 10^3/uL (4.3-11.0)
[2022-05-09] MEDS: NS IV 1000 ML 1,000 ML IV SCH ×4 (14:23→23:43)
[2022-05-09 14:25] LABS: SMEAR SCAN COMMENT YES
[2022-05-09 14:31] LABS: POTASSIUM 4.5 MMOL/L (3.6-5.0)
[2022-05-09 14:32] LABS: CALCIUM 8.7 MG/DL (8.5-10.1)
[2022-05-09 14:37] LABS: CREATININE SERUM 1.42 MG/DL (0.60-1.30)
--- NOTE | 2022-05-09 14:46 | ED General ---
General Chief Complaint: General Problems/Pain Stated Complaint: WEAKNESS,SLOW SPEECH Nursing Triage Note: daughter states pt started having chest pain about 0200 this a.m. pt was seen in [facility] er this morning, blood work, covid test, and cxr done and pt was dc'd about 1000. pt walked out of the er in [facility] and 1200 pt was not able to walk. slow speech Source of Information: Patient Exam Limitations: No Limitations History of Present Illness Date Seen by Provider: May 09, 2022 Time Seen by Provider: 14:17 Initial Comments Patient to the ER by private conveyance with chief complaint that about 130 this morning she started having some chest pain dull pressure mild across to her left chest and mid sternum nonradiating. She went to the ER in [place] and had blood work, COVID and influenza test negative, and negative chest x-ray and negative troponin. She was dismissed from the ER to follow-up with primary care. Patient was then traveling to [place] with family for vacation immediately afterwards and became weak and was not able to stand up or walk. When she arrived to the ER nursing noted that her blood pressure was 80/50. Previous labs did demonstrate an marginally elevated troponin and a BUN of 29 but were otherwise unremarkable for significant anemia or elevated troponin. She does not have a history of coronary disease. She is diabetic but not having any vomiting, diarrhea, nausea or shortness of air. She notes that when she takes a deep breath that makes her pain more uncomfortable in her chest. She was prescribed meloxicam but has not taken any doses. Typically she takes her blood pressure medicines at 8 in the morning however she took them at 11 after she got out of the ER and shortly before she started to become symptomatic. Discussed the case with previous ER physician who states that she did have a transient dip in her blood pressure with a single dose of sublingual nitroglycerin. She was resting comfortably, sleeping with a stable blood pressure around 100 systolic when he decided to discharge her. He informed her verbally not to take her blood pressure medicines today because of her soft blood pressure. Patient states she is had colonoscopy in the past which was unremarkable. Allergies and Home Medications Allergies Coded Allergies: Sulfa (Sulfonamide Antibiotics) (Unverified Allergy, Severe, CLOSES THROAT, 12/27/18) codeine (Unverified Allergy, Severe, CLOSES THROAT, 12/27/18) Iodinated Contrast Media (Unverified Allergy, Intermediate, HIVES, 12/27/18) lisinopril (Unverified Adverse Reaction, Intermediate, CHRONIC COUGH, 12/27/18) acetaminophen (Unverified Adverse Reaction, Unknown, 12/27/18) hydrocodone (Unverified Adverse Reaction, Unknown, 12/27/18) pregabalin (Unverified Adverse Reaction, Unknown, 12/27/18) Patient Home Medication List Home Medication List Reviewed: Yes Meloxicam (Meloxicam) 7.5 Mg Tablet, 7.5 MG PO DAILY Prescribed by: DANITA GARCIA on 05/09/22 0935 Review of Systems Review of Systems Constitutional: No chills, No diaphoresis EENTM: No ear discharge, No hearing loss, No ear pain Respiratory: No cough, No short of breath Cardiovascular: No edema, No palpitations Gastrointestinal: No abdominal pain, No nausea, No vomiting Genitourinary: No dysuria, No frequency Musculoskeletal: No back pain, No joint pain All Other Systems Reviewed Negative Unless Noted: Yes Past Qiufumk-Qjwude-Kdvmfd Hx Patient Social History Tobacco Use?: No Substance use?: No Alcohol Use?: No Immunizations Up To Date First/Initial COVID19 Vaccinat: 2020 Second COVID19 Vaccination Nabil: 2020 Third COVID19 Vaccination Date: 2020 Seasonal Allergies Seasonal Allergies: No Past Medical History Surgery/Hospitalization HX: DIABETES, HTN, Hypothyroid, Hypercholesterolemia. COPD Respiratory: Yes COPD Cardiac: Yes (poor historian) High Cholesterol, Hypertension Neurological: Yes (poor historian) Headaches /Migraines Genitourinary: No (poor historian) Gastrointestinal: No (poor historian) Musculoskeletal: Yes (RLS of legs) Osteoporosis, Arthritis Endocrine: Yes Hypothyroidsim HEENT: No (poor historian) Cancer: No (poor historian ) Psychosocial: No (poor historian) Integumentary: No (poor historian) Physical Exam-Suspected Sepsis Physical Exam Vital Signs Vital Signs - First Documented 05/09/22 13:52 Temp 36.4 Pulse 57 Resp 20 B/P (MAP) 78/48 (58) Pulse Ox 93 O2 Delivery Room Air Capillary Refill : Less Than 3 Seconds Blood Pressure Mean: 58 Height, Weight, BMI Height: 5'7.00" Weight: 180lbs. oz. 81.165150fw; 23.00 BMI Method:Stated General Appearance: No Apparent Distress, WD/WN Eyes: Bilateral Eye Normal Inspection, Bilateral Eye PERRL, Bilateral Eye EOMI HEENT: PERRL/EOMI, TMs Normal, Normal ENT Inspection, Pharynx Normal, Moist Mucous Membranes Neck: Full Range of Motion, Normal Inspection, Non Tender Respiratory: Lungs Clear, Normal Breath Sounds, No Accessory Muscle Use, No Respiratory Distress Cardiovascular: Regular Rate, Rhythm (Inappropriate bradycardia 55-60 despite hypotension), No Edema, Normal Peripheral Pulses; No JVD Gastrointestinal: Normal Bowel Sounds, Non Tender, Soft Genital/Rectal: Normal Rectal Exam, Normal Rectal Tone, Heme Negative Stool Extremity: Normal Capillary Refill, Normal Inspection, No Pedal Edema Neurologic/Psychiatric: Alert, Oriented x3, No Motor/Sensory Deficits, Normal Mood/Affect Skin: normal color, warm/dry Focused Exam Sepsis Stage: Severe Sepsis Possible Source: Genitouriary Lactate Level 05/09/22 14:20: Lactic Acid Level 3.29*H 05/09/22 16:20: Lactic Acid Level 2.15*H Time of Focused Exam: 17:02 Respiratory: Lungs Clear, Normal Breath Sounds, No Accessory Muscle Use, No Respiratory Distress Cardiovascular: Regular Rate, Rhythm, No Edema, Normal Peripheral Pulses Capillary Refill: Less Than 3 Seconds Peripheral Pulses: 2+ Radial Pulses (R), 2+ Radial Pulses (L) Skin: normal color, warm/dry Lactic Acid Level Laboratory Tests Test 05/09/22 14:20 05/09/22 16:20 Lactic Acid Level 3.29 MMOL/L (0.50-2.00) *H 2.15 MMOL/L (0.50-2.00) *H Within 3hrs of presentation: Admin fluids, Admin ABX, Blood cultures prior to ABX's, Focus exam, Lactate level, Other Progress/Results/Core Measures Suspected Sepsis SIRS Temperature: Pulse: 57 Respiratory Rate: 20 Laboratory Tests 05/09/22 13:58: White Blood Count 13.3H Blood Pressure 78 /48 Mean: 58 05/09/22 14:20: Lactic Acid Level 3.29*H 05/09/22 16:20: Lactic Acid Level 2.15*H Laboratory Tests 05/09/22 13:58: Creatinine 1.42H, Platelet Count 140 Results/Orders Lab Results Laboratory Tests Test 05/09/22 13:58 05/09/22 14:20 05/09/22 15:39 05/09/22 16:20 Range/Units White Blood Count 13.3 H 4.3-11.0 10^3/uL Red Blood Count 3.70 L 3.80-5.11 10^6/uL Hemoglobin 10.5 L 11.5-16.0 g/dL Hematocrit 33 L 35-52 % Mean Corpuscular Volume 90 80-99 fL Mean Corpuscular Hemoglobin 28 25-34 pg Mean Corpuscular Hemoglobin Concent 32 32-36 g/dL Red Cell Distribution Width 13.8 10.0-14.5 % Platelet Count 140 130-400 10^3/uL Mean Platelet Volume 11.7 9.0-12.2 fL Immature Granulocyte % (Auto) 0 % Neutrophils (%) (Auto) 74 42-75 % Lymphocytes (%) (Auto) 17 12-44 % Monocytes (%) (Auto) 9 0-12 % Eosinophils (%) (Auto) 0 0-10 % Basophils (%) (Auto) 0 0-10 % Neutrophils # (Auto) 9.8 H 1.8-7.8 10^3/uL Lymphocytes # (Auto) 2.2 1.0-4.0 10^3/uL Monocytes # (Auto) 1.2 H 0.0-1.0 10^3/uL Eosinophils # (Auto) 0.0 0.0-0.3 10^3/uL Basophils # (Auto) 0.0 0.0-0.1 10^3/uL Immature Granulocyte # (Auto) 0.1 0.0-0.1 10^3/uL Percent Immature Platelet Fraction 5.7 0.0-7.6 % Sodium Level 140 135-145 MMOL/L Potassium Level 4.5 3.6-5.0 MMOL/L Chloride Level 109 H 98-107 MMOL/L Carbon Dioxide Level 16 L 21-32 MMOL/L Anion Gap 15 H 5-14 MMOL/L Blood Urea Nitrogen 33 H 7-18 MG/DL Creatinine 1.42 H 0.60-1.30 MG/DL Estimat Glomerular Filtration Rate 36 BUN/Creatinine Ratio 23 Glucose Level 296 H 70-105 MG/DL Calcium Level 8.7 8.5-10.1 MG/DL Troponin I < 0.028 <0.028 NG/ML B-Type Natriuretic Peptide 226.1 H <100.0 PG/ML Smear Scan YES Lactic Acid Level 3.29 *H 2.15 *H 0.50-2.00 MMOL/L Urine Color YELLOW Urine Clarity CLEAR Urine pH 6.0 5-9 Urine Specific [place] 1.020 1.016-1.022 Urine Protein NEGATIVE NEGATIVE Urine Glucose (UA) NEGATIVE NEGATIVE Urine Ketones NEGATIVE NEGATIVE Urine Nitrite NEGATIVE NEGATIVE Urine Bilirubin NEGATIVE NEGATIVE Urine Urobilinogen 0.2 < = 1.0 MG/DL Urine Leukocyte Esterase 2+ H NEGATIVE Urine RBC (Auto) NEGATIVE NEGATIVE Urine RBC NONE /HPF Urine WBC 25-50 H /HPF Urine Squamous Epithelial Cells 0-2 /HPF Urine Crystals NONE /LPF Urine Bacteria MODERATE H /HPF Urine Casts NONE /LPF Urine Mucus NEGATIVE /LPF Urine Culture Indicated YES My Orders Orders - ALINA DREW Cbc With Automated Diff (05/09/22 14:12) Blood Culture (05/09/22 14:12) Sputum Culture (05/09/22 14:12) Urinalysis (05/09/22 14:12) Urine Culture (05/09/22 14:12) Chest 1 View, Ap/Pa Only (05/09/22 14:12) Ed Iv/Invasive Line Start (05/09/22 14:12) Ed Iv/Invasive Line Start (05/09/22 14:12) Ekg Tracing (05/09/22 14:12) Vital Signs Adult Sepsis Patie Q15M (05/09/22 14:12) O2 (05/09/22 14:12) Remove Rings In Anticipation O (05/09/22 14:12) Lactic Acid Analyzer (05/09/22 14:12) Ns Iv 1000 Ml (Sodium Chloride 0.9%) (05/09/22 14:15) Cefepime Injection (Maxipime Injection) (05/09/22 14:15) Vancomycin Injection (Vancomycin Injecti (05/09/22 14:15) Basic Metabolic Panel (05/09/22 14:12) Bnp Maurice (05/09/22 14:12) Occult Blood Stool (05/09/22 14:48) Ed Iv/Invasive Line Start (05/09/22 14:48) Ns Iv 1000 Ml (Sodium Chloride 0.9%) (05/09/22 15:00) Troponin I Maurice (05/09/22 15:05) Catheter(Urinary) Insert & Ass 03,15 (05/09/22 15:29) Ns Iv 1000 Ml (Sodium Chloride 0.9%) (05/09/22 16:00) Medications Given in ED Current Medications Medications Dose Ordered Sig/Alan Route Start Time Stop Time Status Last Admin Dose Admin Cefepime HCl 1000 mg/Sodium Chloride 50 ml @ 100 mls/hr ONCE ONCE IV 05/09/22 14:15 05/09/22 14:44 DC 05/09/22 14:53 100 MLS/HR Sodium Chloride 1,000 ml @ 250 mls/hr Q4H ONCE IV 05/09/22 16:00 05/09/22 19:59 05/09/22 16:57 250 MLS/HR Vancomycin HCl 1500 mg/Sodium Chloride 500 ml @ 257 mls/hr ONCE ONCE IV 05/09/22 14:15 05/09/22 16:11 DC 05/09/22 16:57 257 MLS/HR Vital Signs/I&O 05/09/22 13:52 Temp 36.4 Pulse 57 Resp 20 B/P (MAP) 78/48 (58) Pulse Ox 93 O2 Delivery Room Air Capillary Refill : Less Than 3 Seconds Blood Pressure Mean: 58 Progress Note #1: Time: 14:49 Progress Note After initial fluids were given blood pressure came up from 80/49->92/53. Patient is in modified-Trendelenburg position. Her pain is mild. We will give her some aspirin to chew and swallow and complete a septic work-up with broad- spectrum antibiotics while we seek the source of her hypotension. Cardiac versus infectious versus other. Her daughters believe she is on Coreg. If she took lisinopril and Coreg and was dehydrated based on her elevated BUN on previous labs plus or minus an infection this could explain her inappropriately slow heart rate with low blood pressure. She did have a drop of 1 mg/dL of hemoglobin which could be within the realm of variability from 1 lab of the next however we did prompt a fecal occult blood test and rectal exam which was unrevealing of new pathology. Fecal occult blood test negative. Progress Note #2: Time: 17:02 Progress Note The patient is still having her dull mild substernal chest pain which may be related to her hypotension. Her troponin is negative both this morning and again now. We will ask cardiology for consult. With her soft blood pressure of 98/54 we will not be giving her any nitroglycerin or morphine. We will continue IV fluids at 250 an hour and appropriate broad-spectrum antibiotics of Rocephin. ECG Initial ECG Impression Date: May 09, 2022 Initial ECG Impression Time: 14:23 Initial ECG Rate: 60 Initial ECG Rhythm: Normal Sinus Initial ECG Intervals: QT (544 ms) Initial ECG Impression: Normal Initial ECG Comparisson: No Previous ECG Available Comment Normal sinus rhythm without clinically relevant ST elevation or depression. Significantly prolonged QTC of 544 Diagnostic Imaging Diagonstic Imaging: Xray Plain Films/CT/US/NM/MRI: chest Comments [facility], [place] NAME: [facility] REC#: [id number] PT STATUS: REG ER : 1934 PHYSICIAN: ALINA DREW MD ADMIT DATE: 05/09/22/ER Draft Date of Exam:05/09/22 CHEST 1 VIEW, AP/PA ONLY Indication: Chest pain and weakness Frontal chest obtained at 2:47 p.m. and compared to same day at 8:02 a.m. Cardiomegaly noted with some bibasilar atelectasis. There is no pneumothorax or gross pleural fluid or consolidation. Impression: Cardiomegaly, poor inspiration and mild bibasilar atelectasis. No overt consolidation or pleural fluid. Dictated on workstation # [id number] Dict: 05/09/22 1453 Trans: 05/09/22 1455 [facility] [id number] Interpreted by: LEV MO MD Electronically signed by: Reviewed: Reviewed by Me Departure Communication (Admissions) Time/Spoke to Admitting Phy: 17:[address] Yanes. 1701: Dr. Yanes agrees to admit the patient with consult to cardiology and will put in queued orders. Impression Primary Impression: Near syncope Additional Impressions: Hypotension Qualified Codes: I95.9 - Hypotension, unspecified UTI (urinary tract infection) Qualified Codes: N30.00 - Acute cystitis without hematuria Severe sepsis Disposition: ADMITTED INPATIENT Condition: Stable Admissions Decision to Admit Reason: Admit from ER (General) Decision to Admit/Date: May 09, 2022 Time/Decision to Admit Time: 17:00 Departure-Patient Inst. Referrals: JOVITA MALONE MD (PCP/Family) Primary Care Physician ALINA DREW May 09, 2022 14:46
--- NOTE | 2022-05-09 14:55 | Diagnostic Imaging Report ---
Indication: Chest pain and weakness Frontal chest obtained at 2:47 p.m. and compared to same day at 8:02 a.m. Cardiomegaly noted with some bibasilar atelectasis. There is no pneumothorax or gross pleural fluid or consolidation. Impression: Cardiomegaly, poor inspiration and mild bibasilar atelectasis. No overt consolidation or pleural fluid. Dictated by: Dictated on workstation # [id number]
[2022-05-09] MEDS ORDERED: NS IV 1000 ML 1,000 ML IV SCH (15:00)
[2022-05-09 15:47] LABS: BILIRUBIN,URINE NEGATIVE (NEGATIVE); CLARITY,URINE CLEAR; COLOR,URINE YELLOW; GLUCOSE, URINE (UA) NEGATIVE (NEGATIVE); KETONES,URINE NEGATIVE (NEGATIVE); LEUKOCYTE ESTERASE ,URINE 2+ (NEGATIVE); NITRITE,URINE NEGATIVE (NEGATIVE); PROTEIN,URINE NEGATIVE (NEGATIVE)
[2022-05-09 15:56] LABS: BACTERIA,URINE MODERATE /HPF; SQUAMOUS EPITHELIAL CELL,UR 0-2 /HPF; WBC,URINE 25-50 /HPF
[2022-05-09] MEDS ORDERED: NS IV 1000 ML 1,000 ML IV ONE (16:00)
--- NOTE | 2022-05-09 17:21 | History & Physical-Hospitalist ---
History of Present Illness HPI/Chief Complaint CC: Syncope with hypotension and UTI HPI: This is an 86yoWF who presented to the [facility] ER after a w/u in [facility] earlier in the day due to dizziness and near syncope. Apparently she was told to hold her BP meds but she reported that she took them when she got home and was heading out on a vacation to [place] when she became so weak she couldn't walk so she came to [facility] ER and was found to have profound hypotension requring aggressive IVF. Currently she is still weak and daughter and GD at bedside. ADmitting to ICU. UTI will be treated with broad spectrum abx. Source: patient, family Exam Limitations: no limitations Date Seen 05/09/22 Time Seen by a Provider: 18:00 Attending Physician Dc Otto MD PCP Admitting Physician: Attending Physician: Referring Physician Date of Admission Home Medications & Allergies Home Medications Reviewed patient Home Medication Reconciliation performed by pharmacy medication reconciliations water restoration technician and/or nursing. Patients Allergies have been reviewed. Allergies Allergies Coded Allergies Sulfa (Sulfonamide Antibiotics) (Unverified Allergy, Severe, CLOSES THROAT, 12/27/18) codeine (Unverified Allergy, Severe, CLOSES THROAT, 12/27/18) Iodinated Contrast Media (Unverified Allergy, Intermediate, HIVES, 12/27/18) lisinopril (Unverified Adverse Reaction, Intermediate, CHRONIC COUGH, 12/27/18) hydrocodone (Unverified Adverse Reaction, Unknown, Hives, 05/09/22) pregabalin (Unverified Adverse Reaction, Unknown, 12/27/18) Past Xzwwymd-Yvoidk-Dpjdit Hx Patient Social History Marrital Status: single Employed/Student: retired Tobacco Use?: No Smoking Status: Former Smoker Substance use?: No Alcohol Use?: No Immunizations Up To Date Date of Influenza Vaccine: Jun 26, 2018 First/Initial COVID19 Vaccinat: 2020 Second COVID19 Vaccination Nabil: 2020 Date of Pneumonia Vaccine: Jun 26, 1999 Seasonal Allergies Seasonal Allergies: No Current Status Advance Directives: No Primary Language: Greenlandic Preferred Spoken Language: Greenlandic Implanted or Applied Medical D: None Past Medical History COPD High Cholesterol, Hypertension Headaches /Migraines Osteoporosis, Arthritis Hypothyroidsim Review of Systems Constitutional: see HPI, dizziness, malaise, weakness EENTM: no symptoms reported Respiratory: dyspnea on exertion Cardiovascular: chest pain Gastrointestinal: no symptoms reported Genitourinary: no symptoms reported Musculoskeletal: no symptoms reported Skin: no symptoms reported Psychiatric/Neurological: No Symptoms Reported All Other Systems Reviewed Negative Unless Noted: Yes Physical Exam Physical Exam Vital Signs Vital Signs - First Documented 05/09/22 05/09/22 05/09/22 13:52 18:10 18:33 Temp 36.4 Pulse 57 Resp 20 B/P (MAP) 78/48 (58) Pulse Ox 93 O2 Delivery Room Air O2 Flow Rate 3.00 FiO2 21 Capillary Refill : Less Than 3 Seconds Height, Weight, BMI Height: 5'7.00" Weight: 180lbs. oz. 81.010255tl; 23.00 BMI Method:Stated General Appearance: No Apparent Distress, Chronically ill, Thin Eyes: Right Eye Normal Inspection, Right Eye PERRL HEENT: PERRL/EOMI, Normal ENT Inspection, Pharynx Normal, Moist Mucous Membranes Neck: Full Range of Motion, Normal Inspection, Non Tender Respiratory: Chest Non Tender, Lungs Clear, Normal Breath Sounds, No Accessory Muscle Use, No Respiratory Distress Cardiovascular: Regular Rate, Rhythm, No Edema, No Gallop, No JVD, No Murmur, Normal Peripheral Pulses Gastrointestinal: Normal Bowel Sounds, No Organomegaly, No Pulsatile Mass, Non Tender, Soft Back: Normal Inspection, No CVA Tenderness, No Vertebral Tenderness Extremity: Normal Capillary Refill, Normal Inspection, Normal Range of Motion, Non Tender, No Calf Tenderness, No Pedal Edema Neurologic/Psychiatric: Alert, Oriented x3, No Motor/Sensory Deficits, Normal Mood/Affect Skin: Normal Color, Warm/Dry Lymphatic: No Adenopathy Results Results/Procedures Labs Laboratory Tests 05/09/22 13:58 Patient resulted labs reviewed. Assessment/Plan Admission Diagnosis Assessment: Hypotension not due to sepsis Dehydration Lactic acidosis UTI HTN as outpatient HLP COPD Hypothyroidism Plan: IV abx empiric IVF ICU Monitor closely Admission Status: Inpatient Order (span 2 midnights) Reason for Inpatient Admission: hypotension with UTI Diagnosis/Problems Diagnosis/Problems (1) Near syncope Status: Acute (2) UTI (urinary tract infection) Status: Acute Qualifiers: Urinary tract infection type: acute cystitis Hematuria presence: without hematuria Qualified Codes: N30.00 - Acute cystitis without hematuria (3) Dehydration Status: Acute (4) Hypotension Status: Acute Qualifiers: Hypotension type: unspecified hypotension type Qualified Codes: I95.9 - Hypotension, unspecified KVNG ELLIS DO May 09, 2022 17:21
[2022-05-09 17:37] LABS: ALBUMIN 3.8 GM/DL (3.2-4.5)
[2022-05-09 17:39] LABS: TOTAL PROTEIN 6.4 GM/DL (6.4-8.2)
[2022-05-09 17:41] LABS: BILIRUBIN,TOTAL 0.5 MG/DL (0.1-1.0)
[2022-05-09 17:45] LABS: BILIRUBIN,DIRECT 0.2 MG/DL (0.0-0.3); BILIRUBIN,INDIRECT 0.3 MG/DL
[2022-05-09] MEDS ORDERED: diphenhydrAMINE 25 MG TAB (BENADRYL) PO PRN (18:00)
[2022-05-09] MEDS ORDERED: ANTACID SUSP 30 ML UDC (MYLANTA) PO PRN (18:00)
[2022-05-09] MEDS ORDERED: CALCIUM CARBONATE 500 MG (TUMS) TAB.CHEW PO PRN (18:00)
[2022-05-09] MEDS ORDERED: ONDANSETRON 4 MG (ZOFRAN) ORAL DISSOLVE TAB PO PRN (18:00)
[2022-05-09] MEDS ORDERED: polyethylene glycoL POWDER 17 GM (MIRALAX) PACK PO PRN (18:00)
[2022-05-09] MEDS ORDERED: morphine INJ 4 MG/ML 1 ML (VIAL/SYRINGE) IV PRN (18:00)
[2022-05-09] MEDS ORDERED: ACETAMINOPHEN 325 MG TABLET PO PRN (18:00)
[2022-05-09] MEDS ORDERED: MELATONIN 3 MG TABLET PO PRN (18:00)
[2022-05-09] MEDS ORDERED: diphenhydrAMINE 50 MG/ML INJ (BENADRYL) IVP PRN (18:00)
[2022-05-09] MEDS ORDERED: MILK OF MAGNESIA 400 MG/5 ML 30 ML UDC PO PRN (18:00)
[2022-05-09] MEDS ORDERED: LACTULOSE SYRUP 10GM/15ML (ENULOSE) 30ML UDC PO PRN (18:00)
[2022-05-09] MEDS ORDERED: ENOXAPARIN 40 MG/0.4 ML (LOVENOX) SYR SC SCH (18:00)
[2022-05-09] MEDS ORDERED: BISACODYL 10 MG SUPP (DULCOLAX) PR PRN (18:00)
[2022-05-09] MEDS ORDERED: ONDANSETRON 4 MG/2 ML (SDV) Z0FRAN IV PRN (18:00)
[2022-05-09] MEDS ORDERED: VANCOMYCIN INJECTION 0.1 MG in NS (IVPB) 250 ML IV SCH (18:00)
[2022-05-09] MEDS ORDERED: ENOXAPARIN INJECTION 30 MG/0.3 ML SYR SC SCH (18:30)
[2022-05-09 18:33] VITALS: BP 78/48
[2022-05-09] MEDS ORDERED: RT-ALBUTEROL SULF 2.5 MG/3 ML PRE-MIX VIAL INH PRN (19:00)
[2022-05-09] MEDS: SENNOSIDES 8.6 MG (SENOKOT) TAB PO SCH (21:00)
[2022-05-09] MEDS: DOCUSATE SODIUM 100 MG (COLACE) CAP PO SCH (21:00)
[2022-05-09] MEDS: RT-ALBUTEROL SULF 2.5 MG/3 ML PRE-MIX VIAL INH SCH (23:28)
[2022-05-10] MEDS ORDERED: CEFEPIME INJECTION 1,000 MG in NS (IVPB) 50 ML IV SCH (03:00)
[2022-05-10] MEDS: NS IV 1000 ML 1,000 ML IV SCH ×3 (05:22→13:07)
[2022-05-10] MEDS ORDERED: POTASSIUM CL 10MEQ/50ML IVPB 50 ML IV SCH (06:00)
[2022-05-10] MEDS ORDERED: KCL 20 MEQ TAB (K-DUR) PO SCH (06:00)
[2022-05-10] MEDS ORDERED: MAGNESIUM 1 GM/100 ML IVPB 100 ML IV SCH (06:00)
[2022-05-10 06:03] LABS: BASOPHILS % (AUTO) 0 % (0-10); EOSINOPHILS # (AUTO) 0.1 10^3/uL (0.0-0.3); EOSINOPHILS % (AUTO) 1 % (0-10); HEMATOCRIT 31 % (35-52); HEMOGLOBIN 9.6 g/dL (11.5-16.0); LYMPHOCYTES % (AUTO) 22 % (12-44); MEAN CORPUSCULAR HEMOGLOBIN 28 pg (25-34); MEAN CORPUSCULAR HGB CONC 31 g/dL (32-36); MEAN CORPUSCULAR VOLUME 92 fL (80-99); MEAN PLATELET VOLUME 11.5 fL (9.0-12.2); MONOCYTES # (AUTO) 0.7 10^3/uL (0.0-1.0); MONOCYTES % (AUTO) 7 % (0-12); NEUTROPHILS # (AUTO) 6.4 10^3/uL (1.8-7.8); NEUTROPHILS % (AUTO) 70 % (42-75); PLATELET COUNT 111 10^3/uL (130-400); WHITE BLOOD COUNT 9.2 10^3/uL (4.3-11.0)
[2022-05-10 06:14] LABS: ALBUMIN 3.1 GM/DL (3.2-4.5); POTASSIUM 3.7 MMOL/L (3.6-5.0)
[2022-05-10 06:17] LABS: TOTAL PROTEIN 5.5 GM/DL (6.4-8.2)
[2022-05-10 06:19] LABS: BILIRUBIN,TOTAL 0.5 MG/DL (0.1-1.0)
[2022-05-10 06:20] LABS: PHOSPHORUS 3.4 MG/DL (2.3-4.7)
[2022-05-10 06:21] LABS: CREATININE SERUM 1.02 MG/DL (0.60-1.30)
[2022-05-10 06:23] LABS: MAGNESIUM 1.7 MG/DL (1.6-2.4)
[2022-05-10] MEDS: RT-ALBUTEROL SULF 2.5 MG/3 ML PRE-MIX VIAL INH SCH ×2 (07:58→21:17)
--- NOTE | 2022-05-10 08:13 | Tele-ICU Consult ---
History of Present Illness History of Present Illness Date Seen by Provider: May 10, 2022 Time Seen by Provider: 08:13 History of Present Illness Available chart/vitals/labs/images reviewed. Video assessment done using telemetry ICU camera, rest of exam as per RN. Discussion with the RN, exam as per RN. Hospital course She is a 86-year-old female with past medical history of hypertension apparently presented to [facility] earlier yesterday due to dizziness and near syncopal episode and she is found to have a borderline blood pressure and she was told to hold off for blood pressure medications. They have checked. Troponin reportedly which was negative. And she went home and subsequently will was a heading out to your vacation meanwhile she became so weak and could not walk and hence she came to the ER and found to have a profound hypotension requiring aggressive fluid management. She also complains of anterior chest wall pain which she did not resolve completely. But her troponin is within normal limits she is feeling somewhat better today. I have ordered a VQ scan as patient has a allergy to contrast media. Allergies and Home Medications Allergies Coded Allergies: Sulfa (Sulfonamide Antibiotics) (Unverified Allergy, Severe, CLOSES THROAT, 12/27/18) codeine (Unverified Allergy, Severe, CLOSES THROAT, 12/27/18) Iodinated Contrast Media (Unverified Allergy, Intermediate, HIVES, 12/27/18) lisinopril (Unverified Adverse Reaction, Intermediate, CHRONIC COUGH, 12/27/18) hydrocodone (Unverified Adverse Reaction, Unknown, Hives, 05/09/22) pregabalin (Unverified Adverse Reaction, Unknown, 12/27/18) Home Medications Amlodipine Besylate 2.5 Mg Tablet, 2.5 MG PO DAILY, (Reported) Carvedilol 25 Mg Tablet, 25 MG PO BID, (Reported) Furosemide 40 Mg Tablet, 40 MG PO DAILY, (Reported) Gabapentin 300 Mg Capsule, 300 MG PO TID, (Reported) Levothyroxine Sodium 150 Mcg Tablet, 150 MCG PO DAILY, (Reported) Meloxicam 7.5 Mg Tablet, 7.5 MG PO DAILY Prescribed by: DANITA GARCIA on 05/09/22 0935 Metformin HCl 1,000 Mg Tablet, 500 MG PO BID, (Reported) Nortriptyline HCl 50 Mg Capsule, 50 MG PO HS, (Reported) Potassium Chloride 20 Meq Tab.er.prt, 20 MEQ PO DAILY, (Reported) Pramipexole Di-HCl 0.25 Mg Tablet, 0.25 MG PO BID, (Reported) Simvastatin 20 Mg Tablet, 20 MG PO DAILY, (Reported) Past Medical/Social/Family Hx Patient Social History Marrital Status: single Employed/Student: retired Tobacco Use?: No Smoking Status: Former Smoker Substance use?: No Alcohol Use?: No Pt stated abuse/neglect: No Immunizations Up To Date Influenza Vaccine Up-to-Date: Yes; Up-to-Date First/Initial COVID19 Vaccinat: 2020 Second COVID19 Vaccination Nabil: 2020 Date of Pneumonia Vaccine: Jun 26, 1999 Current Status status: No Advance Directives: No Communicates: Verbally Primary Language: Cameroonian Preferred Spoken Language: Cameroonian Is interpretation needed?: No Sensory deficits: Vision impairment, Hearing impairment Implanted or Applied Medical D: None Review of Systems Constitutional: weakness Other ROS PER RN Focused Exam Lactate Level 05/09/22 14:20: Lactic Acid Level 3.29*H 05/09/22 16:20: Lactic Acid Level 2.15*H 05/09/22 20:24: Lactic Acid Level 1.70 Height, Weight, BMI Height: 5'7.00" Weight: 180lbs. oz. 81.847288se; 27.68 BMI Method:Stated Time of Focused Exam: 17:02 Exam Exam Patient acknowledged, consented, and participated in this virtual visit which was conducted using real time audio/video Vital Signs Date Time Temp Pulse Resp B/P (MAP) Pulse Ox O2 Delivery O2 Flow Rate FiO2 05/10/22 08:00 66 18 118/71 99 Nasal Cannula 2.00 05/10/22 07:58 96 High Flow N/C 3.00 05/10/22 07:57 37.2 05/10/22 07:00 67 18 119/63 92 Nasal Cannula 2.00 05/10/22 07:00 68 05/10/22 06:00 67 18 121/66 92 Nasal Cannula 2.00 05/10/22 05:00 68 25 117/69 93 Nasal Cannula 2.00 05/10/22 04:00 68 27 120/81 94 Nasal Cannula 2.00 05/10/22 03:19 36.2 Nasal Cannula 2.00 05/10/22 03:13 96 Nasal Cannula 3.00 05/10/22 03:00 68 25 120/64 94 Nasal Cannula 2.00 05/10/22 02:00 68 26 120/68 94 Nasal Cannula 2.00 05/10/22 01:00 72 20 127/67 95 Nasal Cannula 2.00 05/10/22 01:00 80 05/10/22 00:00 72 20 128/68 95 Nasal Cannula 2.00 05/09/22 23:11 36.3 Nasal Cannula 2.00 05/09/22 23:10 96 Nasal Cannula 3.00 05/09/22 23:00 74 20 127/64 95 Nasal Cannula 2.00 05/09/22 22:00 74 23 122/67 96 Nasal Cannula 2.00 05/09/22 21:03 95 High Flow N/C 2.00 05/09/22 21:00 76 18 125/73 95 Nasal Cannula 2.00 05/09/22 20:53 96 High Flow N/C 3.00 05/09/22 20:00 96 Nasal Cannula 3.00 05/09/22 20:00 36.2 Nasal Cannula 3.00 05/09/22 20:00 78 17 127/74 98 Nasal Cannula 3.00 05/09/22 19:00 75 05/09/22 19:00 73 22 123/76 96 Nasal Cannula 3.00 05/09/22 18:33 36.4 57 93 21 05/09/22 18:24 71 05/09/22 18:14 72 25 113/62 90 Nasal Cannula 3.00 05/09/22 18:10 93 High Flow N/C 3.00 05/09/22 18:07 36.4 05/09/22 18:05 36.5 73 20 94/47 93 Room Air 05/09/22 13:52 36.4 57 20 78/48 (58) 93 Room Air I & O 05/10/22 07:00 Intake Total 7200 ml Output Total 1250 ml Balance 5950 ml Height & Weight Height: 5'7.00" Weight: 180lbs. oz. 81.634627cy; 27.68 BMI Method:Stated General Appearance: No Apparent Distress, Chronically ill, Thin HEENT: PERRL/EOMI, Normal ENT Inspection, Pharynx Normal, Moist Mucous Membranes Neck: Full Range of Motion, Normal Inspection, Non Tender Respiratory: Chest Non Tender, Lungs Clear, Normal Breath Sounds, No Accessory Muscle Use, No Respiratory Distress Cardiovascular: Regular Rate, Rhythm, No Edema, No Gallop, No JVD, No Murmur, Normal Peripheral Pulses Capillary Refill: Less Than 3 Seconds Peripheral Pulses: 2+ Radial Pulses (R), 2+ Radial Pulses (L) Extremity: Normal Capillary Refill, Normal Inspection, Normal Range of Motion, Non Tender, No Calf Tenderness, No Pedal Edema Neurologic/Psychiatric: Alert, Oriented x3, No Motor/Sensory Deficits, Normal Mood/Affect Skin: Normal Color, Warm/Dry Lymphatic: No Adenopathy Other comments PE PER RN Results Lab Laboratory Tests 05/09/22 13:58 05/10/22 05:55 Assessment/Plan Assessment/Plan 1. Hypotension due to severe dehydration 2. Possible urinary tract infection 3. Atypical chest pain etiology not clear. 4. History of hypertension currently hypotensive. Recommendations 1. Hydrate patient with normal saline 2. DVT prophylaxis and ulcer prophylaxis 3. IV antibiotics per primary care physician 4. I have ordered a D-dimer which is within normal limit but anyways I have ordered also VQ scan which is awaiting 5. Readjust her blood pressure medications based on her final blood pressure readings Critical Care: Critically Ill Patient Time spent with patient (mins): 25 BIANCA MACHUCA MD May 10, 2022 08:13
--- NOTE | 2022-05-10 09:05 | Diagnostic Imaging Report ---
INDICATION: Follow-up atypical chest pain and dehydration. TIME OF EXAM: 5:18 AM Correlation is made with prior chest from 05/09/2022. FINDINGS: Heart size is stable. Areas of atelectasis at both bases persists, left greater. There appears to be a small amount of pleural fluid on the left. Mid and upper lung saldana are clear. There is no pneumothorax. IMPRESSION: Cardiomegaly and bibasilar atelectasis or infiltrate, left greater. Left has increased when compared with study one day earlier. Dictated by: Dictated on workstation # [id number]
[2022-05-10] MEDS: SENNOSIDES 8.6 MG (SENOKOT) TAB PO SCH ×2 (09:34→20:59)
[2022-05-10] MEDS: DOCUSATE SODIUM 100 MG (COLACE) CAP PO SCH ×2 (09:34→20:59)
[2022-05-10] MEDS: MAGNESIUM 1 GM/100 ML IVPB 100 ML IV SCH ×2 (09:35→10:41)
--- NOTE | 2022-05-10 11:47 | Progress Note - Hospitalist ---
Subjective HPI/CC On Admission Date Seen by Provider: May 10, 2022 Time Seen by Provider: 11:45 CC: Syncope with hypotension and UTI HPI: This is an 86yoWF who presented to the [facility] ER after a w/u in [facility] earlier in the day due to dizziness and near syncope. Apparently she was told to hold her BP meds but she reported that she took them when she got home and was heading out on a vacation to [place] when she became so weak she couldn't walk so she came to [facility] ER and was found to have profound hypotension requring aggressive IVF. Currently she is still weak and daughter and GD at bedside. ADmitting to ICU. UTI will be treated with broad spectrum abx. Subjective/Events-last exam Patient feels better Cardiology will be consulted for chest pain ECHO ordered PT OT ordered Moving to 4th floor CXR reveals LLL PNA No pain elsewhere Family at bedside Review of Systems General: Fatigue, Malaise Pulmonary: Dyspnea Cardiovascular: Chest Pain Focused Exam Lactate Level 05/09/22 14:20: Lactic Acid Level 3.29*H 05/09/22 16:20: Lactic Acid Level 2.15*H 05/09/22 20:24: Lactic Acid Level 1.70 Time of Focused Exam: 17:02 Objective Exam Vital Signs Vital Signs Date Time Temp Pulse Resp B/P (MAP) Pulse Ox O2 Delivery O2 Flow Rate FiO2 05/10/22 19:35 37.0 75 18 151/72 (98) 91 Nasal Cannula 2.00 05/09/22 18:33 21 Capillary Refill : Less Than 3 Seconds General Appearance: No Apparent Distress, WD/WN, Chronically ill, Thin Respiratory: Lungs Clear, Normal Breath Sounds Cardiovascular: Regular Rate, Rhythm Neurologic/Psychiatric: Alert, Oriented x3, No Motor/Sensory Deficits, Normal Mood/Affect Results/Procedures Lab Laboratory Tests 05/10/22 05:55 Patient resulted labs reviewed. Assessment/Plan Assessment and Plan Assess & Plan/Chief Complaint Assessment: Hypotension not due to sepsis Dehydration New PNA on CXR today Lactic acidosis UTI HTN as outpatient HLP COPD Hypothyroidism Chest pain Plan: IV abx empiric IVF 4th floor Monitor closely Cardiology consult Diagnosis/Problems Diagnosis/Problems (1) Near syncope Status: Acute (2) UTI (urinary tract infection) Status: Acute Qualifiers: Urinary tract infection type: acute cystitis Hematuria presence: without hematuria Qualified Codes: N30.00 - Acute cystitis without hematuria (3) Dehydration Status: Acute (4) Hypotension Status: Acute Qualifiers: Hypotension type: unspecified hypotension type Qualified Codes: I95.9 - Hypotension, unspecified KVNG ELLIS DO May 10, 2022 11:47
[2022-05-10] MEDS ORDERED: SIMV20TA26 PO (12:14)
[2022-05-10] MEDS ORDERED: AMLO2.5T4 PO (12:14)
[2022-05-10] MEDS ORDERED: PRAM0.257 PO (12:14)
[2022-05-10] MEDS ORDERED: METF-399 PO (12:14)
[2022-05-10] MEDS ORDERED: LEVO150T6 PO (12:14)
[2022-05-10] MEDS ORDERED: NORT50CA PO (12:14)
[2022-05-10] MEDS ORDERED: POTA-179 PO (12:14)
[2022-05-10] MEDS ORDERED: TOPI50TA13 PO (12:14)
[2022-05-10] MEDS ORDERED: GABA300C PO (12:14)
[2022-05-10] MEDS ORDERED: CARV25TA PO (12:14)
[2022-05-10] MEDS ORDERED: FURO40TA4 PO (12:14)
--- NOTE | 2022-05-10 12:26 | Physical Therapy Evaluation ---
PT Evaluation-General Medical Diagnosis Admission Date May 09, 2022 at 17:15 Medical Diagnosis: suspected sepsis Onset Date: May 09, 2022 Therapy Diagnosis Therapy Diagnosis: weakness Height/Weight Height (Feet): 5 Height (Inches): 7.00 Weight (Pounds): 180 Precautions Precautions/Isolations: Fall Prevention, Standard Precautions Weight Bear Status Full Weight Bearing Full Weight Bearing Referral Physician: Joaquín Reason for Referral: Evaluation/Treatment Social History Current Living Status: Children Prior Prior Level of Function SCALE: Activities may be completed with or without assistive devices. 1-Etvseqfnbv-hixlcls completes the activity by him/herself with no assistance from a helper. 5-Set-up or Clean-up Assistance-helper sets up or cleans up; patient completes activity. [place] assists only prior to or following the activity. 4-Supervision or Touching Assistance-helper provides verbal cues and/or touching/steadying and/or contact guard assistance as patient completes activity. Assistance may be provided throughout the activity or intermittently. 3-Partial/Moderate Assistance-helper does LESS THAN HALF the effort. [place] lifts, holds or supports trunk or limbs, but provides less than half the effort. 2-Substantial/Maximal Assistance-helper does MORE THAN HALF the effort. [place] lifts or holds trunk or limbs and provides more than half the effort. 7-Agvpmxzhr-ijnqdp does ALL the effort. Patient does none of the effort to complete the activity. Or, the assistance of 2 or more helpers is required for the patient to complete the activity. If activity was not attempted, code reason: 7-Patient Refused. 9-Not Applicable-not attempted and the patient did not perform the activity before the current illness, exacerbation or injury. 10-Not Attempted due to Environmental Limitations-(lack of equipment, weather restraints, etc.). 88-Not Attempted due to Medical Conditions or Safety Concerns. Bed Mobility: 6 Transfers (B,C,W/C): 6 Gait: 6 Stairs: 6 Indoor Mobility (Ambulation): Independent Stairs: Independent PT Evaluation-Current Subjective The patient states that she is really weak and doesn't feel well. ROM/Strength Strength Lower Extremities 3+/5 grossly Transfers Roll Left to Right (QC): 4 Sit to Lying (QC): 4 Lying to Sitting/Side of Bed(Q: 4 Sit to Stand (QC): 4 Gait Mode of Locomotion: Walk Walk 10 feet (QC): 88 Walk 50 ft with 2 Turns(QC): 88 Walk 150 ft (QC): 88 Distance: 0 Gait Assistive Device: FWW Balance Sitting Static: Fair Sitting Dynamic: Fair Standing Static: Poor Standing Dynamic: Poor Assessment/Needs The patient has significant weakness and difficulty with functional mobility. She has significant endurance limitations. Rehab Potential: Good PT Short Term Goals Short Term Goals Time Frame: May 17, 2022 Roll Left & Right: 5 Sit to lyin Lying to sitting on side of be: 5 Sit to stand: 5 Chair/hrw-rn-wdzye transfer: 5 Toilet transfer: 5 Car transfer: 5 Walk 10 feet: 5 Walk 50 feet with two turns: 5 Walk 150 feet: 5 Walking 10ft on uneven surface: 5 1 step (curb): 5 4 steps: 5 12 steps: 5 Picking up objects: 5 PT Escort Vehicle Driver Goals Escort Vehicle Driver Goals PT Retirement Goals Time Frame: May 24, 2022 Roll Left & Right (QC): 6 Sit to Lying (QC): 6 Lying-Sitting on Side/Bed(QC): 6 Sit to Stand (QC): 6 Chair/Rcg-zi-Vtwas Xfer(QC): 6 Toilet Transfer (QC): 6 Car Transfer (QC): 6 Does the Patient Walk: Yes Walk 10 feet (QC): 6 Walk 50ft with 2 Turns (QC): 6 Walk 150 ft (QC): 6 Walking 10ft on Uneven Surface: 6 1 Step (curb) (QC): 6 4 Steps (QC): 6 12 Steps (QC): 6 Picking up an Object (QC): 6 PT Plan Problem List Problem List: Activity Tolerance, Functional Strength, Balance, Gait, Transfer, Bed Mobility Treatment/Plan Treatment Plan: Continue Plan of Care Treatment Plan: Bed Mobility, Education, Functional Activity Nita, Functional Strength, Gait, Safety, Therapeutic Exercise, Transfers Treatment Duration: May 24, 2022 Frequency: 11 times per week Estimated Hrs Per Day: .5 hour per day Time/GCodes Time In: 1150 Time Out: 1210 Total Billed Treatment Time: 20 Total Billed Treatment 1, EV low complexity x 20 LAURA RAMÍREZ PT May 10, 2022 12:25
[2022-05-10] MEDS: CEFEPIME INJECTION 1,000 MG in NS (IVPB) 50 ML IV SCH ×2 (12:34→19:27)
--- NOTE | 2022-05-10 15:01 | Consultation-Cardiology ---
HPI-Cardiology Cardiology Consultation: Date of Consultation 05/10/22 Time Seen by a Provider: 14:00 Date of Admission Attending Physician Dc Otto MD Admitting Physician Admitting Physician: Augusta Yanes DO Attending Physician: Augusta Yanes DO Consulting Physician CHUCHO POWERS MD, MA, FACP, FACC, FSCAI, CCDS Physician requesting Card consult: Dr Yanes HPI: Chief Complaint: Marked weakness 86 yo woman admitted to Dr Yanes on 05/09/22 with marked gen weakness. Diagnosed with UTI. Was also hypotensive. Now feels better. Report chest discomfort, transthoracic, mild, present continuously for nearly 36 hours, w/o radiation, worse with inspiration, w/o associated symptoms, never experienced before. Den ies palp or syncope or swelling Review of Systems-Cardiology Review of Systems Constitutional: malaise, tiredness; No weight loss, No weight gain Eyes: No vision change Ears/Nose/Throat: No ear discharge, No nasal drainage, No recent hearing loss Respiratory: As described under HPI Cardiovascular: As described under HPI Gastrointestinal: No diarrhea, No nausea, No vomiting Genitourinary: No dysuria, No hematuria, No urine frequency changes Musculoskeletal: back pain (chronic) Skin: No rash, No ulcerations Psychiatric/Neurological: No seizure, No focal weakness, No syncope Hematologic: No bleeding abnormalities All Other Systems Reviewed Negative Unless Noted: Yes ADH-Doquuz-Pfumdg Hx Patient Social History Marrital Status: single Employed/Student: retired Smoking Status: Former Smoker Have you traveled recently?: No Alcohol Use?: No Pt feels they are or have been: No Immunizations Up To Date Date of Pneumonia Vaccine: Jun 26, 1999 Date of Influenza Vaccine: Jun 26, 2018 Past Medical History PMH As described under Assessment. Family Medical History Family Medical History: No fam h/o early CAD or SCD Allergies and Home Medications Allergies Coded Allergies: Sulfa (Sulfonamide Antibiotics) (Unverified Allergy, Severe, CLOSES THROAT, 12/27/18) codeine (Unverified Allergy, Severe, CLOSES THROAT, 12/27/18) Iodinated Contrast Media (Unverified Allergy, Intermediate, HIVES, 12/27/18) lisinopril (Unverified Adverse Reaction, Intermediate, CHRONIC COUGH, 12/27/18) hydrocodone (Unverified Adverse Reaction, Unknown, Hives, 05/09/22) pregabalin (Unverified Adverse Reaction, Unknown, 12/27/18) Patient Home Medication List Home Medication List Reviewed: Yes Amlodipine Besylate (Amlodipine Besylate) 2.5 Mg Tablet, 2.5 MG PO DAILY, (Reported) Entered as Reported by: MJ MARQUEZ on 05/10/221213 Last Action: Reviewed Carvedilol (Carvedilol) 25 Mg Tablet, 25 MG PO BID, (Reported) Entered as Reported by: MJ MARQUEZ on 05/10/221213 Last Action: Reviewed Furosemide (Furosemide) 40 Mg Tablet, 40 MG PO DAILY, (Reported) Entered as Reported by: MJ MARQUEZ on 05/10/221213 Last Action: Reviewed Gabapentin (Neurontin) 300 Mg Capsule, 300 MG PO TID, (Reported) Entered as Reported by: MJ MARQUEZ on 05/10/221213 Last Action: Reviewed Levothyroxine Sodium (Levothyroxine Sodium) 150 Mcg Tablet, 150 MCG PO DAILY, (Reported) Entered as Reported by: MJ MARQUEZ on 05/10/221213 Last Action: Reviewed Meloxicam (Meloxicam) 7.5 Mg Tablet, 7.5 MG PO DAILY Prescribed by: DANITA GARCIA on 05/09/22 0935 Metformin HCl (Metformin HCl) 1,000 Mg Tablet, 500 MG PO BID, (Reported) Entered as Reported by: MJ MARQUEZ on 05/10/221213 Last Action: Reviewed Nortriptyline HCl (Nortriptyline HCl) 50 Mg Capsule, 50 MG PO HS, (Reported) Entered as Reported by: MJ MARQUEZ on 05/10/221213 Last Action: Reviewed Potassium Chloride (Potassium Chloride) 20 Meq Tab.er.prt, 20 MEQ PO DAILY, (Reported) Entered as Reported by: MJ MARQUEZ on 05/10/221213 Last Action: Reviewed Pramipexole Di-HCl (Pramipexole Dihydrochloride) 0.25 Mg Tablet, 0.25 MG PO BID, (Reported) Entered as Reported by: MJ MARQUEZ on 05/10/221213 Last Action: Reviewed Simvastatin (Simvastatin) 20 Mg Tablet, 20 MG PO DAILY, (Reported) Entered as Reported by: MJ MARQUEZ on 05/10/221213 Last Action: Reviewed Topiramate (Topiramate) 50 Mg Tablet, 50 MG PO, (Reported) Entered as Reported by: MJ MARQUEZ on 05/10/221213 Last Action: Reviewed Physical Exam-Cardiology Physical Exam Vital Signs/I&O 05/10/22 05/10/22 05/10/22 05/10/22 03:00 03:13 03:19 04:00 Temp 36.2 Pulse 68 68 Resp 25 27 B/P (MAP) 120/64 120/81 Pulse Ox 94 96 94 O2 Delivery Nasal Cannula Nasal Cannula Nasal Cannula Nasal Cannula O2 Flow Rate 2.00 3.00 2.00 2.00 05/10/22 05/10/22 05/10/22 05/10/22 05:00 06:00 07:00 07:00 Pulse 68 67 68 67 Resp 25 18 18 B/P (MAP) 117/69 121/66 119/63 Pulse Ox 93 92 92 O2 Delivery Nasal Cannula Nasal Cannula Nasal Cannula O2 Flow Rate 2.00 2.00 2.00 05/10/22 05/10/22 05/10/22 05/10/22 07:57 07:58 08:00 08:00 Temp 37.2 Pulse 66 Resp 18 B/P (MAP) 118/71 Pulse Ox 96 99 94 O2 Delivery High Flow N/C Nasal Cannula Nasal Cannula O2 Flow Rate 3.00 2.00 3.00 05/10/22 05/10/22 05/10/22 05/10/22 09:00 10:00 11:00 11:59 Temp 37.5 Pulse 70 70 67 Resp 16 B/P (MAP) 120/82 113/59 122/67 Pulse Ox 93 93 93 O2 Delivery Nasal Cannula Nasal Cannula Nasal Cannula O2 Flow Rate 2.00 2.00 2.00 05/10/22 05/10/22 05/10/22 05/10/22 12:00 12:00 12:53 13:00 Pulse 75 71 74 Resp 14 26 B/P (MAP) 120/62 115/92 Pulse Ox 94 90 93 O2 Delivery Nasal Cannula Nasal Cannula Nasal Cannula O2 Flow Rate 3.00 2.00 2.00 05/10/22 14:39 Temp 37.2 Pulse 79 Resp 18 B/P (MAP) 130/90 Pulse Ox 91 O2 Delivery Nasal Cannula O2 Flow Rate 2.00 05/10/22 00:00 Intake Total 5750 ml Output Total 700 ml Balance 5050 ml Capillary Refill : Less Than 3 Seconds Constitutional: AAO x 3, well-developed, well-nourished HEENT: discharge, hearing is well preserved; No xanthelasmas are seen Neck: carotid pulses are 2 + bilaterally, with good upstrokes Respiratory: No accessory muscle use; other (fair to good, bilateral air entry) Cardiovascular: S1 and S2, systolic murmur (soft AUTUMN at card base) Gastrointestinal: No tender; soft; No guarding, No rebound; audible bowel sounds Extremities: No clubbing, No cyanosis, No significant edema Neurologic/Psychiatric: oriented x 3, other (moves all limbs) Skin: normal color, warm/dry Data Review Labs Laboratory Tests 05/09/22 15:39: Urine Color YELLOW, Urine Clarity CLEAR, Urine pH 6.0, Urine Specific Lyman 1.020, Urine Protein NEGATIVE, Urine Glucose (UA) NEGATIVE, Urine Ketones NEGATIVE, Urine Nitrite NEGATIVE, Urine Bilirubin NEGATIVE, Urine Urobilinogen 0.2, Urine Leukocyte Esterase 2+H, Urine RBC (Auto) NEGATIVE, Urine RBC NONE, Urine WBC 25-50H, Urine Squamous Epithelial Cells 0-2, Urine Crystals NONE, Urine Bacteria MODERATEH, Urine Casts NONE, Urine Mucus NEGATIVE, Urine Culture Indicated YES 05/09/22 16:20: Lactic Acid Level 2.15*H 05/09/22 20:24: Lactic Acid Level 1.70 05/10/22 05:00: D-Dimer 0.31 05/10/22 05:55: White Blood Count 9.2, Red Blood Count 3.40L, Hemoglobin 9.6L, Hematocrit 31L, Mean Corpuscular Volume 92, Mean Corpuscular Hemoglobin 28, Mean Corpuscular Hemoglobin Concent 31L, Red Cell Distribution Width 14.3, Platelet Count 111L, Mean Platelet Volume 11.5, Immature Granulocyte % (Auto) 0, Neutrophils (%) (Auto) 70, Lymphocytes (%) (Auto) 22, Monocytes (%) (Auto) 7, Eosinophils (%) (Auto) 1, Basophils (%) (Auto) 0, Neutrophils # (Auto) 6.4, Lymphocytes # (Auto) 2.0, Monocytes # (Auto) 0.7, Eosinophils # (Auto) 0.1, Basophils # (Auto) 0.0, Immature Granulocyte # (Auto) 0.0, Sodium Level 140, Potassium Level 3.7, Chloride Level 114H, Carbon Dioxide Level 16L, Anion Gap 10, Blood Urea Nitrogen 27H, Creatinine 1.02, Estimat Glomerular Filtration Rate 53, BUN/Creatinine Ratio 26, Glucose Level 160H, Calcium Level 8.0L, Corrected Calcium 8.7, Phosphorus Level 3.4, Magnesium Level 1.7, Total Bilirubin 0.5, Aspartate Amino Transf (AST/SGOT) 39H, Alanine Aminotransferase (ALT/SGPT) 44, Alkaline Ph osphatase 49, Troponin I < 0.028, Total Protein 5.5L, Albumin 3.1L Laboratory Tests 05/09/22 13:58 05/10/22 05:55 A/P-Cardiology Assessment/Admission Diagnosis UTI with sepsis and shock, improving Non-specific, pleuritic chest discomfort w/o any evidence of ACS - troponin negative - Echo on 05/10/22: LVEF 60-65%, mod conc LVH, grade 1 quach dysfunction, mod enlargement of both atria, PSP 45-50 mmHg DM II Hypertension Discussion and Recomendations * Med svce to treat UTI and sepsis * Treat hypertension and DM II (Med svce) * Risk factor mod discussed * Stress test when clinically stable (given nonspecific symptoms in the setting of multiple cor risk factors) CHUCHO POWERS MD [facility] CCDS May 10, 2022 15:01
[2022-05-10] MEDS: ENOXAPARIN 40 MG/0.4 ML (LOVENOX) SYR SC SCH (17:56)
[2022-05-10] MEDS: VANCOMYCIN INJECTION 1,000 MG in NS (IVPB) 250 ML IV SCH (18:01)
--- NOTE | 2022-05-10 18:23 | Diagnostic Imaging Report ---
Comparison: Chest radiograph performed the same date. Clinical History: Chest pain. Evaluate for pulmonary emboli. Procedure: Perfusion study is performed with 5.39 mCi Tc 99m MAA. Findings: There is symmetric perfusion in both lungs. No focal defects are identified. Impression: The findings are of low probability for pulmonary embolism. Dictated by: Dictated on workstation # [id number]
[2022-05-10 19:35] VITALS: BP 151/72
[2022-05-11] VITALS: BP 148/72
[2022-05-11] MEDS: NS IV 1000 ML 1,000 ML IV SCH (03:48)
[2022-05-11] MEDS: CEFEPIME INJECTION 1,000 MG in NS (IVPB) 50 ML IV SCH ×3 (03:49→18:48)
[2022-05-11 04:00] VITALS: BP 130/62
[2022-05-11 06:24] LABS: EOSINOPHILS # (AUTO) 0.3 10^3/uL (0.0-0.3); MEAN CORPUSCULAR HEMOGLOBIN 28 pg (25-34); MEAN CORPUSCULAR HGB CONC 31 g/dL (32-36); NEUTROPHILS % (AUTO) 67 % (42-75)
[2022-05-11 06:26] LABS: BASOPHILS # (AUTO) 0.1 10^3/uL (0.0-0.1); BASOPHILS % (AUTO) 1 % (0-10); EOSINOPHILS % (AUTO) 4 % (0-10); HEMATOCRIT 30 % (35-52); LYMPHOCYTES # (AUTO) 1.6 10^3/uL (1.0-4.0); LYMPHOCYTES % (AUTO) 20 % (12-44); MEAN CORPUSCULAR VOLUME 92 fL (80-99); MEAN PLATELET VOLUME 11.7 fL (9.0-12.2); MONOCYTES # (AUTO) 0.6 10^3/uL (0.0-1.0); MONOCYTES % (AUTO) 8 % (0-12); NEUTROPHILS # (AUTO) 5.4 10^3/uL (1.8-7.8); PLATELET COUNT 118 10^3/uL (130-400)
--- NOTE | 2022-05-11 06:43 | Progress Note - Hospitalist ---
Subjective HPI/CC On Admission Date Seen by Provider: May 11, 2022 Time Seen by Provider: 11:30 CC: Syncope with hypotension and UTI HPI: This is an 86yoWF who presented to the [facility] after a w/u in [facility] earlier in the day due to dizziness and near syncope. Apparently she was told to hold her BP meds but she reported that she took them when she got home and was heading out on a vacation to [place] when she became so weak she couldn't walk so she came to [facility] ER and was found to have profound hypotension requring aggressive IVF. Currently she is still weak and daughter and GD at bedside. ADmitting to ICU. UTI will be treated with broad spectrum abx. Subjective/Events-last exam Doing better today Cardiology appreciated ECHO completed Troponin negative PT OT ordered DC catheter and DC IVF Review of Systems General: Fatigue, Malaise Pulmonary: Dyspnea Focused Exam Lactate Level 05/09/22 14:20: Lactic Acid Level 3.29*H 05/09/22 16:20: Lactic Acid Level 2.15*H 05/09/22 20:24: Lactic Acid Level 1.70 Time of Focused Exam: 17:02 Objective Exam Vital Signs Vital Signs Date Time Temp Pulse Resp B/P (MAP) Pulse Ox O2 Delivery O2 Flow Rate FiO2 05/11/22 15:26 37.0 75 24 172/82 (112) 92 Nasal Cannula 2.00 05/09/22 18:33 21 Capillary Refill : Less Than 3 Seconds General Appearance: No Apparent Distress, WD/WN, Chronically ill Respiratory: Lungs Clear, Normal Breath Sounds Cardiovascular: Regular Rate, Rhythm Neurologic/Psychiatric: Alert, Oriented x3, No Motor/Sensory Deficits, Normal Mood/Affect Results/Procedures Lab Laboratory Tests 05/11/22 05:49 Patient resulted labs reviewed. Assessment/Plan Assessment and Plan Assess & Plan/Chief Complaint Assessment: Hypotension not due to sepsis Dehydration New PNA on CXR today Lactic acidosis UTI HTN as outpatient HLP COPD Hypothyroidism Chest pain Plan: IV abx empiric IVF 4th floor Monitor closely Cardiology consult DC catheter DC IVF Critical Care Critically Ill Patient Diagnosis/Problems Diagnosis/Problems (1) Near syncope Status: Acute (2) UTI (urinary tract infection) Status: Acute Qualifiers: Urinary tract infection type: acute cystitis Hematuria presence: without hematuria Qualified Codes: N30.00 - Acute cystitis without hematuria (3) Dehydration Status: Acute (4) Hypotension Status: Acute Qualifiers: Hypotension type: unspecified hypotension type Qualified Codes: I95.9 - Hypotension, unspecified KVNG ELLIS DO May 11, 2022 06:43
[2022-05-11 06:44] LABS: POTASSIUM 3.5 MMOL/L (3.6-5.0)
[2022-05-11 06:45] LABS: CALCIUM 8.1 MG/DL (8.5-10.1)
[2022-05-11 06:46] LABS: TOTAL PROTEIN 5.6 GM/DL (6.4-8.2)
[2022-05-11 06:48] LABS: BILIRUBIN,TOTAL 0.6 MG/DL (0.1-1.0)
[2022-05-11 06:50] LABS: CREATININE SERUM 0.87 MG/DL (0.60-1.30)
[2022-05-11] MEDS: RT-ALBUTEROL SULF 2.5 MG/3 ML PRE-MIX VIAL INH SCH ×2 (06:50→22:34)
[2022-05-11 06:53] LABS: MAGNESIUM 2.1 MG/DL (1.6-2.4)
[2022-05-11 07:35] VITALS: BP 136/67
[2022-05-11] MEDS: SENNOSIDES 8.6 MG (SENOKOT) TAB PO SCH ×2 (08:32→22:24)
[2022-05-11] MEDS: DOCUSATE SODIUM 100 MG (COLACE) CAP PO SCH ×2 (08:32→22:23)
[2022-05-11 11:32] VITALS: BP 167/77
[2022-05-11] MEDS ORDERED: FUROSEMIDE 40 MG/4 ML INJ (LASIX) IVP ONE (12:30)
--- NOTE | 2022-05-11 15:04 | Progress Note - Cardiology ---
Cardiology SOAP Progress Note Subjective: No cp or palp or syncope No n/v/d No shortness of breath at rest Gen weakness present, improving Objective: I&O/Vital Signs 05/11/22 05/11/22 05/11/22 05/11/22 04:00 06:50 07:35 08:00 Temp 37.4 37.4 Pulse 76 82 Resp 20 22 B/P (MAP) 130/62 (84) 136/67 (90) Pulse Ox 93 93 95 O2 Delivery Nasal Cannula High Flow N/C Nasal Cannula Nasal Cannula O2 Flow Rate 3.00 2.00 3.00 3.00 05/11/22 11:32 Temp 37.0 Pulse 78 Resp 18 B/P (MAP) 167/77 (107) Pulse Ox 92 O2 Delivery Nasal Cannula O2 Flow Rate 2.00 05/11/22 00:00 Intake Total 490 ml Output Total 450 ml Balance 40 ml Weight (Pounds): 180 Weight (Calculated Kilograms): 81.073493 Constitutional: AAO x 3, well-developed, well-nourished Respiratory: No accessory muscle use; other (fair to good, bilateral air entry) Cardiovascular: S1 and S2, systolic murmur (soft AUTUMN at card base) Gastrointestional: No tender; soft; No guarding, No rebound; audible bowel sounds Extremities: No clubbing, No cyanosis, No significant edema Neurologic/Psychiatric: oriented x 3, other (moves all limbs) Skin: normal color, warm/dry Results/Procedures: Labs Laboratory Tests 05/11/22 05:49: White Blood Count 8.0, Red Blood Count 3.22L, Hemoglobin 9.0L, Hematocrit 30L, Mean Corpuscular Volume 92, Mean Corpuscular Hemoglobin 28, Mean Corpuscular Hemoglobin Concent 31L, Red Cell Distribution Width 14.5, Platelet Count 118L, Mean Platelet Volume 11.7, Immature Granulocyte % (Auto) 1, Neutrophils (%) (Auto) 67, Lymphocytes (%) (Auto) 20, Monocytes (%) (Auto) 8, Eosinophils (%) (Auto) 4, Basophils (%) (Auto) 1, Neutrophils # (Auto) 5.4, Lymphocytes # (Auto) 1.6, Monocytes # (Auto) 0.6, Eosinophils # (Auto) 0.3, Basophils # (Auto) 0.1, Immature Granulocyte # (Auto) 0.0, Percent Immature Platelet Fraction 4.4, Sodium Level 143, Potassium Level 3.5L, Chloride Level 118H, Carbon Dioxide Level 15L, Anion Gap 10, Blood Urea Nitrogen 19H, Creatinine 0.87, Estimat Glomerular Filtration Rate 64, BUN/Creatinine Ratio 22, Glucose Level 160H, Calcium Level 8.1L, Corrected Calcium 8.9, Magnesium Level 2.1, Total Bilirubin 0.6, Aspartate Amino Transf (AST/SGOT) 18, Alanine Aminotransferase (ALT/SGPT) 35, Alkaline Phosphatase 55, Total Protein 5.6L, Albumin 3.0L Microbiology 05/09/22 MRSA Screen - Final, Complete MRSA not isolated 05/09/22 Urine Culture - Final, Complete NO GROWTH 05/09/22 Blood Culture - Preliminary, Resulted No growth Laboratory Tests 05/10/22 05:55 05/11/22 05:49 A/P: Assessment: UTI with sepsis and shock, improving Non-specific, pleuritic chest discomfort w/o any evidence of ACS - troponin negative - Echo on 05/10/22: LVEF 60-65%, mod conc LVH, grade 1 quach dysfunction, mod enlargement of both atria, PSP 45-50 mmHg DM II Hypertension Mild hypokalemia Plan: * Med svce to treat UTI and sepsis * Treat hypertension and DM II (Med svce) * Risk factor mod discussed * Stress test when clinically stable (given nonspecific symptoms in the setting of multiple cor risk factors) * Saturnino Cruz Follow labs CHUCHO POWERS MD FACP FAC CCDS May 11, 2022 15:04
[2022-05-11] MEDS ORDERED: KCL 20 MEQ TAB (K-DUR) PO ONE (15:15)
[2022-05-11 15:26] VITALS: BP 172/82
[2022-05-11] MEDS: amLODIPine 2.5MG (NORVASC) TAB PO SCH (16:37)
[2022-05-11] MEDS: AtorvaSTATin TABLET 10 MG TABLET PO SCH (16:37)
[2022-05-11] MEDS: ENOXAPARIN 40 MG/0.4 ML (LOVENOX) SYR SC SCH (17:47)
[2022-05-11] MEDS: VANCOMYCIN INJECTION 1,000 MG in NS (IVPB) 250 ML IV SCH (17:47)
[2022-05-11 19:25] VITALS: BP 134/65
[2022-05-11] MEDS: PRAMIPEXOLE 0.125 MG (MIRAPEX) TABLET PO SCH (22:24)
[2022-05-12] VITALS: BP 126/73
[2022-05-12] MEDS: CEFEPIME INJECTION 1,000 MG in NS (IVPB) 50 ML IV SCH ×2 (03:35→12:02)
[2022-05-12 03:54] VITALS: BP 121/93
[2022-05-12 06:00] LABS: EOSINOPHILS # (AUTO) 0.4 10^3/uL (0.0-0.3); MEAN CORPUSCULAR VOLUME 88 fL (80-99); NEUTROPHILS % (AUTO) 68 % (42-75)
[2022-05-12 06:02] LABS: BASOPHILS % (AUTO) 0 % (0-10); EOSINOPHILS % (AUTO) 4 % (0-10); HEMATOCRIT 28 % (35-52); LYMPHOCYTES # (AUTO) 1.5 10^3/uL (1.0-4.0); LYMPHOCYTES % (AUTO) 19 % (12-44); MEAN CORPUSCULAR HEMOGLOBIN 28 pg (25-34); MEAN CORPUSCULAR HGB CONC 32 g/dL (32-36); MEAN PLATELET VOLUME 11.7 fL (9.0-12.2); MONOCYTES # (AUTO) 0.6 10^3/uL (0.0-1.0); MONOCYTES % (AUTO) 8 % (0-12); NEUTROPHILS # (AUTO) 5.4 10^3/uL (1.8-7.8); PLATELET COUNT 133 10^3/uL (130-400)
[2022-05-12] MEDS: RT-ALBUTEROL SULF 2.5 MG/3 ML PRE-MIX VIAL INH SCH (06:10)
[2022-05-12 06:18] LABS: ALBUMIN 3.1 GM/DL (3.2-4.5); POTASSIUM 3.4 MMOL/L (3.6-5.0)
[2022-05-12 06:19] LABS: CALCIUM 8.4 MG/DL (8.5-10.1)
[2022-05-12 06:20] LABS: TOTAL PROTEIN 5.7 GM/DL (6.4-8.2)
[2022-05-12 06:22] LABS: BILIRUBIN,TOTAL 0.5 MG/DL (0.1-1.0)
[2022-05-12 06:24] LABS: CREATININE SERUM 0.81 MG/DL (0.60-1.30)
[2022-05-12 06:27] LABS: MAGNESIUM 1.9 MG/DL (1.6-2.4)
[2022-05-12] MEDS ORDERED: LEVOTHYROXINE 150 MCG (LEVOTHROID) TAB PO SCH (07:00)
[2022-05-12 07:37] VITALS: BP 161/79
[2022-05-12] MEDS: amLODIPine 2.5MG (NORVASC) TAB PO SCH (08:15)
[2022-05-12] MEDS: metFORMIN 500 MG (GLUCOPHAGE) TAB PO SCH ×2 (08:15→18:31)
[2022-05-12] MEDS: GABAPENTIN 300 MG (NEURONTIN) CAP PO SCH ×2 (08:16→12:29)
[2022-05-12] MEDS: PRAMIPEXOLE 0.125 MG (MIRAPEX) TABLET PO SCH (08:16)
[2022-05-12] MEDS: DOCUSATE SODIUM 100 MG (COLACE) CAP PO SCH ×2 (08:16→09:00)
[2022-05-12] MEDS: SENNOSIDES 8.6 MG (SENOKOT) TAB PO SCH ×2 (08:16→09:00)
[2022-05-12] MEDS: AtorvaSTATin TABLET 10 MG TABLET PO SCH (08:16)
[2022-05-12] MEDS ORDERED: TOPI50TA13 PO ×2 (08:40)
[2022-05-12] MEDS ORDERED: GABA300C PO ×2 (08:41)
[2022-05-12] MEDS ORDERED: FERR-84 PO (08:44)
[2022-05-12] MEDS ORDERED: CETI10TA17 PO (08:44)
[2022-05-12] MEDS ORDERED: ASCO250T16 PO (08:45)
[2022-05-12] MEDS ORDERED: CHOL500050 PO (08:45)
[2022-05-12] MEDS ORDERED: MAGN400T7 PO (08:45)
[2022-05-12] MEDS ORDERED: PYRI25TA3 PO (08:46)
[2022-05-12] MEDS ORDERED: KCL 20 MEQ TAB (K-DUR) PO SCH (09:00)
--- NOTE | 2022-05-12 10:02 | Physical Therapy Daily Note ---
PT Daily Note-Current Subjective Patient agrees to PT. Mental Status Patient Orientation: Normal For Age Attachments: Oxygen Transfers SCALE: Activities may be completed with or without assistive devices. 4-Hpzsfdcveo-lefrknk completes the activity by him/herself with no assistance from a helper. 5-Set-up or Clean-up Assistance-helper sets up or cleans up; patient completes activity. [place] assists only prior to or following the activity. 4-Supervision or Touching Assistance-helper provides verbal cues and/or touching/steadying and/or contact guard assistance as patient completes activity. Assistance may be provided throughout the activity or intermittently. 3-Partial/Moderate Assistance-helper does LESS THAN HALF the effort. [place] lifts, holds or supports trunk or limbs, but provides less than half the effort. 2-Substantial/Maximal Assistance-helper does MORE THAN HALF the effort. [place] lifts or holds trunk or limbs and provides more than half the effort. 3-Wtydnjccj-lzocrj does ALL the effort. Patient does none of the effort to complete the activity. Or, the assistance of 2 or more helpers is required for the patient to complete the activity. If activity was not attempted, code reason: 7-Patient Refused. 9-Not Applicable-not attempted and the patient did not perform the activity before the current illness, exacerbation or injury. 10-Not Attempted due to Environmental Limitations-(lack of equipment, weather restraints, etc.). 88-Not Attempted due to Medical Conditions or Safety Concerns. Sit to Stand (QC): 6 Weight Bearing Full Weight Bearing Full Weight Bearing Gait Training Distance: 500' Walk 10 feet (QC): 6 Walk 50 ft with 2 Turns(QC): 6 Walk 150 ft (QC): 6 Gait Assistive Device: FWW safe and functional with no deviation Assessment Current Status: Excellent Progress Patient much improved with gross motor skills and desires to return to home SMOOTH. Family present. Patient has FWW for home use PRN. 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 Machine Operator Goals Time Frame: May 24, 2022 Roll Left & Right (QC): 6 Sit to Lying (QC): 6 Lying-Sitting on Side/Bed(QC): 6 Sit to Stand (QC): 6 Chair/Ymn-rs-Nfniu Xfer(QC): 6 Toilet Transfer (QC): 6 Car Transfer (QC): 6 Does the Patient Walk: Yes Walk 10 feet (QC): 6 Walk 50ft with 2 Turns (QC): 6 Walk 150 ft (QC): 6 Walking 10ft on Uneven Surface: 6 1 Step (curb) (QC): 6 4 Steps (QC): 6 12 Steps (QC): 6 Picking up an Object (QC): 6 PT Plan Treatment/Plan Treatment Plan: Continue Plan of Care Treatment Plan: Bed Mobility, Education, Functional Activity Nita, Functional Strength, Gait, Safety, Therapeutic Exercise, Transfers Treatment Duration: May 24, 2022 Frequency: 11 times per week Estimated Hrs Per Day: .5 hour per day Time/GCodes Time In: 915 Time Out: 928 Total Billed Treatment Time: 13 Total Billed Treatment 1 visit FA 13 min TAN SANTANA PT May 12, 2022 10:02
[2022-05-12] MEDS ORDERED: KCL 20 MEQ TAB (K-DUR) PO ONE (10:15)
--- NOTE | 2022-05-12 10:15 | Progress Note - Cardiology ---
Cardiology SOAP Progress Note Subjective: Lying in bed Family x 1 at the bedside No c/o CP, palpitations States tired this morning after PT Feels SOB is improving Objective: I&O/Vital Signs 05/11/22 05/12/22 05/12/22 05/12/22 22:34 00:00 03:54 06:11 Temp 36.6 36.8 Pulse 69 69 Resp 18 20 B/P (MAP) 126/73 (90) 121/93 (102) Pulse Ox 90 91 93 94 O2 Delivery High Flow N/C Nasal Cannula Nasal Cannula High Flow N/C O2 Flow Rate 2.00 2.00 2.00 3.00 05/12/22 07:37 Temp 36.4 Pulse 66 Resp 20 B/P (MAP) 161/79 (106) Pulse Ox 96 O2 Delivery Nasal Cannula O2 Flow Rate 3.00 05/11/22 23:59 Intake Total 1120 ml Output Total 1250 ml Balance -130 ml Weight (Pounds): 180 Weight (Calculated Kilograms): 81.270750 Constitutional: AAO x 3, well-developed, well-nourished Respiratory: No accessory muscle use; other (fair to good, bilateral air entry) Cardiovascular: S1 and S2, systolic murmur (soft AUTUMN at card base) Gastrointestional: No tender; soft; No guarding, No rebound; audible bowel sounds Extremities: No clubbing, No cyanosis, No significant edema Neurologic/Psychiatric: oriented x 3, other (moves all limbs) Skin: normal color, warm/dry Results/Procedures: Labs Laboratory Tests 05/12/22 05:33: White Blood Count 8.0, Red Blood Count 3.22L, Hemoglobin 9.0L, Hematocrit 28L, Mean Corpuscular Volume 88, Mean Corpuscular Hemoglobin 28, Mean Corpuscular Hemoglobin Concent 32, Red Cell Distribution Width 14.1, Platelet Count 133, Mean Platelet Volume 11.7, Immature Granulocyte % (Auto) 0, Neutrophils (%) (Auto) 68, Lymphocytes (%) (Auto) 19, Monocytes (%) (Auto) 8, Eosinophils (%) (Auto) 4, Basophils (%) (Auto) 0, Neutrophils # (Auto) 5.4, Lymphocytes # (Auto) 1.5, Monocytes # (Auto) 0.6, Eosinophils # (Auto) 0.4H, Basophils # (Auto) 0.0, Immature Granulocyte # (Auto) 0.0, Percent Immature Platelet Fraction 4.8, Sodium Level 141, Potassium Level 3.4L, Chloride Level 117H, Carbon Dioxide Level 16L, Anion Gap 8, Blood Urea Nitrogen 16, Creatinine 0.81, Estimat Glomerular Filtration Rate 70, BUN/Creatinine Ratio 20, Glucose Level 163H, Calcium Level 8.4L, Corrected Calcium 9.1, Magnesium Level 1.9, Total Bilirubin 0.5, Aspartate Amino Transf (AST/SGOT) 13, Alanine Aminotransferase (ALT/SGPT) 26, Alkaline Phosphatase 56, Total Protein 5.7L, Albumin 3.1L Microbiology 05/09/22 MRSA Screen - Final, Complete MRSA not isolated 05/09/22 Urine Culture - Final, Complete NO GROWTH 05/09/22 Blood Culture - Preliminary, Resulted No growth Laboratory Tests 05/11/22 05:49 05/12/22 05:33 A/P: Assessment: UTI with sepsis and shock, improving Non-specific, pleuritic chest discomfort w/o any evidence of ACS - troponin negative - Echo on 05/10/22: LVEF 60-65%, mod conc LVH, grade 1 quach dysfunction, mod enlargement of both atria, PSP 45-50 mmHg DM II Hypertension Mild hypokalemia Plan: * Med svce to treat UTI and sepsis * Treat hypertension and DM II (Med svce) * Risk factor mod discussed * Stress test when clinically stable (given nonspecific symptoms in the setting of multiple cor risk factors) * Saturnino Cruz Follow labs DOMITILA SCHMID [facility] May 12, 2022 10:15
[2022-05-12 11:22] VITALS: BP 160/79
--- NOTE | 2022-05-12 12:21 | Occupational Therapy Eval ---
OT Evaluation-General/PLF Medical Diagnosis Admission Date May 09, 2022 at 17:15 Medical Diagnosis: suspected sepsis Onset Date: May 09, 2022 Therapy Diagnosis Therapy Diagnosis: n/a Height/Weight Height (Feet): 5 Height (Inches): 7.00 Weight (Pounds): 180 Precautions Precautions/Isolations: Fall Prevention, Standard Precautions Referral Physician: Joaquín Referral Reason: Evaluation/Treatment Medical History Pertinent Medical History: COPD, HTN Current History Pt arrived to hospital with c/o dizziness and near syncope. Found to be hypotensive. Per patient, she lives with her daughter in a single story home (with a basement that she does not use). The plan will be to discharge to her granddaughters house. She was indep with adls and shares laundry and washing dishes responsibilities. Her daughter manages all other iadls. She reports using a walker within the home and uses hand held assist when out in the community. Reviewed History: Yes Social History Home: Single Level Current Living Status: Children Entry Into Home: Stairs With Railing Steps Into Home: 1 ADL-Prior Level of Function SCALE: Activities may be completed with or without assistive devices. 8-Tlijbwbojk-idlldly completes the activity by him/herself with no assistance from a helper. 5-Set-up or Clean-up Assistance-helper sets up or cleans up; patient completes activity. [place] assists only prior to or following the activity. 4-Supervision or Touching Assistance-helper provides verbal cues and/or touching/steadying and/or contact guard assistance as patient completes activity. Assistance may be provided throughout the activity or intermittently. 3-Partial/Moderate Assistance-helper does LESS THAN HALF the effort. [place] lifts, holds or supports trunk or limbs, but provides less than half the effort. 2-Substantial/Maximal Assistance-helper does MORE THAN HALF the effort. [place] lifts or holds trunk or limbs and provides more than half the effort. 0-Berdzmlyo-oynayu does ALL the effort. Patient does none of the effort to complete the activity. Or, the assistance of 2 or more helpers is required for the patient to complete the activity. If activity was not attempted, code reason: 7-Patient Refused. 9-Not Applicable-not attempted and the patient did not perform the activity before the current illness, exacerbation or injury. 10-Not Attempted due to Environmental Limitations-(lack of equipment, weather restraints, etc.). 88-Not Attempted due to Medical Conditions or Safety Concerns. Self Care: Independent Functional Cognition: Independent DME/Equipment: Tub/Shower OT Current Status Subjective Pt denies pain, reports possibility of discharge later today. Appearance Pt left sitting in recliner, granddaughter and RN in room. Mental Status/Objective Patient Orientation: Person, Place, Situation Attachments: IV, Oxygen Current Glasses/Contacts: Yes Hearing Aids: No Hand Dominance: Right Upper Extremity ROM WNL Upper Extremity Strength 4/5 throughout ADL-Treatment Eating (QC): 5 Lower Body Dressing (QC): 4 On/Off Footwear (QC): 4 Pt sitting in recliner at OT arrival. She was Able to demonstrate ability to don/doff bilateral shoes without effort. Sit<>stand: independent. Pt able to remove BUE support from walker and simulate clothing management task without LOB. She ambulated ~5 feet (with walker) before OT noticed that her IV was dripping fluids. She returned to chair and RN called in. Per Physical therapy note, pt ambulated 500 feet, modified indep. Pt and her granddaughter deny any self care concerns at this time. OT to discharge. Education OT Patient Education: Modified ADL techniques, Purpose of tx/functional activities Teaching Recipient: Patient, Family Teaching Methods: Discussion Response to Teaching: Verbalize Understanding, Return Demonstration OT Halfway Goals Halfway Goals 1=Demonstrate adherence to instructed precautions during ADL tasks. 2=Patient will verbalize/demonstrate understanding of assistive devices/modifications for ADL. 3=Patient will improve strength/tolerance for activity to enable patient to perform ADL's. OT Education/Plan Problem List/Assessment Assessment: No Skilled OT Needs ID'd Discharge Recommendations Plan/Recommendations: Discontinue OT Therapy Discharge Recommendati: Home & Family Treatment Plan/Plan of Care Treatment,Training & Education: Yes Patient would benefit from OT for education, treatment and training to promote independence in ADL's, mobility, safety and/or upper extremity function for ADL's. Plan of Care: ADL Retraining Treatment Duration: May 12, 2022 Frequency: 1 time per week Estimated Hrs Per Day: .25 hour per day Rehab Potential: Good Time/GCodes Start Time: 12:02 Stop Time: 12:13 Total Time Billed (hr/min): 11 Billed Treatment Time 1 visit Linda Olguin OT May 12, 2022 12:21
--- NOTE | 2022-05-12 13:17 | Discharge Summary ---
Diagnosis/Chief Complaint Date of Admission May 09, 2022 at 17:15 Date of Discharge Discharge Summary-Simple/Stand Consultations Discharge Physical Examination Allergies: Coded Allergies: Sulfa (Sulfonamide Antibiotics) (Unverified Allergy, Severe, CLOSES THROAT, 12/27/18) codeine (Unverified Allergy, Severe, CLOSES THROAT, 12/27/18) Iodinated Contrast Media (Unverified Allergy, Intermediate, HIVES, 12/27/18) lisinopril (Unverified Adverse Reaction, Intermediate, CHRONIC COUGH, 12/27/18) hydrocodone (Unverified Adverse Reaction, Unknown, Hives, 05/09/22) pregabalin (Unverified Adverse Reaction, Unknown, 12/27/18) Vitals & I&Os Vital Sign - Last 12Hours Date Time Temp Pulse Resp B/P (MAP) Pulse Ox O2 Delivery O2 Flow Rate FiO2 05/12/22 11:22 36.8 62 20 160/79 (106) 95 Nasal Cannula 3.00 05/09/22 18:33 21 Intake and Output 05/12/22 00:00 Intake Total 1120 ml Output Total 1250 ml Balance -130 ml Hospital Course See final discharge diagnosis. Discharge Instructions to patient/family Please see electronic discharge instructions given to patient. Discharge Medications Reviewed and agree with Discharge Medication list on patient's Discharge Instruction sheet KRISTI JUAREZ MD May 12, 2022 13:17
[2022-05-12] MEDS ORDERED: ALBU18HF2 INH (13:22)
[2022-05-12] MEDS ORDERED: METF-397 PO (13:22)
[2022-05-12] MEDS ORDERED: CEFD300C3 PO (13:22)
[2022-05-12] MEDS ORDERED: ATOR10TA66 PO (13:22)
--- NOTE | 2022-05-12 13:23 | Discharge Summary ---
Discharge [facility] Reconcile Patient Problems Problems Reviewed?: Yes Discharge Medications New, Converted or Re-Newed RX: Transmitted to Pharmacy New Medications: Albuterol Sulfate (Ventolin Hfa) 90 Mcg Hfa.aer.ad 18 GM INH q6hrs PRN for SHORTNESS OF BREATH, #1 UNIT Cefdinir (Cefdinir) 300 Mg Capsule 300 MG PO BID for 5 Days, #10 CAP Atorvastatin Calcium (Atorvastatin Calcium) 10 Mg Tablet 10 MG PO DAILY, #30 TAB Metformin HCl (Metformin HCl) 500 Mg Tablet 500 MG PO BID WITH MEALS, #60 TAB Continued Medications: Amlodipine Besylate (Amlodipine Besylate) 2.5 Mg Tablet 2.5 MG PO DAILY Ascorbic Acid (Vitamin C) 250 Mg Tab 250 MG PO HS, TAB Carvedilol (Carvedilol) 25 Mg Tablet 25 MG PO BID Cetirizine HCl (Cetirizine HCl) 10 Mg Tablet 10 MG PO HS, TAB Cholecalciferol (Vitamin D3) (Vitamin D3) 125 Mcg (5000 Unit) Capsule 125 MCG PO HS, CAP Ferrous Sulfate (Iron) 325 Mg (65 Mg Iron) Tablet 325 MG PO HS, TAB Furosemide (Furosemide) 40 Mg Tablet 40 MG PO DAILY Gabapentin (Neurontin) 300 Mg Capsule 300 MG PO DAILY Gabapentin (Neurontin) 300 Mg Capsule 600 MG PO HS, CAP TAKES 2 (300MG) CAPS Levothyroxine Sodium (Levothyroxine Sodium) 150 Mcg Tablet 150 MCG PO DAILY Magnesium Oxide (Magnesium Oxide) 400 Mg Tablet 400 MG PO HS, TAB Nortriptyline HCl (Nortriptyline HCl) 50 Mg Capsule 50 MG PO HS Potassium Chloride (Potassium Chloride) 20 Meq Tab.er.prt 20 MEQ PO DAILY Pramipexole Di-HCl (Pramipexole Dihydrochloride) 0.25 Mg Tablet 0.25 MG PO BID Pyridoxine HCl (Vitamin B-6) 25 Mg Tablet 25 MG PO HS, TAB Topiramate (Topiramate) 50 Mg Tablet 50 MG PO DAILY Topiramate (Topiramate) 50 Mg Tablet 100 MG PO HS, TAB TAKES 2 (50MG) TABS Discontinued Medications: Metformin HCl (Metformin HCl) 1,000 Mg Tablet 1000 MG PO BID Simvastatin (Simvastatin) 20 Mg Tablet 20 MG PO DAILY Patient Instructions Goal/Follow Up Appt: 1-[address] Otto or HEALTH CARE COORDINATOR Will Send referral for Pulmonolgist that comes to [place] Patient Instructions: - Be sure to finish your antibiotics Activity & Diet Discharge Diet: Cardiac Diet KRISTI JUAREZ MD May 12, 2022 13:23
[2022-05-12 16:08] VITALS: BP 171/66
[2022-05-12] MEDS: ENOXAPARIN 40 MG/0.4 ML (LOVENOX) SYR SC SCH (18:32)
--- NOTE | 2022-05-12 18:45 | Progress Note - Cardiology ---
Cardiology SOAP Progress Note Subjective: No cp or palp or syncope or shortness of breath Weakness has improved No n/v/d Objective: I&O/Vital Signs 05/12/22 05/12/22 05/12/22 05/12/22 07:37 08:00 11:22 16:08 Temp 36.4 36.8 36.5 Pulse 66 62 64 Resp 20 20 20 B/P (MAP) 161/79 (106) 160/79 (106) 171/66 (101) Pulse Ox 96 95 95 O2 Delivery Nasal Cannula Nasal Cannula Nasal Cannula High Flow N/C O2 Flow Rate 3.00 3.00 3.00 3.00 05/12/22 00:00 Intake Total 1120 ml Output Total 1250 ml Balance -130 ml Weight (Pounds): 180 Weight (Calculated Kilograms): 81.665288 Constitutional: AAO x 3, well-developed, well-nourished Respiratory: No accessory muscle use; other (fair to good, bilateral air entry) Cardiovascular: S1 and S2, systolic murmur (soft AUTUMN at card base) Gastrointestional: No tender; soft; No guarding, No rebound; audible bowel sounds Extremities: No clubbing, No cyanosis, No significant edema Neurologic/Psychiatric: oriented x 3, other (moves all limbs) Skin: normal color, warm/dry Results/Procedures: Labs Laboratory Tests 05/12/22 05:33: White Blood Count 8.0, Red Blood Count 3.22L, Hemoglobin 9.0L, Hematocrit 28L, Mean Corpuscular Volume 88, Mean Corpuscular Hemoglobin 28, Mean Corpuscular Hemoglobin Concent 32, Red Cell Distribution Width 14.1, Platelet Count 133, Mean Platelet Volume 11.7, Immature Granulocyte % (Auto) 0, Neutrophils (%) (Auto) 68, Lymphocytes (%) (Auto) 19, Monocytes (%) (Auto) 8, Eosinophils (%) (Auto) 4, Basophils (%) (Auto) 0, Neutrophils # (Auto) 5.4, Lymphocytes # (Auto) 1.5, Monocytes # (Auto) 0.6, Eosinophils # (Auto) 0.4H, Basophils # (Auto) 0.0, Immature Granulocyte # (Auto) 0.0, Percent Immature Platelet Fraction 4.8, Sodium Level 141, Potassium Level 3.4L, Chloride Level 117H, Carbon Dioxide Level 16L, Anion Gap 8, Blood Urea Nitrogen 16, Creatinine 0.81, Estimat Glomerular Filtration Rate 70, BUN/Creatinine Ratio 20, Glucose Level 163H, Calcium Level 8.4L, Corrected Calcium 9.1, Magnesium Level 1.9, Total Bilirubin 0.5, Aspartate Amino Transf (AST/SGOT) 13, Alanine Aminotransferase (ALT/SGPT) 26, Alkaline Phosphatase 56, Total Protein 5.7L, Albumin 3.1L Microbiology 05/09/22 MRSA Screen - Final, Complete MRSA not isolated 05/09/22 Urine Culture - Final, Complete NO GROWTH 05/09/22 Blood Culture - Preliminary, Resulted No growth Laboratory Tests 05/11/22 05:49 05/12/22 05:33 A/P: Assessment: UTI with sepsis and shock, improving Non-specific, pleuritic chest discomfort w/o any evidence of ACS - troponin negative - Echo on 05/10/22: LVEF 60-65%, mod conc LVH, grade 1 quach dysfunction, mod enlargement of both atria, PSP 45-50 mmHg DM II Hypertension Mild hypokalemia Plan: * Med svce treating htn, DMII, UTI and sepsis * Risk factor mod discussed * Stress test when clinically stable (given nonspecific symptoms in the setting of multiple cor risk factors) * Replenish K * Outpt cardiac f/u advised. Se states she will f/u at the Cardiology clinic in [facility] (Dr Monroe) CHUCHO POWERS MD [facility] CCDS May 12, 2022 18:45
[2022-05-12 18:50] VITALS: BP 171/66
[2022-05-12] MEDS ORDERED: NORTRIPTYLINE 25 MG (PAMELOR) CAP PO SCH (21:00)
== END 2022-05-12 18:54 | disposition home or self-care (01) | DRG 314 ==
LOC: EDUNIT# 13:44 → ER 13:46 → ICU 17:15 → 4TH 05-10 13:43
PROVIDERS: ADMIT Internal Medicine; ATTEND Family Medicine
PROC: 5A0935A Assistance with Respiratory Ventilation, Less than 24 Consecutive Hours, High Flow/Velocity Cannula (ICD-10-PCS; principal; 2022-05-09)
DX: I95.9 Hypotension, unspecified (principal); A41.9 Sepsis, unspecified organism; J18.9 Pneumonia, unspecified organism; N39.0 Urinary tract infection, site not specified; E87.2 Acidosis; J44.0 Chronic obstructive pulmonary disease with (acute) lower respiratory infection; E86.0 Dehydration; N18.9 Chronic kidney disease, unspecified; E03.9 Hypothyroidism, unspecified; R07.9 Chest pain, unspecified; Z20.822 Contact with and (suspected) exposure to COVID-19; Z88.2 Allergy status to sulfonamides; Z91.041 Radiographic dye allergy status; E78.00 Pure hypercholesterolemia, unspecified; G43.909 Migraine, unspecified, not intractable, without status migrainosus; M81.0 Age-related osteoporosis without current pathological fracture; M19.90 Unspecified osteoarthritis, unspecified site; Z87.891 Personal history of nicotine dependence; E87.6 Hypokalemia; I12.9 Hypertensive chronic kidney disease with stage 1 through stage 4 chronic kidney disease, or unspecified chronic kidney disease; E11.22 Type 2 diabetes mellitus with diabetic chronic kidney disease
CPT/HCPCS: 36415; 51702; 71045; 80048; 80053; 80076; 81000; 83605; 83735; 83880; 84100; 84484; 85025; 85379; 87040; 87081; 87088; 93005; 93306; 94640; 94664; 94760

== ENCOUNTER 2023-07-17 10:31 | Inpatient (IN) | payer MEDICARE, BC ==
[~2023-07-17] VITALS: Ht 170.2 cm; Wt 68.0 kg
[~2023-07-17 10:31] MED LIST changes: +ALBU18HF2 INH; +AMLO2.5T4 PO; +ASCO250T16 PO; +ATOR10TA66 PO; +CARV25TA PO; +CEFD300C3 PO; +CETI10TA17 PO; +CHOL500050 PO; +FERR-84 PO; +FURO40TA4 PO; +GABA300C PO; +LEVO150T6 PO; +MAGN400T7 PO; +METF-397 PO; +METF-399 PO; +NORT50CA PO; +POTA-179 PO; +PRAM0.257 PO; +PYRI25TA3 PO; +SIMV20TA26 PO; +TOPI-241 PO
[2023-07-17 10:57] LABS: BASOPHILS % (AUTO) 0 % (0-10); EOSINOPHILS # (AUTO) 0.5 10^3/uL (0.0-0.3); EOSINOPHILS % (AUTO) 4 % (0-10); HEMATOCRIT 34 % (35-52); HEMOGLOBIN 10.7 g/dL (11.5-16.0); LYMPHOCYTES # (AUTO) 1.7 10^3/uL (1.0-4.0); LYMPHOCYTES % (AUTO) 14 % (12-44); MEAN CORPUSCULAR HEMOGLOBIN 28 pg (25-34); MEAN CORPUSCULAR HGB CONC 32 g/dL (32-36); MEAN CORPUSCULAR VOLUME 88 fL (80-99); MEAN PLATELET VOLUME 11.7 fL (9.0-12.2); MONOCYTES # (AUTO) 0.4 10^3/uL (0.0-1.0); MONOCYTES % (AUTO) 4 % (0-12); NEUTROPHILS # (AUTO) 9.1 10^3/uL (1.8-7.8); NEUTROPHILS % (AUTO) 77 % (42-75); PLATELET COUNT 118 10^3/uL (130-400); WHITE BLOOD COUNT 11.9 10^3/uL (4.3-11.0)
--- NOTE | 2023-07-17 11:06 | Diagnostic Imaging Report ---
INDICATION: Cough. COMPARISON: 05/10/2022. FINDINGS: Single frontal radiographic view of the chest was obtained and demonstrates mild cardiomegaly. Pulmonary vasculature is within normal limits. Patchy airspace opacities are noted within both lung bases. There may be trace left basilar effusion. No pneumothorax is seen on either side. Osseous structures show no acute abnormalities. IMPRESSION: 1. Patchy bibasilar airspace disease concerning for pneumonia. 2. Possible trace left basilar effusion. 3. Mild cardiomegaly. Dictated by: Dictated on workstation # [id number]
--- NOTE | 2023-07-17 11:12 | ED General ---
General Chief Complaint: Cough/Cold/Flu Symptoms Stated Complaint: +COVID, SPITTING UP BLOOD Nursing Triage Note: Patient c/o coughing up blood and fevers that started yesterday. Patient states she tested positive for Covid on Thursday of this week. Patient denies being on any blood thinners. Patient denies any chest pain or shortness of breath. Patient denies any blood clots being in her sputum. Patient states there is a lot of blood in her sputum. Source of Information: Patient, Family Exam Limitations: No Limitations History of Present Illness Date Seen by Provider: Jul 17, 2023 Time Seen by Provider: 10:36 Initial Comments This 88-year-old woman presents to the emergency room accompanied by her daughter with concerns about coughing up blood since yesterday. She was diagnosed with COVID-19 Thursday, July 15 and was started on molnupiravir. She was feeling rather terrible on Thursday but felt better yesterday. She denies feeling short of air although she does appear dyspneic on exam. She denies chest pain. Oxygen saturation is ranging from 89 to 92% on room air. She does use oxygen per nasal cannula at home as needed. 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 She denies any other underlying lung disease per daughter's report, but COPD is noted in her chart. Her primary care provider is Lupe Hernandez at [facility]. Patient is coughing up small amounts of bright red blood mixed with mucus. She does not have significant pain associated with this. She is presently afebrile. She lives with her daughter who is very attentive but can only provide limited support. Tamar denies taking any blood thinning medications. She has no history of DVTs or PE. Allergies and Home Medications Allergies Coded Allergies: Sulfa (Sulfonamide Antibiotics) (Unverified Allergy, Severe, CLOSES THROAT, 12/27/18) codeine (Unverified Allergy, Severe, CLOSES THROAT, 12/27/18) Iodinated Contrast Media (Unverified Allergy, Intermediate, HIVES, 12/27/18) lisinopril (Unverified Adverse Reaction, Intermediate, CHRONIC COUGH, 12/27/18) hydrocodone (Unverified Adverse Reaction, Unknown, Hives, 05/09/22) pregabalin (Unverified Adverse Reaction, Unknown, 12/27/18) Patient Home Medication List Home Medication List Reviewed: Yes Albuterol Sulfate (Ventolin Hfa) 90 Mcg Hfa.aer.ad, 18 GM INH q6hrs PRN for SHORTNESS OF BREATH Prescribed by: KRISTI JUAREZ on 05/12/22 1322 Amlodipine Besylate (Amlodipine Besylate) 2.5 Mg Tablet, 2.5 MG PO DAILY, (Reported) Entered as Reported by: MJ MARQUEZ on 05/10/22 1214 Ascorbic Acid (Vitamin C) 250 Mg Tab, 250 MG PO HS, (Reported) Entered as Reported by: ROGER AMOR on 05/12/22 0845 Atorvastatin Calcium (Atorvastatin Calcium) 10 Mg Tablet, 10 MG PO DAILY Prescribed by: KRISTI JUAREZ on 05/12/22 1322 Carvedilol (Carvedilol) 25 Mg Tablet, 25 MG PO BID, (Reported) Entered as Reported by: MJ MARQUEZ on 05/10/22 1214 Cefdinir (Cefdinir) 300 Mg Capsule, 300 MG PO BID Prescribed by: KRISTI JUAREZ on 05/12/22 1322 Cetirizine HCl (Cetirizine HCl) 10 Mg Tablet, 10 MG PO HS, (Reported) Entered as Reported by: ROGER AMOR on 05/12/22 0844 Cholecalciferol (Vitamin D3) (Vitamin D3) 125 Mcg (5000 Unit) Capsule, 125 MCG PO HS, (Reported) Entered as Reported by: ROGER AMOR on 05/12/22 0845 Ferrous Sulfate (Iron) 325 Mg (65 Mg Iron) Tablet, 325 MG PO HS, (Reported) Entered as Reported by: ROGER AMOR on 05/12/22 0844 Furosemide (Furosemide) 40 Mg Tablet, 40 MG PO DAILY, (Reported) Entered as Reported by: MJ MARQUEZ on 05/10/22 1214 Gabapentin (Neurontin) 300 Mg Capsule, 300 MG PO DAILY, (Reported) Entered as Reported by: ROGER AMOR on 05/12/22 0841 Gabapentin (Neurontin) 300 Mg Capsule, 600 MG PO HS, (Reported) Entered as Reported by: ROGER AMOR on 05/12/22 0841 Levothyroxine Sodium (Levothyroxine Sodium) 150 Mcg Tablet, 150 MCG PO DAILY, (Reported) Entered as Reported by: MJ MARQUEZ on 05/10/22 1214 Magnesium Oxide (Magnesium Oxide) 400 Mg Tablet, 400 MG PO HS, (Reported) Entered as Reported by: ROGER AMOR on 05/12/22 0845 Metformin HCl (Metformin HCl) 500 Mg Tablet, 500 MG PO BID WITH MEALS Prescribed by: KRISTI JUAREZ on 05/12/22 1322 Nortriptyline HCl (Nortriptyline HCl) 50 Mg Capsule, 50 MG PO HS, (Reported) Entered as Reported by: MJ MARQUEZ on 05/10/22 1214 Potassium Chloride (Potassium Chloride) 20 Meq Tab.er.prt, 20 MEQ PO DAILY, ( Reported) Entered as Reported by: MJ MARQUEZ on 05/10/22 1214 Pramipexole Di-HCl (Pramipexole Dihydrochloride) 0.25 Mg Tablet, 0.25 MG PO BID, (Reported) Entered as Reported by: MJ MARQUEZ on 05/10/22 1214 Pyridoxine HCl (Vitamin B-6) 25 Mg Tablet, 25 MG PO HS, (Reported) Entered as Reported by: ROGER AMOR on 05/12/22 0846 Topiramate (Topiramate) 50 Mg Tablet, 50 MG PO DAILY, (Reported) Entered as Reported by: ROGER AMOR on 05/12/22 0840 Topiramate (Topiramate) 50 Mg Tablet, 100 MG PO HS, (Reported) Entered as Reported by: ROGER AMOR on 05/12/22 0840 Review of Systems Review of Systems Constitutional: malaise EENTM: no symptoms reported Respiratory: see HPI Cardiovascular: no symptoms reported Gastrointestinal: no symptoms reported Genitourinary: no symptoms reported : No Musculoskeletal: muscle pain Skin: no symptoms reported Psychiatric/Neurological: No Symptoms Reported Hematologic/Lymphatic: No Symptoms Reported Immunological/Allergic: no symptoms reported Past Kkdtndg-Wxdshg-Blnnwz Hx Patient Social History Tobacco Use?: No Use of E-Cig and/or Vaping dev: No Substance use?: No Alcohol Use?: No Pt feels they are or have been: No Immunizations Up To Date Influenza Vaccine Up-to-Date: No; Not Current First/Initial COVID19 Vaccinat: 2020 Second COVID19 Vaccination Nabil: 2020 Third COVID19 Vaccination Date: 2020 Seasonal Allergies Seasonal Allergies: No Past Medical History Surgery/Hospitalization HX: DIABETES, HTN, Hypothyroid, Hypercholesterolemia. COPD Surgeries: Yes Hysterectomy, Orthopedic (Knees) Respiratory: Yes Pneumonia, COPD Cardiac: Yes (poor historian) High Cholesterol, Hypertension Neurological: Yes (poor historian) Headaches /Migraines Genitourinary: No (poor historian) Gastrointestinal: No (poor historian) Musculoskeletal: Yes (RLS of legs) Osteoporosis, Arthritis Endocrine: Yes Hypothyroidsim HEENT: No (poor historian) Cancer: No (poor historian ) Psychosocial: No (poor historian) Integumentary: No (poor historian) Physical Exam Vital Signs Vital Signs - First Documented 07/17/23 07/17/23 10:36 11:06 Temp 37.0 Pulse 66 Resp 18 B/P (MAP) 162/70 (100) Pulse Ox 92 O2 Delivery Room Air O2 Flow Rate 2.00 Capillary Refill : Height, Weight, BMI Height: 5'7.00" Weight: 180lbs. oz. 81.941671ot; 23.00 BMI Method:Stated General Appearance: WD/WN, Mild Distress, Other (Appears to be mildly uncomfortable and ill) HEENT: PERRL/EOMI, Normal ENT Inspection, Other (bloody mucus in oropharynx) Neck: Normal Inspection Respiratory: Crackles (faint in left base), Decreased Breath Sounds, Other (appears mildly dyspneic) Cardiovascular: Regular Rate, Rhythm, No Edema, No Murmur Gastrointestinal: Non Tender, Soft; No Distended Extremity: Normal Inspection Neurologic/Psychiatric: Alert, Normal Mood/Affect, Other (poor historian, daughter helps with history) Skin: Normal Color, Warm/Dry Focused Exam Lactate Level 07/17/23 10:40: Lactic Acid Level 1.05 Lactic Acid Level Laboratory Tests Test 07/17/23 10:40 Lactic Acid Level 1.05 MMOL/L (0.50-2.00) Progress/Results/Core Measures Suspected Sepsis SIRS Temperature: Pulse: 66 Respiratory Rate: 18 Laboratory Tests 07/17/23 10:40: White Blood Count 11.9H Blood Pressure 162 /70 Mean: 100 07/17/23 10:40: Lactic Acid Level 1.05 Laboratory Tests 07/17/23 10:40: Creatinine 1.17, INR Comment 1.1, Platelet Count 118L, Total Bilirubin 0.6 Results/Orders Lab Results Laboratory Tests Test 07/17/23 10:40 Range/Units White Blood Count 11.9 H 4.3-11.0 10^3/uL Red Blood Count 3.80 3.80-5.11 10^6/uL Hemoglobin 10.7 L 11.5-16.0 g/dL Hematocrit 34 L 35-52 % Mean Corpuscular Volume 88 80-99 fL Mean Corpuscular Hemoglobin 28 25-34 pg Mean Corpuscular Hemoglobin Concent 32 32-36 g/dL Red Cell Distribution Width 14.2 10.0-14.5 % Platelet Count 118 L 130-400 10^3/uL Mean Platelet Volume 11.7 9.0-12.2 fL Immature Granulocyte % (Auto) 1 % Neutrophils (%) (Auto) 77 H 42-75 % Lymphocytes (%) (Auto) 14 12-44 % Monocytes (%) (Auto) 4 0-12 % Eosinophils (%) (Auto) 4 0-10 % Basophils (%) (Auto) 0 0-10 % Neutrophils # (Auto) 9.1 H 1.8-7.8 10^3/uL Lymphocytes # (Auto) 1.7 1.0-4.0 10^3/uL Monocytes # (Auto) 0.4 0.0-1.0 10^3/uL Eosinophils # (Auto) 0.5 H 0.0-0.3 10^3/uL Basophils # (Auto) 0.0 0.0-0.1 10^3/uL Immature Granulocyte # (Auto) 0.2 H 0.0-0.1 10^3/uL Percent Immature Platelet Fraction 6.5 0.0-7.6 % Prothrombin Time 14.4 12.2-14.7 SEC INR Comment 1.1 0.8-1.4 Activated Partial Thromboplast Time 42 H 24-35 SEC Sodium Level 140 135-145 MMOL/L Potassium Level 3.8 3.6-5.0 MMOL/L Chloride Level 109 H 98-107 MMOL/L Carbon Dioxide Level 19 L 21-32 MMOL/L Anion Gap 12 5-14 MMOL/L Blood Urea Nitrogen 29 H 7-18 MG/DL Creatinine 1.17 0.60-1.30 MG/DL Estimat Glomerular Filtration Rate 45 BUN/Creatinine Ratio 25 Glucose Level 178 H 70-105 MG/DL Lactic Acid Level 1.05 0.50-2.00 MMOL/L Calcium Level 9.2 8.5-10.1 MG/DL Corrected Calcium 9.4 8.5-10.1 MG/DL Total Bilirubin 0.6 0.1-1.0 MG/DL Aspartate Amino Transf (AST/SGOT) 11 5-34 U/L Alanine Aminotransferase (ALT/SGPT) 15 0-55 U/L Alkaline Phosphatase 82 40-136 U/L Total Protein 6.8 6.4-8.2 GM/DL Albumin 3.8 3.2-4.5 GM/DL My Orders Orders - SLOAN BASSETT MD Chest 1 View Ap/Pa Only (07/17/23 10:35) Cbc And Automated Diff (07/17/23 10:35) Comprehensive Metabolic Panel (07/17/23 10:35) Protime With Inr (07/17/23 10:35) Partial Thromboplastin Time (07/17/23 10:35) Ed Iv/Invasive Line Start (07/17/23 10:35) Blood Culture (07/17/23 11:03) Sputum Culture (07/17/23 11:03) Vital Signs Adult Sepsis Patie Q15M (07/17/23 11:03) O2 (07/17/23 11:03) Remove Rings In Anticipation O (07/17/23 11:03) Lactic Acid Analyzer (07/17/23 11:03) Piperacillin/Tazobactam (Piperacillin/Ta (07/17/23 11:15) Ct Angio Chest W (07/17/23 11:32) Ns Iv 500 Ml (Ns Iv 500 Ml) (07/17/23 11:45) Iohexol Injection (Omnipaque 350 Mg/Ml 1 (07/17/23 11:45) Received Contrast (Hold Metformin- Contr (07/17/23 11:45) Ns (Ivpb) 100 Ml (Sodium Chloride 0.9% 1 (07/17/23 11:45) Dexamethasone Injection (Dexamethasone (07/17/23 13:15) Ed Admission (Communication) (07/17/23 13:03) Code/Resuscitation (07/17/23 13:10) Sputum Culture (07/17/23 13:20) Medications Given in ED Current Medications Medications Dose Ordered Sig/Alan Route Start Time Stop Time Status Last Admin Dose Admin Dexamethasone Sodium Phosphate 6 mg ONCE ONCE IV 07/17/23 13:15 07/17/23 13:16 DC 07/17/23 13:17 6 MG Iohexol 100 ml ONCE ONCE IV 07/17/23 11:45 07/17/23 11:46 DC 07/17/23 12:07 80 ML Piperacillin Sod/ Tazobactam Sod 4.5 gm/Sodium Chloride 100 ml @ 200 mls/hr ONCE ONCE IV 07/17/23 11:15 07/17/23 11:44 DC 07/17/23 11:26 200 MLS/HR Sodium Chloride 100 ml ONCE ONCE IV 07/17/23 11:45 07/17/23 11:46 DC 07/17/23 12:07 100 ML Sodium Chloride 500 ml @ 0 mls/hr Q0M ONCE IV 07/17/23 11:45 07/17/23 11:46 DC 07/17/23 12:15 0 MLS/HR Vital Signs/I&O 07/17/23 07/17/23 07/17/23 07/17/23 10:36 11:06 13:40 14:48 Temp 37.0 37.0 Pulse 66 66 61 Resp 18 18 16 B/P (MAP) 162/70 (100) 162/70 143/62 Pulse Ox 92 97 O2 Delivery Room Air Nasal Cannula Room Air Nasal Cannula O2 Flow Rate 2.00 2.00 Capillary Refill : Blood Pressure Mean: 100 Progress Note : Time: 13:30 Progress Note Patient was interviewed and examined. Her daughter was also interviewed. She had stable vital signs and was not in significant distress. She did demonstrate hemoptysis with coarse cough during the evaluation. Septic work-up was pursued. Chest x-ray revealed evidence of pneumonia. Labs were obtained, reviewed, and interpreted by me in their entirety. CBC was notable for slight leukocytosis of 11.9, mild anemia with hemoglobin of 10.7 which is up from baseline of 9.0 in April 2022, and mild thrombocytopenia with platelets of 118. PTT was mildly elevated at 42. Coags were otherwise unremarkable. CMP was notable for BUN of 29, creatinine of 1.17, reduced GFR of 45, and hyperglycemia of 178. Lactic acid was normal at 1.08. CT angiogram of the chest was obtained after reviewing labs. CT revealed bibasilar infiltrates consistent with pneumonia by both my interpretation and the radiologist interpretation. The radiologist also appreciated lymphadenopathy. Neither the radiologist nor I appreciated any pulmonary emboli, pneumothorax, or masses. Patient was treated with Zosyn after blood cultures were obtained. I discussed admission with the patient and her daughter. All parties involved agree that admission is the best course of action at this time to ensure she improves rather than declines. Patient was hypoxic in the emergency room with oxygen saturations dipping into the upper 80s. She remained in the mid 90s on 2 L by nasal cannula. She was not wheezing and did not require any breathing treatments. Normal saline 500 mL bolus was administered after receiving contrast dye for the CT angiogram. I discussed the case with Dr. Yanes, admitting hospitalist for [facility]. She requested that dexamethasone be initiated in the ER as well. Dexamethasone 6 mg IV was ordered. I discussed CODE STATUS with the patient and her daughter. She is clear that she desires a DNR order. Diagnostic Imaging Diagonstic Imaging: Xray Plain Films/CT/US/NM/MRI: chest Comments NAME: TAMAR BERTRAND [facility] REC#: [id number] PT STATUS: REG ER : 1935 PHYSICIAN: SLOAN BASSETT MD ADMIT DATE: 07/17/23/ER FS Draft Date of Exam:07/17/23 CHEST 1 VIEW AP/PA ONLY INDICATION: Cough. COMPARISON: 05/10/2022. FINDINGS: Single frontal radiographic view of the chest was obtained and demonstrates mild cardiomegaly. Pulmonary vasculature is within normal limits. Patchy airspace opacities are noted within both lung bases. There may be trace left basilar effusion. No pneumothorax is seen on either side. Osseous structures show no acute abnormalities. IMPRESSION: 1. Patchy bibasilar airspace disease concerning for pneumonia. 2. Possible trace left basilar effusion. 3. Mild cardiomegaly. Dictated on workstation # [id number] Dict: 07/17/23 1100 Trans: 07/17/23 1106 [id number] [id number] Interpreted by: OFELIA OG MD Diagonstic Imaging: CT Plain Films/CT/US/NM/MRI: chest Comments NAME: TAMAR BERTRAND [facility] REC#: [id number] PT STATUS: REG ER : 1935 PHYSICIAN: SLOAN BASSETT MD ADMIT DATE: 07/17/23/ER FS Draft Date of Exam:07/17/23 CT ANGIO CHEST W PROCEDURE: CT angiography of the chest with contrast. TECHNIQUE: Multiple contiguous axial images were obtained through the chest after uneventful bolus administration of intravenous contrast. 3D reconstructed CTA MIP acquisitions were also performed. Auto Exposure Controls were utilized during the CT exam to meet ALARA standards for radiation dose reduction. INDICATION: Hemoptysis and cough. Patient is COVID 19 positive. No prior studies are available for comparison. Evaluation of pulmonary arterial system is without evidence of thromboembolism. No filling defects are seen within central, lobar or segmental branches. The thoracic aorta is normal caliber. There is no dissection. No pericardial fluid is identified. Heart is enlarged. There are small bilateral pleural effusions. No axillary lymphadenopathy is identified. There are some prominent lymph nodes in the mediastinum and rudi bilaterally, indeterminate. There are airspace pulmonary infiltrates bilateral lower lobes suggestive of pneumonia. The upper abdomen demonstrates numerous stones within the gallbladder. There are left-sided renal cysts. IMPRESSION: 1. No evidence of pulmonary embolism or acute aortic disease. 2. Small bilateral pleural effusions with bibasilar pulmonary infiltrates consistent with pneumonia. There are some prominent lymph nodes in the mediastinum and rudi. While these may be reactive, other etiologies cannot be entirely excluded and followup to confirm clearing could be performed after course of therapy. 3. Cholelithiasis. Dictated on workstation # [id number] Dict: 07/17/23 1226 Trans: 07/17/23 1234 [facility] [id number] Interpreted by: MAGALIS SU MD Departure Communication (Admissions) Time/Spoke to Admitting Phy: 12:55 Dr. Yanes Impression Primary Impression: COVID-19 Additional Impressions: Pneumonia Qualified Codes: J18.9 - Pneumonia, unspecified organism Hemoptysis Hypoxia Disposition: 30 STILL A PATIENT Condition: Stable Admissions Decision to Admit Reason: Admit from ER (General) Decision to Admit/Date: Jul 17, 2023 Time/Decision to Admit Time: 12:55 Transfer Transfer Time: 14:48 Transfer Facility: [facility] Method of Transfer: EMS Departure-Patient Inst. Referrals: JOVITA MALONE MD (PCP/Family) Primary Care Physician Copy Copies To 1: [facility]/SLOAN HERNANDEZ MD Jul 17, 2023 11:12
[2023-07-17] MEDS ORDERED: PIPERACILLIN/Tazobactam 4.5 GM in NS (IVPB) 100 ML 100 ML IV ONE (11:15)
[2023-07-17 11:20] LABS: ALBUMIN 3.8 GM/DL (3.2-4.5); BILIRUBIN,TOTAL 0.6 MG/DL (0.1-1.0); CALCIUM 9.2 MG/DL (8.5-10.1); CREATININE SERUM 1.17 MG/DL (0.60-1.30); POTASSIUM 3.8 MMOL/L (3.6-5.0); TOTAL PROTEIN 6.8 GM/DL (6.4-8.2)
[2023-07-17 11:21] LABS: INR 1.1 (0.8-1.4); PROTHROMBIN TIME PATIENT 14.4 SEC (12.2-14.7)
[2023-07-17] MEDS ORDERED: HOLD METFORMIN - RECEIVED CONTRAST 20 ML VIAL IV SCH (11:45)
[2023-07-17] MEDS ORDERED: IOHEXOL 350 MG/ML 100 ML (OMNIPAQUE 350) VIAL IV ONE (11:45)
[2023-07-17] MEDS ORDERED: NS 100 ML (IVPB) BAG IV ONE (11:45)
[2023-07-17] MEDS ORDERED: NS IV 500 ML 500 ML IV ONE (11:45)
--- NOTE | 2023-07-17 12:35 | Diagnostic Imaging Report ---
PROCEDURE: CT angiography of the chest with contrast. TECHNIQUE: Multiple contiguous axial images were obtained through the chest after uneventful bolus administration of intravenous contrast. 3D reconstructed CTA MIP acquisitions were also performed. Auto Exposure Controls were utilized during the CT exam to meet ALARA standards for radiation dose reduction. INDICATION: Hemoptysis and cough. Patient is COVID 19 positive. No prior studies are available for comparison. Evaluation of pulmonary arterial system is without evidence of thromboembolism. No filling defects are seen within central, lobar or segmental branches. The thoracic aorta is normal caliber. There is no dissection. No pericardial fluid is identified. Heart is enlarged. There are small bilateral pleural effusions. No axillary lymphadenopathy is identified. There are some prominent lymph nodes in the mediastinum and rudi bilaterally, indeterminate. There are airspace pulmonary infiltrates bilateral lower lobes suggestive of pneumonia. The upper abdomen demonstrates numerous stones within the gallbladder. There are left-sided renal cysts. IMPRESSION: 1. No evidence of pulmonary embolism or acute aortic disease. 2. Small bilateral pleural effusions with bibasilar pulmonary infiltrates consistent with pneumonia. There are some prominent lymph nodes in the mediastinum and rudi. While these may be reactive, other etiologies cannot be entirely excluded and followup to confirm clearing could be performed after course of therapy. 3. Cholelithiasis. Dictated by: Dictated on workstation # [id number]
[2023-07-17] MEDS ORDERED: dexAMETHasone INJ 10 MG/ML 1 ML VIAL IV ONE (13:15)
[2023-07-17] MEDS ORDERED: RT-ALBUTEROL HFA 8.5 GM INHALER IH PRN (16:00)
[2023-07-17 16:15] VITALS: BP 162/70
[2023-07-17] MEDS ORDERED: MELATONIN 3 MG TABLET PO PRN (16:15)
[2023-07-17] MEDS ORDERED: LACTULOSE SYRUP 10GM/15ML 30ML UDC PO PRN (16:15)
[2023-07-17] MEDS ORDERED: BISACODYL 10 MG SUPPOSITORY PR PRN (16:15)
[2023-07-17] MEDS ORDERED: ONDANSETRON INJECTION 4 MG/2 ML (SDV) IV PRN (16:15)
[2023-07-17] MEDS ORDERED: HYDROmorphone INJECTION 2 MG/ML VIAL IV PRN (16:15)
[2023-07-17] MEDS ORDERED: diphenhydrAMINE INJ 50 MG/ML VIAL IVP PRN (16:15)
[2023-07-17] MEDS ORDERED: guaiFENesin SYRUP 100 MG/5 ML 10 ML PO PRN (16:15)
[2023-07-17] MEDS ORDERED: oxyCODONE IMMEDIATE RELEASE 5 MG TABLET PO PRN (16:15)
[2023-07-17] MEDS ORDERED: ACETAMINOPHEN 325 MG TABLET PO PRN (16:15)
[2023-07-17] MEDS ORDERED: ONDANSETRON 4 MG ORAL DISSOLVE TABLET PO PRN (16:15)
[2023-07-17] MEDS ORDERED: diphenhydrAMINE 25 MG TABLET PO PRN (16:15)
[2023-07-17] MEDS ORDERED: ANTACID SUSPENSION 30 ML UDC PO PRN (16:15)
[2023-07-17] MEDS ORDERED: cloNIDine 0.1 MG TABLET PO PRN (16:15)
[2023-07-17] MEDS: NS IV 1000 ML 1,000 ML IV SCH (16:28)
[2023-07-17] MEDS: AZITHROMYCIN INJECTION 500 MG in NS (IVPB) 250 ML 250 ML IV SCH (16:28)
[2023-07-17] MEDS: ENOXAPARIN 40 MG/0.4 ML SYRINGE SC SCH (16:29)
[2023-07-17] MEDS ORDERED: CEFEPIME INJECTION 2,000 MG in NS (IVPB) 50 ML 50 ML IV SCH (16:30)
--- NOTE | 2023-07-17 17:21 | History & Physical ---
History of Present Illness HPI/Chief Complaint Chief complaint: COVID pneumonia HPI: This is an 88-year-old female clinic patient of [facility] who presented to the ER with worsening status following COVID diagnosis 2 days ago. She became hypoxic and severely weak and productive cough. Work-up revealed COVID-pneumonia and clinical status is requiring admission to the hospital for supportive care. She lives with her daughter. Denies any chest pain denies any nausea vomiting constipation or diarrhea.To note she began coughing up some blood with sputum mixed in. Source: patient, family Exam Limitations: no limitations Date Seen 07/17/23 Time Seen by a Provider: 16:30 Attending Physician Hira Chamorro - [facility] PCP Admitting Physician: Augusta Yanes DO Attending Physician: Augusta Yanes DO Referring Physician Date of Admission Jul 17, 2023 at 15:30 Home Medications & Allergies Home Medications Reviewed patient Home Medication Reconciliation performed by pharmacy medication reconciliations science technicians and/or nursing. Patients Allergies have been reviewed. Allergies Allergies Coded Allergies Sulfa (Sulfonamide Antibiotics) (Unverified Allergy, Severe, CLOSES THROAT, 12/27/18) codeine (Unverified Allergy, Severe, CLOSES THROAT, 12/27/18) Iodinated Contrast Media (Unverified Allergy, Intermediate, HIVES, 12/27/18) lisinopril (Unverified Adverse Reaction, Intermediate, CHRONIC COUGH, 12/27/18) hydrocodone (Unverified Adverse Reaction, Unknown, Hives, 05/09/22) pregabalin (Unverified Adverse Reaction, Unknown, 12/27/18) Past Kpagfzx-Iuomqh-Dnufbx Hx Past Med/Social Hx: Reviewed Nursing Past Med/Soc Hx, Reviewed and Corrections made Patient Social History Marrital Status: single Employed/Student: retired Alcohol Use: Denies Use Smoking Status: Never a Smoker Recent Hopitalizations: No Immunizations Up To Date Date of Pneumonia Vaccine: Jun 26, 1999 Date of Influenza Vaccine: Jun 26, 2018 Seasonal Allergies Seasonal Allergies: No Past Medical History Surgeries: Hysterectomy, Orthopedic (Knees) Cardiac: High Cholesterol, Hypertension Neurological: Headaches /Migraines Musculoskeletal: Osteoporosis, Arthritis Endocrine: Hypothyroidsim Review of Systems Constitutional: see HPI, malaise, weakness EENTM: no symptoms reported Respiratory: cough, dyspnea on exertion, short of breath Cardiovascular: no symptoms reported Gastrointestinal: no symptoms reported Genitourinary: no symptoms reported Musculoskeletal: no symptoms reported Skin: no symptoms reported Psychiatric/Neurological: No Symptoms Reported All Other Systems Reviewed Negative Unless Noted: Yes Physical Exam Physical Exam Vital Signs Vital Signs - First Documented 07/17/23 07/17/23 07/17/23 10:36 11:06 16:15 Temp 37.0 Pulse 66 Resp 18 B/P (MAP) 162/70 (100) Pulse Ox 92 O2 Delivery Room Air O2 Flow Rate 2.00 FiO2 21 Capillary Refill : Less Than 3 Seconds Height, Weight, BMI Height: 5'7.00" Weight: 180lbs. oz. 81.313168th; 23.50 BMI Method:Stated General Appearance: WD/WN, Anxious, Chronically ill, Mild Distress, Other (Appears to be mildly uncomfortable and ill) HEENT: PERRL/EOMI, Normal ENT Inspection, Other (bloody mucus in oropharynx) Neck: Normal Inspection Respiratory: Crackles (faint in left base), Decreased Breath Sounds, Other (appears mildly dyspneic) Cardiovascular: Regular Rate, Rhythm, No Edema, No Murmur Gastrointestinal: Non Tender, Soft; No Distended Extremity: Normal Inspection Neurologic/Psychiatric: Alert, Normal Mood/Affect, Other (poor historian, daughter helps with history) Skin: Normal Color, Warm/Dry Results Results/Procedures Labs Laboratory Tests 07/17/23 10:40 07/18/23 04:47 Patient resulted labs reviewed. Assessment/Plan Admission Diagnosis Assessment: Acute hypoxic respiratory failure COVID Sepsis Hemoptysis Bacterial pneumonia Advanced age Osteoporosis Hypothyroidism Leukocytosis Dehydration Plan: IV antibiotics IV steroids Home meds Oxygen Cardiac stepdown Admission Status: Inpatient Order (span 2 midnights) Reason for Inpatient Admission: COVID with acute hypoxic respiratory failure Diagnosis/Problems Diagnosis/Problems (1) COVID-19 Status: Acute (2) Pneumonia Status: Acute Qualifiers: Pneumonia type: due to unspecified organism Laterality: bilateral Lung location: lower lobe of lung Qualified Codes: J18.9 - Pneumonia, unspecified organism (3) Hypoxia Status: Acute (4) Hemoptysis Status: Acute AUGUSTA YANES DO Jul 17, 2023 17:21
--- NOTE | 2023-07-17 17:55 | Tele-ICU Progress Note ---
Subjective Date Seen by a Provider: Jul 17, 2023 Time Seen by a Provider: 17:54 Subjective/Events-last exam (Tele-ICU Physician , consultation as per request of PCP Service provided via interactive audio and video telecommunications E-CARE system to a patient admitted to ICU bed in [facility]. Available chart/ vitals / labs / Images reviewed H&P is from ER notes Patient's information available about PMH, Shx, Fhx allergy reviewed inEMR. ROS as per chart and RN report Now in ICU, hemodynamically stable Video assessment done using teleICU camera, rest of exam as per RN Discussed with RN. Hospital course: (07/17) 88F Admitted with Hemoptysis and PNA. Covid positive since 07/15, A/P Acute hypoxic resp failure - CT chest - NO pe , + PNA COVID PNA - dx 07/15 - started on molnupiravir - now on Dexa IV PNA , covid , but can not r/o bacterial - cefepime/ z max stated Hemoptysis - most likley with PNA - reported small amounts of bright red blood mixed with mucus- will monitor , none in ICU - cough supression ( patient is allergic to codeine DNR Lines : periph , (Central Line Necessity Reviewed) Garcia: OG: Nutrition: po Analgesia: Anxiety/ delirium VTE Prophylaxis: zoey sq Stress Ulcer Prophylaxis: na Plans in collaboration with bedside consultants and IM MDs. Discussed with RN to reach out if any questions or concerns A total of 25 minutes of critical care time was devoted to this patient today, required to treat and/or prevent further deterioration of critical care condition ( as above ) . I am remotely monitoring this patient from another state. I am unable to do the bedside exam, and history/physical and pertinent information is taken from other notes in the computer and bedside staff. . Sepsis Event Evaluation Height, Weight, BMI Height: 5'7.00" Weight: 180lbs. oz. 81.455671gl; 23.50 BMI Method:Stated Focused Exam Lactate Level 07/17/23 10:40: Lactic Acid Level 1.05 Exam Exam Patient acknowledged, consented, and participated in this virtual visit which was conducted using real time audio/video Vital Signs Date Time Temp Pulse Resp B/P (MAP) Pulse Ox O2 Delivery O2 Flow Rate FiO2 07/17/23 17:00 69 13 138/76 (96) 95 Nasal Cannula 2.00 07/17/23 17:00 36.4 07/17/23 16:15 37.0 66 89 21 07/17/23 16:12 66 07/17/23 14:48 61 16 143/62 97 Nasal Cannula 2.00 07/17/23 13:40 37.0 66 18 162/70 Room Air 07/17/23 11:06 92 Nasal Cannula 2.00 07/17/23 10:36 37.0 66 18 162/70 (100) Room Air Height & Weight Height: 5'7.00" Weight: 180lbs. oz. 81.176685yc; 23.50 BMI Method:Stated General Appearance: WD/WN, Mild Distress, Other (Appears to be mildly uncomfortable and ill) HEENT: PERRL/EOMI, Normal ENT Inspection, Other (bloody mucus in oropharynx) Neck: Normal Inspection Respiratory: Crackles (faint in left base), Decreased Breath Sounds, Other (appears mildly dyspneic) Cardiovascular: Regular Rate, Rhythm, No Edema, No Murmur Capillary Refill: Less Than 3 Seconds Extremity: Normal Inspection Neurologic/Psychiatric: Alert, Normal Mood/Affect, Other (poor historian, daughter helps with history) Skin: Normal Color, Warm/Dry Results Lab Laboratory Tests 07/17/23 10:40 Assessment/Plan Assessment/Plan 1 JAYSHREE CABAN MD Jul 17, 2023 17:55
[2023-07-17] MEDS: RT-ALBUTEROL HFA 8.5 GM INHALER IH SCH ×2 (19:02→22:31)
[2023-07-17] MEDS ORDERED: MAGN250C PO (20:15)
[2023-07-17] MEDS ORDERED: GABA300S3 PO (20:15)
[2023-07-17] MEDS: DOCUSATE SODIUM 100 MG CAPSULE PO SCH (21:22)
[2023-07-17] MEDS: inSUlin ASPART 1 UNIT/0.01 ML (PER UNIT) SC SCH (21:25)
[2023-07-17] MEDS ORDERED: NORTRIPTYLINE 10 MG CAPSULE PO SCH (21:46)
[2023-07-17] MEDS: carvediloL 12.5 MG TABLET PO SCH (22:02)
[2023-07-17] MEDS: PYRIDOXINE (VITAMIN B-6) 50 MG TABLET PO SCH (22:03)
[2023-07-17] MEDS: PRAMIPEXOLE 0.125 MG TABLET PO SCH (22:04)
[2023-07-17] MEDS: FERROUS SULFATE 325 MG (IRON) TABLET PO SCH (22:04)
[2023-07-18] MEDS: RT-ALBUTEROL HFA 8.5 GM INHALER IH SCH ×5 (02:52→21:45)
[2023-07-18] MEDS ORDERED: CEFEPIME INJECTION 2,000 MG in NS (IVPB) 50 ML 50 ML IV SCH (04:30)
[2023-07-18 04:55] LABS: BASOPHILS % (AUTO) 0 % (0-10); MEAN CORPUSCULAR VOLUME 86 fL (80-99)
[2023-07-18 04:58] LABS: EOSINOPHILS % (AUTO) 0 % (0-10); HEMATOCRIT 30 % (35-52); LYMPHOCYTES # (AUTO) 0.9 10^3/uL (1.0-4.0); LYMPHOCYTES % (AUTO) 11 % (12-44); MEAN CORPUSCULAR HEMOGLOBIN 29 pg (25-34); MEAN CORPUSCULAR HGB CONC 33 g/dL (32-36); MEAN PLATELET VOLUME 11.6 fL (9.0-12.2); MONOCYTES # (AUTO) 0.2 10^3/uL (0.0-1.0); MONOCYTES % (AUTO) 2 % (0-12); NEUTROPHILS % (AUTO) 84 % (42-75); PLATELET COUNT 126 10^3/uL (130-400); WHITE BLOOD COUNT 8.3 10^3/uL (4.3-11.0)
[2023-07-18 04:59] LABS: SMEAR SCAN COMMENT YES
[2023-07-18 05:05] LABS: ALBUMIN 3.4 GM/DL (3.2-4.5)
[2023-07-18 05:06] LABS: CALCIUM 8.5 MG/DL (8.5-10.1)
[2023-07-18 05:07] LABS: TOTAL PROTEIN 6.2 GM/DL (6.4-8.2)
[2023-07-18 05:09] LABS: BILIRUBIN,TOTAL 0.6 MG/DL (0.1-1.0)
[2023-07-18 05:11] LABS: CREATININE SERUM 0.98 MG/DL (0.60-1.30)
[2023-07-18 05:28] LABS: PHOSPHORUS 2.9 MG/DL (2.3-4.7)
[2023-07-18 05:30] LABS: MAGNESIUM 1.6 MG/DL (1.6-2.4)
[2023-07-18] MEDS ORDERED: hydrALAZINE INJECTION 20 MG/ML VIAL IV PRN (05:45)
[2023-07-18] MEDS ORDERED: NS IV 500 ML 500 ML IV PRN (05:45)
[2023-07-18] MEDS: inSUlin ASPART 1 UNIT/0.01 ML (PER UNIT) SC SCH ×4 (05:51→20:57)
[2023-07-18] MEDS: MAGNESIUM 1 GM/100 ML IVPB 100 ML IV SCH ×4 (05:58→10:19)
[2023-07-18] MEDS ORDERED: MAGNESIUM 1 GM/100 ML IVPB 100 ML IV SCH (06:00)
[2023-07-18] MEDS ORDERED: POTASSIUM CHLORIDE 20 MEQ TABLET PO SCH (06:00)
[2023-07-18] MEDS ORDERED: POTASSIUM CL 10MEQ/50ML IVPB 50 ML IV SCH (06:00)
[2023-07-18] MEDS: metFORMIN 500 MG TABLET PO SCH ×2 (06:46→17:27)
--- NOTE | 2023-07-18 07:01 | Progress Note ---
Subjective Date Seen by a Provider: Jul 18, 2023 Time Seen by a Provider: 11:00 Subjective/Events-last exam Patient doing a lot better Remains in isolation Family at the bedside Playing cards No pain Cough is improved Minimal hemoptysis Lungs are dramatically improved on exam today Review of Systems General: Fatigue Pulmonary: Dyspnea, Cough Focused Exam Lactate Level 07/17/23 10:40: Lactic Acid Level 1.05 Objective Exam Last Set of Vital Signs Vital Signs Date Time Temp Pulse Resp B/P (MAP) Pulse Ox O2 Delivery O2 Flow Rate FiO2 07/18/23 04:00 93 Nasal Cannula 2.00 07/18/23 04:00 36.3 61 22 172/83 (112) 07/17/23 16:15 21 Capillary Refill : Less Than 3 Seconds I&O Intake and Output 07/18/23 00:00 Intake Total 850 ml Balance 850 ml Intake Oral 250 ml IV Total 600 ml # Voids 3 Daily Weight Change No General: Alert, Oriented X3, Cooperative, No Acute Distress Lungs: Clear to Auscultation, Normal Air Movement Heart: Regular Rate, Normal S1, Normal S2, No Murmurs Psych/Mental Status: Mental Status NL, Mood NL Results Lab Laboratory Tests 07/17/23 10:40: White Blood Count 11.9H, Red Blood Count 3.80, Hemoglobin 10.7L, Hematocrit 34L, Mean Corpuscular Volume 88, Mean Corpuscular Hemoglobin 28, Mean Corpuscular Hemoglobin Concent 32, Red Cell Distribution Width 14.2, Platelet Count 118L, Mean Platelet Volume 11.7, Immature Granulocyte % (Auto) 1, Neutrophils (%) (Auto) 77H, Lymphocytes (%) (Auto) 14, Monocytes (%) (Auto) 4, Eosinophils (%) (Auto) 4, Basophils (%) (Auto) 0, Neutrophils # (Auto) 9.1H, Lymphocytes # (Auto) 1.7, Monocytes # (Auto) 0.4, Eosinophils # (Auto) 0.5H, Basophils # (Au to) 0.0, Immature Granulocyte # (Auto) 0.2H, Percent Immature Platelet Fraction 6.5, Prothrombin Time 14.4, INR Comment 1.1, Activated Partial Thromboplast Time 42H, Sodium Level 140, Potassium Level 3.8, Chloride Level 109H, Carbon Dioxide Level 19L, Anion Gap 12, Blood Urea Nitrogen 29H, Creatinine 1.17, Estimat Glomerular Filtration Rate 45, BUN/Creatinine Ratio 25, Glucose Level 178H, Lactic Acid Level 1.05, Calcium Level 9.2, Corrected Calcium 9.4, Total Bilirubin 0.6, Aspartate Amino Transf (AST/SGOT) 11, Alanine Aminotransferase (ALT/SGPT) 15, Alkaline Phosphatase 82, Total Protein 6.8, Albumin 3.8 07/17/23 21:18: Glucometer 241H 07/18/23 04:47: White Blood Count 8.3, Red Blood Count 3.51L, Hemoglobin 10.0L, Hematocrit 30L, Mean Corpuscular Volume 86, Mean Corpuscular Hemoglobin 29, Mean Corpuscular Hemoglobin Concent 33, Red Cell Distribution Width 14.0, Platelet Count 126L, Mean Platelet Volume 11.6, Immature Granulocyte % (Auto) 3, Neutrophils (%) (Auto) 84H, Lymphocytes (%) (Auto) 11L, Monocytes (%) (Auto) 2, Eosinophils (%) (Auto) 0, Basophils (%) (Auto) 0, Neutrophils # (Auto) 7.0, Lymphocytes # (Auto) 0.9L, Monocytes # (Auto) 0.2, Eosinophils # (Auto) 0.0, Basophils # (Auto) 0.0, Immature Granulocyte # (Auto) 0.2H, Percent Immature Platelet Fraction 6.0, Sodium Level 140, Potassium Level 4.0, Chloride Level 114H, Carbon Dioxide Level 17L, Anion Gap 9, Blood Urea Nitrogen 22H, Creatinine 0.98, Estimat Glomerular Filtration Rate 55, BUN/Creatinine Ratio 22, Glucose Level 225H, Calcium Level 8.5, Corrected Calcium 9.0, Total Bilirubin 0.6, Aspartate Amino Transf (AST/SGOT) 10, Alanine Aminotransferase (ALT/SGPT) 15, Alkaline Phosphatase 52, Total Protein 6.2L, Albumin 3.4, Phosphorus Level 2.9, Magnesium Level 1.6, S mear Scan YES Assessment/Plan Assessment/Plan Assess & Plan/Chief Complaint Assessment: Acute hypoxic respiratory failure COVID Sepsis Hemoptysis Bacterial pneumonia Advanced age Osteoporosis Hypothyroidism Leukocytosis Dehydration Plan: IV antibiotics IV steroids Home meds Oxygen Moved to fourth floor Diagnosis/Problems Diagnosis/Problems (1) COVID-19 Status: Acute (2) Pneumonia Status: Acute Qualifiers: Qualified Codes: J18.9 - Pneumonia, unspecified organism (3) Hypoxia Status: Acute (4) Hemoptysis Status: Acute KVNG ELLIS DO Jul 18, 2023 07:01
[2023-07-18] MEDS: PRAMIPEXOLE 0.125 MG TABLET PO SCH ×2 (08:36→20:57)
[2023-07-18] MEDS: LEVOTHYROXINE 150 MCG TABLET PO SCH (08:37)
[2023-07-18] MEDS: carvediloL 12.5 MG TABLET PO SCH ×2 (08:37→17:27)
[2023-07-18] MEDS: DOCUSATE SODIUM 100 MG CAPSULE PO SCH ×2 (08:38→20:57)
[2023-07-18] MEDS: dexAMETHasone INJ 10 MG/ML 1 ML VIAL IV SCH (08:38)
[2023-07-18] MEDS: NS IV 1000 ML 1,000 ML IV SCH ×2 (08:40→10:18)
[2023-07-18] MEDS: CEFEPIME 1,000 MG/NS 50 ML IVPB IV SCH ×4 (12:06→20:58)
[2023-07-18 16:00] VITALS: BP 167/62
[2023-07-18] MEDS: ENOXAPARIN 40 MG/0.4 ML SYRINGE SC SCH (16:26)
[2023-07-18] MEDS: AZITHROMYCIN INJECTION 500 MG in NS (IVPB) 250 ML 250 ML IV SCH (16:26)
[2023-07-18 18:24] VITALS: BP 167/62
[2023-07-18 19:49] VITALS: BP 145/70
[2023-07-18] MEDS: PYRIDOXINE (VITAMIN B-6) 50 MG TABLET PO SCH (20:57)
[2023-07-18] MEDS: FERROUS SULFATE 325 MG (IRON) TABLET PO SCH (20:58)
[2023-07-18] MEDS ORDERED: NORTRIPTYLINE 25 MG CAPSULE PO SCH (21:00)
[2023-07-18] MEDS ORDERED: toPIRamate 100 MG (TOPAMAX) TAB PO SCH (21:00)
[2023-07-19 00:39] VITALS: BP 161/68
[2023-07-19] MEDS: RT-ALBUTEROL HFA 8.5 GM INHALER IH SCH ×2 (03:20→07:43)
[2023-07-19] MEDS: CEFEPIME 1,000 MG/NS 50 ML IVPB IV SCH ×4 (03:24→11:51)
[2023-07-19 03:52] VITALS: BP 174/75
[2023-07-19] MEDS: inSUlin ASPART 1 UNIT/0.01 ML (PER UNIT) SC SCH ×2 (06:14→12:29)
[2023-07-19] MEDS: LEVOTHYROXINE 150 MCG TABLET PO SCH (06:18)
[2023-07-19 06:19] LABS: BASOPHILS % (AUTO) 0 % (0-10); EOSINOPHILS % (AUTO) 0 % (0-10); HEMATOCRIT 31 % (35-52); HEMOGLOBIN 10.3 g/dL (11.5-16.0); LYMPHOCYTES # (AUTO) 1.4 10^3/uL (1.0-4.0); LYMPHOCYTES % (AUTO) 13 % (12-44); MEAN CORPUSCULAR HEMOGLOBIN 28 pg (25-34); MEAN CORPUSCULAR HGB CONC 33 g/dL (32-36); MEAN CORPUSCULAR VOLUME 85 fL (80-99); MEAN PLATELET VOLUME 11.4 fL (9.0-12.2); MONOCYTES # (AUTO) 0.4 10^3/uL (0.0-1.0); MONOCYTES % (AUTO) 3 % (0-12); NEUTROPHILS # (AUTO) 8.6 10^3/uL (1.8-7.8); NEUTROPHILS % (AUTO) 82 % (42-75); PLATELET COUNT 174 10^3/uL (130-400); WHITE BLOOD COUNT 10.4 10^3/uL (4.3-11.0)
[2023-07-19 06:33] LABS: ALBUMIN 3.3 GM/DL (3.2-4.5); POTASSIUM 3.6 MMOL/L (3.6-5.0)
[2023-07-19 06:34] LABS: CALCIUM 8.3 MG/DL (8.5-10.1)
[2023-07-19 06:35] LABS: TOTAL PROTEIN 6.1 GM/DL (6.4-8.2)
[2023-07-19 06:37] LABS: BILIRUBIN,TOTAL 0.8 MG/DL (0.1-1.0)
[2023-07-19 06:39] LABS: CREATININE SERUM 0.95 MG/DL (0.60-1.30)
--- NOTE | 2023-07-19 07:20 | Progress Note ---
Subjective Date Seen by a Provider: Jul 19, 2023 Time Seen by a Provider: 11:00 Focused Exam Lactate Level 07/17/23 10:40: Lactic Acid Level 1.05 Objective Exam Last Set of Vital Signs Vital Signs Date Time Temp Pulse Resp B/P (MAP) Pulse Ox O2 Delivery O2 Flow Rate FiO2 07/19/23 03:52 36.7 58 20 174/75 (108) 95 Nasal Cannula 2.00 07/18/23 18:24 21 Capillary Refill : Less Than 3 Seconds I&O Intake and Output 07/19/23 00:00 Intake Total 1650 ml Balance 1650 ml Intake Oral 1550 ml IV Total 100 ml # Voids 7 Results Lab Laboratory Tests 07/18/23 17:12: Glucometer 387H 07/18/23 19:51: Glucometer 332H 07/19/23 05:56: Glucometer 231H 07/19/23 06:07: White Blood Count 10.4, Red Blood Count 3.67L, Hemoglobin 10.3L, Hematocrit 31L, Mean Corpuscular Volume 85, Mean Corpuscular Hemoglobin 28, Mean Corpuscular Hemoglobin Concent 33, Red Cell Distribution Width 13.6, Platelet Count 174, Mean Platelet Volume 11.4, Immature Granulocyte % (Auto) 1, Neutrophils (%) (Auto) 82H, Lymphocytes (%) (Auto) 13, Monocytes (%) (Auto) 3, Eosinophils (%) (Auto) 0, Basophils (%) (Auto) 0, Neutrophils # (Auto) 8.6H, Lymphocytes # (Auto) 1.4, Monocytes # (Auto) 0.4, Eosinophils # (Auto) 0.0, Basophils # (Auto) 0.0, Immature Granulocyte # (Auto) 0.1, Sodium Level 138, Potassium Level 3.6, Chloride Level 113H, Carbon Dioxide Level 17L, Anion Gap 8, Blood Urea Nitrogen 23H, Creatinine 0.95, Estimat Glomerular Filtration Rate 57, BUN/Creatinine Ratio 24, Glucose Level 235H, Calcium Level 8.3L, Corrected Calcium 8.9, Total Bilirubin 0.8, Aspartate Amino Transf (AST/SGOT) 9, Alanine Aminotransferase (ALT/SGPT) 13, Alkaline Phosphatase 54, Total Protein 6.1L, Albumin 3.3 Microbiology 07/17/23 MRSA Screen - Final, Complete MRSA not isolated 07/17/23 Blood Culture - Preliminary, Resulted Assessment/Plan Assessment/Plan Assess & Plan/Chief Complaint Assessment: Acute hypoxic respiratory failure COVID Sepsis Hemoptysis Bacterial pneumonia Advanced age Osteoporosis Hypothyroidism Leukocytosis Dehydration Plan: IV antibiotics IV steroids Home meds Oxygen Moved to fourth floor Diagnosis/Problems Diagnosis/Problems (1) COVID-19 Status: Acute (2) Pneumonia Status: Acute Qualifiers: Qualified Codes: J18.9 - Pneumonia, unspecified organism (3) Hypoxia Status: Acute (4) Hemoptysis Status: Acute KVNG ELLIS DO Jul 19, 2023 07:20
[2023-07-19 08:52] VITALS: BP 154/80
[2023-07-19] MEDS: dexAMETHasone INJ 10 MG/ML 1 ML VIAL IV SCH (08:54)
[2023-07-19] MEDS: carvediloL 12.5 MG TABLET PO SCH (08:54)
[2023-07-19] MEDS: DOCUSATE SODIUM 100 MG CAPSULE PO SCH (08:54)
[2023-07-19] MEDS: metFORMIN 500 MG TABLET PO SCH (08:54)
[2023-07-19] MEDS: PRAMIPEXOLE 0.125 MG TABLET PO SCH (08:54)
[2023-07-19] MEDS ORDERED: CEFD300C3 PO (11:28)
[2023-07-19] MEDS ORDERED: AZIT250T12 PO (11:28)
[2023-07-19] MEDS ORDERED: DEXA4TAB PO (11:28)
--- NOTE | 2023-07-19 11:30 | Discharge Summary ---
Diagnosis/Chief Complaint Date of Admission Jul 17, 2023 at 15:30 Date of Discharge Discharge Date: Jul 19, 2023 Discharge Diagnosis Assessment: Acute hypoxic respiratory failure COVID Sepsis Hemoptysis Bacterial pneumonia Advanced age Osteoporosis Hypothyroidism Leukocytosis Dehydration Plan: IV antibiotics IV steroids Home meds Oxygen Cardiac stepdown Discharge Summary Discharge Physical Examination Allergies: Coded Allergies: Sulfa (Sulfonamide Antibiotics) (Unverified Allergy, Severe, CLOSES THROAT, 12/27/18) codeine (Unverified Allergy, Severe, CLOSES THROAT, 12/27/18) Iodinated Contrast Media (Unverified Allergy, Intermediate, HIVES, 12/27/18) lisinopril (Unverified Adverse Reaction, Intermediate, CHRONIC COUGH, 12/27/18) hydrocodone (Unverified Adverse Reaction, Unknown, Hives, 05/09/22) pregabalin (Unverified Adverse Reaction, Unknown, 12/27/18) Vitals & I&Os Vital Signs Date Time Temp Pulse Resp B/P (MAP) Pulse Ox O2 Delivery O2 Flow Rate FiO2 07/19/23 13:10 36.6 73 18 143/76 94 Room Air 07/19/23 08:52 2.00 07/18/23 18:24 21 General Appearance: Alert, Oriented X3, Cooperative Respiratory: Clear to Auscultation Cardiovascular: Regular Rate Psych/Mental Status: Mental Status NL Hospital Course Was the Problem List Reviewed?: Yes Uneventful hospital course after she was admitted for acute hypoxic respiratory failure due to COVID. Oxygen maintained and IV antibiotics maintained. Patient recovered quickly and was back to her baseline function physically and mentally and was able to discharge improved condition. Labs (last 24 hrs) Laboratory Tests 07/17/23 10:40: White Blood Count 11.9H, Red Blood Count 3.80, Hemoglobin 10.7L, Hematocrit 34L, Mean Corpuscular Volume 88, Mean Corpuscular Hemoglobin 28, Mean Corpuscular Hemoglobin Concent 32, Red Cell Distribution Width 14.2, Platelet Count 118L, Mean Platelet Volume 11.7, Immature Granulocyte % (Auto) 1, Neutrophils (%) (Auto) 77H, Lymphocytes (%) (Auto) 14, Monocytes (%) (Auto) 4, Eosinophils (%) (Auto) 4, Basophils (%) (Auto) 0, Neutrophils # (Auto) 9.1H, Lymphocytes # (Auto) 1.7, Monocytes # (Auto) 0.4, Eosinophils # (Auto) 0.5H, Basophils # (Auto) 0.0, Immature Granulocyte # (Auto) 0.2H, Percent Immature Platelet Fraction 6.5, Prothrombin Time 14.4, INR Comment 1.1, Activated Partial Th romboplast Time 42H, Sodium Level 140, Potassium Level 3.8, Chloride Level 109H, Carbon Dioxide Level 19L, Anion Gap 12, Blood Urea Nitrogen 29H, Creatinine 1.17, Estimat Glomerular Filtration Rate 45, BUN/Creatinine Ratio 25, Glucose Level 178H, Lactic Acid Level 1.05, Calcium Level 9.2, Corrected Calcium 9.4, Total Bilirubin 0.6, Aspartate Amino Transf (AST/SGOT) 11, Alanine Aminotransferase (ALT/SGPT) 15, Alkaline Phosphatase 82, Total Protein 6.8, Albumin 3.8 07/17/23 21:18: Glucometer 241H 07/18/23 04:47: White Blood Count 8.3, Red Blood Count 3.51L, Hemoglobin 10.0L, Hematocrit 30L, Mean Corpuscular Volume 86, Mean Corpuscular Hemoglobin 29, Mean Corpuscular Hemoglobin Concent 33, Red Cell Distribution Width 14.0, Platelet Count 126L, Mean Platelet Volume 11.6, Immature Granulocyte % (Auto) 3, Neutrophils (%) (Auto) 84H, Lymphocytes (%) (Auto) 11L, Monocytes (%) (Auto) 2, Eosinophils (%) (Auto) 0, Basophils (%) (Auto) 0, Neutrophils # (Auto) 7.0, Lymphocytes # (Auto) 0.9L, Monocytes # (Auto) 0.2, Eosinophils # (Auto) 0.0, Basophils # (Auto) 0.0, Immature Granulocyte # (Auto) 0.2H, Percent Immature Platelet Fraction 6.0, Sodium Level 140, Potassium Level 4.0, Chloride Level 114H, Carbon Dioxide Level 17L, Anion Gap 9, Blood Urea Nitrogen 22H, Creatinine 0.98, Estimat Glomerular Filtration Rate 55, BUN/Creatinine Ratio 22, Glucose Level 225H, Calcium Level 8.5, Corrected Calcium 9.0, Total Bilirubin 0.6, Aspartate Amino Transf (AST/SGOT) 10, Alanine Aminotransferase (ALT/SGPT) 15, Alkaline Phosphatase 52, Total Protein 6.2L, Albumin 3.4, Phosphorus Level 2.9, Magnesium Level 1.6, Smear Scan YES 07/18/23 17:12: Glucometer 387H 07/18/23 19:51: Glucometer 332H 07/19/23 05:56: Glucometer 231H 07/19/23 06:07: White Blood Count 10.4, Red Blood Count 3.67L, Hemoglobin 10.3L, Hematocrit 31L, Mean Corpuscular Volume 85, Mean Corpuscular Hemoglobin 28, Mean Corpuscular Hemoglobin Concent 33, Red Cell Distribution Width 13.6, Platelet Count 174, Mean Platelet Volume 11.4, Immature Granulocyte % (Auto) 1, Neutrophils (%) (Auto) 82H, Lymphocytes (%) (Auto) 13, Monocytes (%) (Auto) 3, Eosinophils (%) (Auto) 0, Basophils (%) (Auto) 0, Neutrophils # (Auto) 8.6H, Lymphocytes # (Auto) 1.4, Monocytes # (Auto) 0.4, Eosinophils # (Auto) 0.0, Basophils # (Auto) 0.0, Immature Granulocyte # (Auto) 0.1, Sodium Level 138, Potassium Level 3.6, Chloride Level 113H, Carbon Dioxide Level 17L, Anion Gap 8, Blood Urea Nitrogen 23H, Creatinine 0.95, Estimat Glomerular Filtration Rate 57, BUN/Creatinine Ratio 24, Glucose Level 235H, Calcium Level 8.3L, Corrected Calcium 8.9, Total Bilirubin 0.8, Aspartate Amino Transf (AST/SGOT) 9, Alanine Aminotransferase (ALT/SGPT) 13, Alkaline Phosphatase 54, Total Protein 6.1L, Albumin 3.3 07/19/23 12:04: Glucometer 245H Microbiology 07/17/23 MRSA Screen - Final, Complete MRSA not isolated 07/17/23 Blood Culture - Preliminary, Resulted Pending Labs Microbiology Date/Time Source Procedure Growth Status 07/17/23 17:00 Nasal MRSA Screen - Final MRSA not isolated Complete 07/17/23 10:50 Peripheral Right Wrist Blood Culture - Preliminary Resulted 07/17/23 10:40 Sputum Expectorated Gram Stain - Final Complete 07/17/23 10:40 Sputum Culture - Final Usual upper respiratory brie Complete 07/17/23 10:40 Peripheral Lt Ac Blood Culture - Preliminary Resulted Laboratory Tests 07/17/23 10:40: White Blood Count 11.9, Red Blood Count 3.80, Hemoglobin 10.7, Hematocrit 34, Mean Corpuscular Volume 88, Mean Corpuscular Hemoglobin 28, Mean Corpuscular Hemoglobin Concent 32, Red Cell Distribution Width 14.2, Platelet Count 118, Mean Platelet Volume 11.7, Immature Granulocyte % (Auto) 1, Neutrophils (%) (Auto) 77, Lymphocytes (%) (Auto) 14, Monocytes (%) (Auto) 4, Eosinophils (%) (Auto) 4, Basophils (%) (Auto) 0, Neutrophils # (Auto) 9.1, Lymphocytes # (Auto) 1.7, Monocytes # (Auto) 0.4, Eosinophils # (Auto) 0.5, Basophils # (Auto) 0.0, Immature Granulocyte # (Auto) 0.2, Percent Immature Platelet Fraction 6.5, Prothrombin Time 14.4, INR Comment 1.1, Activated Partial Thromboplast Time 42, Sodium Level 140, Potassium Level 3.8, Chloride Level 109, Carbon Dioxide Level 19, Anion Gap 12, Blood Urea Nitrogen 29, Creatinine 1.17, Estimat Glomerular Filtration Rate 45, BUN/Creatinine Ratio 25, Glucose Level 178, Lactic Acid Level 1.05, Calcium Level 9.2, Corrected Calcium 9.4, Total Bilirubin 0.6, Aspartate Amino Transf (AST/SGOT) 11, Alanine Aminotransferase (ALT/SGPT) 15, Alkaline Phosphatase 82, Total Protein 6.8, Albumin 3.8 07/17/23 21:18: Glucometer 241 07/18/23 04:47: White Blood Count 8.3, Red Blood Count 3.51, Hemoglobin 10.0, Hematocrit 30, Mean Corpuscular Volume 86, Mean Corpuscular Hemoglobin 29, Mean Corpuscular Hemoglobin Concent 33, Red Cell Distribution Width 14.0, Platelet Count 126, Mean Platelet Volume 11.6, Immature Granulocyte % (Auto) 3, Neutrophils (%) (Auto) 84, Lymphocytes (%) (Auto) 11, Monocytes (%) (Auto) 2, Eosinophils (%) (Auto) 0, Basophils (%) (Auto) 0, Neutrophils # (Auto) 7.0, Lymphocytes # (Auto) 0.9, Monocytes # (Auto) 0.2, Eosinophils # (Auto) 0.0, Basophils # (Auto) 0.0, Immature Granulocyte # (Auto) 0.2, Percent Immature Platelet Fraction 6.0, Sodium Level 140, Potassium Level 4.0, Chloride Level 114, Carbon Dioxide Level 17, Anion Gap 9, Blood Urea Nitrogen 22, Creatinine 0.98, Estimat Glomerular Filtration Rate 55, BUN/Creatinine Ratio 22, Glucose Level 225, Calcium Level 8.5, Corrected Calcium 9.0, Total Bilirubin 0.6, Aspartate Amino Transf (AST/SGOT) 10, Alanine Aminotransferase (ALT/SGPT) 15, Alkaline Phosphatase 52, Total Protein 6.2, Albumin 3.4, Phosphorus Level 2.9, Magnesium Level 1.6, Iron Level [Pending], Vitamin B12 Level [Pending], Smear Scan YES 07/18/23 17:12: Glucometer 387 07/18/23 19:51: Glucometer 332 07/19/23 05:56: Glucometer 231 07/19/23 06:07: White Blood Count 10.4, Red Blood Count 3.67, Hemoglobin 10.3, Hematocrit 31, Mean Corpuscular Volume 85, Mean Corpuscular Hemoglobin 28, Mean Corpuscular Hemoglobin Concent 33, Red Cell Distribution Width 13.6, Platelet Count 174, Mean Platelet Volume 11.4, Immature Granulocyte % (Auto) 1, Neutrophils (%) (Auto) 82, Lymphocytes (%) (Auto) 13, Monocytes (%) (Auto) 3, Eosinophils (%) (Auto) 0, Basophils (%) (Auto) 0, Neutrophils # (Auto) 8.6, Lymphocytes # (Auto) 1.4, Monocytes # (Auto) 0.4, Eosinophils # (Auto) 0.0, Basophils # (Auto) 0.0, Immature Granulocyte # (Auto) 0.1, Sodium Level 138, Potassium Level 3.6, Chloride Level 113, Carbon Dioxide Level 17, Anion Gap 8, Blood Urea Nitrogen 23, Creatinine 0.95, Estimat Glomerular Filtration Rate 57, BUN/Creatinine Ratio 24, Glucose Level 235, Calcium Level 8.3, Corrected Calcium 8.9, Total Bilir ubin 0.8, Aspartate Amino Transf (AST/SGOT) 9, Alanine Aminotransferase (ALT/SGPT) 13, Alkaline Phosphatase 54, Total Protein 6.1, Albumin 3.3 07/19/23 12:04: Glucometer 245 Discharge Home Medications: Active Scripts Active Cefdinir 300 Mg Capsule 300 Mg PO BID Azithromycin 250 Mg Tablet 250 Mg PO DAILY Dexamethasone 4 Mg Tablet 4 Mg PO DAILY Ventolin Hfa (Albuterol Sulfate) 90 Mcg Hfa.aer.ad 18 Gm INH Q6HRS PRN Metformin HCl 500 Mg Tablet 500 Mg PO BID WITH MEALS Atorvastatin Calcium 10 Mg Tablet 10 Mg PO DAILY Reported Magnesium (Magnesium Citrate and Oxide) 250 Mg Capsule 250 Mg PO DAILY Gabapentin 300 Mg/6 Ml (6 Ml) Solution 300 Mg PO TID Vitamin B-6 (Pyridoxine HCl) 25 Mg Tablet 25 Mg PO HS Magnesium Oxide 400 Mg Tablet 400 Mg PO HS Vitamin C (Ascorbic Acid) 250 Mg Tab 250 Mg PO HS Vitamin D3 (Cholecalciferol (Vitamin D3)) 125 Mcg (5000 Unit) Capsule 125 Mcg PO HS Cetirizine HCl 10 Mg Tablet 10 Mg PO HS Iron (Ferrous Sulfate) 325 Mg (65 Mg Iron) Tablet 325 Mg PO HS Neurontin (Gabapentin) 300 Mg Capsule 600 Mg PO HS TAKES 2 (300MG) CAPS Neurontin (Gabapentin) 300 Mg Capsule 300 Mg PO DAILY Topiramate 50 Mg Tablet 100 Mg PO HS TAKES 2 (50MG) TABS Topiramate 50 Mg Tablet 50 Mg PO DAILY Pramipexole Dihydrochloride (Pramipexole Di-HCl) 0.25 Mg Tablet 0.25 Mg PO BID Carvedilol 25 Mg Tablet 25 Mg PO BID Nortriptyline HCl 50 Mg Capsule 50 Mg PO HS Amlodipine Besylate 2.5 Mg Tablet 2.5 Mg PO DAILY Furosemide 40 Mg Tablet 40 Mg PO DAILY Potassium Chloride 20 Meq Tab.er.prt 20 Meq PO DAILY Levothyroxine Sodium 150 Mcg Tablet 150 Mcg PO DAILY Instructions to patient/family Please see electronic discharge instructions given to patient. Diagnosis/Problems Diagnosis/Problems (1) COVID-19 Status: Acute (2) Pneumonia Status: Acute Qualifiers: Qualified Codes: J18.9 - Pneumonia, unspecified organism (3) Hypoxia Status: Acute (4) Hemoptysis Status: Acute KVNG ELLIS DO Jul 19, 2023 11:30
[2023-07-19 12:40] VITALS: BP 143/76
[2023-07-19 13:10] VITALS: BP 143/76
== END 2023-07-19 13:10 | disposition home or self-care (01) | DRG 871 ==
LOC: EDUNIT# 10:31 → ER FS 10:35 → ICU 15:30 → 4TH 07-18 14:20
PROVIDERS: ADMIT Internal Medicine; ATTEND Internal Medicine
PROC: 8E0ZXY6 Isolation (ICD-10-PCS; principal; 2023-07-17)
DX: A41.89 Other specified sepsis (principal); J12.82 Pneumonia due to coronavirus disease 2019; J96.01 Acute respiratory failure with hypoxia; U07.1 COVID-19; J15.9 Unspecified bacterial pneumonia; J44.0 Chronic obstructive pulmonary disease with (acute) lower respiratory infection; M81.0 Age-related osteoporosis without current pathological fracture; E03.9 Hypothyroidism, unspecified; E86.0 Dehydration; Z66 Do not resuscitate; E78.00 Pure hypercholesterolemia, unspecified; I10 Essential (primary) hypertension; M19.90 Unspecified osteoarthritis, unspecified site; G43.909 Migraine, unspecified, not intractable, without status migrainosus; E11.9 Type 2 diabetes mellitus without complications
CPT/HCPCS: 36415; 71045; 71275; 80053; 82607; 82947; 83540; 83605; 83735; 84100; 85025; 85610; 85730; 87040; 87070; 87081; 87205; 94640; 94664; 94760; Q9967